=== PATIENT | female | born 1940 | race Caucasian/White ===

== ENCOUNTER → 2018-06-12 10:02 | Outpatient (CLI) | payer OTHER, SELFPAY ==
--- NOTE | 2018-06-12 10:20 | DI.REPORT_ITS ---
SYMPTOM/DIAGNOSIS: F/U RT PATELLA FX RIGHT KNEE: Two views. Comparison 06/04/18 There has been no change in alignment of the transverse fracture through the right patella. No new fractures or dislocations are seen. There is a persistent joint effusion present.
== END ==
PROVIDERS: PCP Family Medicine; Visit Provider Orthopaedic Surgery
DX: S82.034D Nondisplaced transverse fracture of right patella, subsequent encounter for closed fracture with routine healing (principal); W10.8XXD Fall (on) (from) other stairs and steps, subsequent encounter
CPT/HCPCS: 99213; 73560

== ENCOUNTER → 2018-06-19 10:20 | Outpatient (CLI) | payer OTHER, SELFPAY | PROVIDERS: PCP Family Medicine; Visit Provider Student in an Organized Health Care Education/Training Program | DX: R00.2 Palpitations (principal); I47.1 Supraventricular tachycardia | CPT/HCPCS: 0298T ==

== ENCOUNTER → 2018-06-25 12:59 | Outpatient (CLI) | payer OTHER, SELFPAY ==
--- NOTE | 2018-06-25 12:47 | DI.REPORT_ITS ---
SYMPTOMS/DIAGNOSIS: F/U RT PATELLA FRACTURE RIGHT KNEE: Comparison is made with 1Aug18. There has been no change in the alignment of the fracture extending transversely through the mid portion of the patella. Degenerative changes are again noted in the medial femoral tibial joint.
== END ==
PROVIDERS: PCP Family Medicine; Visit Provider Orthopaedic Surgery
DX: S82.034D Nondisplaced transverse fracture of right patella, subsequent encounter for closed fracture with routine healing (principal); W10.8XXD Fall (on) (from) other stairs and steps, subsequent encounter
CPT/HCPCS: 99213; 73560

== ENCOUNTER 2018-07-11 10:59 | Outpatient (CLI) | payer OTHER, SELFPAY ==
--- NOTE | 2018-07-11 11:16 | DI.REPORT_ITS ---
SYMPTOMS/DIAGNOSIS: F/U RT PATELLA FX RIGHT KNEE: When compared with previous images again noted is the nondisplaced fracture of the patella. There is some blurring of the fracture line and nothing to suggest that healing is not progressing satisfactorily at the present time.
== END 2018-07-11 11:00 ==
PROVIDERS: PCP Family Medicine; Visit Provider Orthopaedic Surgery
DX: S82.034D Nondisplaced transverse fracture of right patella, subsequent encounter for closed fracture with routine healing (principal); W10.8XXD Fall (on) (from) other stairs and steps, subsequent encounter
CPT/HCPCS: 99213; 73560

== ENCOUNTER 2018-08-02 00:58 | Outpatient (CLI) | payer OTHER, SELFPAY ==
[2018-08-02 14:35] LABS: TSH 2.24 uIU/mL (0.358-3.74)
== END 2018-08-02 01:18 ==
PROVIDERS: PCP Family Medicine; Visit Provider Family Medicine
DX: R79.89 Other specified abnormal findings of blood chemistry (principal)
CPT/HCPCS: 36415; 84443

== ENCOUNTER → 2018-08-13 10:32 | Outpatient (BNVA) | payer OTHER, SELFPAY | PROVIDERS: Visit Provider Orthopaedic Surgery | DX: S82.034D Nondisplaced transverse fracture of right patella, subsequent encounter for closed fracture with routine healing (principal); W10.8XXD Fall (on) (from) other stairs and steps, subsequent encounter | CPT/HCPCS: 99211; 99213 ==

== ENCOUNTER 2018-08-13 10:44 | Outpatient (CLI) | payer OTHER, SELFPAY ==
--- NOTE | 2018-08-13 11:11 | DI.RAD_ITS ---
SYMPTOMS/DIAGNOSIS: F/U RT PATELLA FRACTURE RIGHT KNEE: Two views were obtained and show previously described patellar fracture with no gross interval change in alignment in comparison with examination of 07/11.
== END 2018-08-13 11:04 ==
PROVIDERS: Visit Provider Orthopaedic Surgery
DX: S82.034D Nondisplaced transverse fracture of right patella, subsequent encounter for closed fracture with routine healing (principal)
CPT/HCPCS: 73560

== ENCOUNTER → 2018-08-21 09:25 | Outpatient (BNVA) | payer OTHER, SELFPAY | PROVIDERS: Visit Provider Internal Medicine Cardiovascular Disease | DX: I48.0 Paroxysmal atrial fibrillation (principal); R00.2 Palpitations; I49.1 Atrial premature depolarization; E05.90 Thyrotoxicosis, unspecified without thyrotoxic crisis or storm; E78.5 Hyperlipidemia, unspecified; I47.1 Supraventricular tachycardia | CPT/HCPCS: 99205; 99215 ==

== ENCOUNTER 2018-08-31 12:51 | Emergency (ER) | payer OTHER, SELFPAY ==
[2018-08-31 12:54] VITALS: BP 148/80; PULSE 58; RESP 16; TEMP 37.3; O2SAT 92
--- NOTE | 2018-08-31 13:01 | ED.GENADUL_ITS ---
Discharge Plan Disposition Patient Disposition: HOME Condition: Good Discharge Details Chief Complaint: EyeProblem Clinical Impression: Injury of conjunctiva and corneal abrasion of left eye w/o FB Primary Care Provider: Tatum Castano ED Provider: Pj Mckeon Home Meds and New Rx's Prescriptions: New erythromycin 5 mg/gram (0.5 %) ointment 1.25 cm OP TID 5 Days Qty: 1 RF: 0 Continue multivitamin 1 EACH tablet 1 ea PO DAILY RF: 0 [id number] [Cosamin ASU] 1 EACH capsule 1 ea PO DAILY RF: 0 cholecalciferol (vitamin D3) [Vitamin D3] 2,000 UNIT capsule 1,000 unit PO DAILY RF: 0 hydroxyzine HCl 10 MG tablet 10 mg PO DAILY Qty: 90 RF: 4 simvastatin [Zocor] 20 MG tablet 20 mg PO HS Qty: 90 RF: 4 carbidopa-levodopa 1 EACH tablet 1 ea PO DAILY Qty: 90 RF: 4 apixaban [Eliquis] 5 MG tablet 5 mg PO BID 30 Days Qty: 60 RF: 11 metoprolol tartrate 25 MG tablet 50 mg PO BID 30 Days Qty: 120 RF: 11 ranitidine HCl 300 mg tablet 300 mg PO DAILY Qty: 90 RF: 4 dextran 70-hypromellose [Tears Naturale II] 15 ML drops 2 drp OS DAILY RF: 0 Discharge Instructions Instructions: Corneal Abrasion (ED) Additional Instructions: if pain continues sunday follow up with your shipping and receiving specialist if you have deep eye pain or vision changes return to the emergency department Discharge Data Discharge Physician: Pj Mckeon Medical Decision Making Patient comes in with chief complaint of left eye pain. Was doing yard work and a stick scratched her left eye. Denies vision changes and on exam has corneal abrasion. No evidence of retained foreign body or globe rupture. Will d/c on abx ointment and have her f/u with her eye professional if she still has pain on Sunday Differential Diagnosis iritis, conjunctivitis, corneal abrasion HPI General Mode of arrival: ambulatory . Date/Time Provider Initiated Documentation: 08/31/18 12:57 . Limitations to Documentation: no limitations . Information obtained by: patient . History of Present Illness 78 year old F presents to the emergency department with the chief complaint of left eye pain, described as moderate, with intensity rated at 4. Quality is described as aching, and is localized to the eyes and left. Patient reports no radiation. Patient started experiencing this minute(s) (45) and it has been constant. No relieving factors improve symptom(s), No exacerbating factors reported . Patient notes no other symptoms.. Patient did receive the following treatments prior to arrival, none Related Data Home Medications Medication Instructions Recorded Confirmed multivitamin 1 ea PO DAILY 01/20/13 08/31/18 [id number] 1 ea PO DAILY tab-cap 01/09/14 08/31/18 [Cosamin ASU] cholecalciferol (vitamin D3) 1,000 unit PO DAILY 01/13/15 08/31/18 [Vitamin D3] hydroxyzine HCl 10 mg PO DAILY #90 tab 01/18/18 08/31/18 carbidopa-levodopa 1 ea PO DAILY #90 tab-cap 04/23/18 08/31/18 simvastatin [Zocor] 20 mg PO HS #90 tab-cap 04/23/18 08/31/18 dextran 70-hypromellose [Tears 2 drp OS DAILY 05/28/18 08/21/18 Naturale II] apixaban [Eliquis] 5 mg PO BID 30 Days #60 tab 06/14/18 08/31/18 metoprolol tartrate 50 mg PO BID 30 Days #120 tab 07/09/18 08/31/18 ranitidine 300 mg tablet 300 mg PO DAILY #90 tab 07/23/18 08/31/18 erythromycin 1.25 cm OP TID 5 Days #1 gm 08/31/18 Previous Rx's Medication Instructions Recorded hydroxyzine HCl 10 mg PO DAILY #90 tab 01/18/18 carbidopa-levodopa 1 ea PO DAILY #90 tab-cap 04/23/18 simvastatin [Zocor] 20 mg PO HS #90 tab-cap 04/23/18 apixaban [Eliquis] 5 mg PO BID 30 Days #60 tab 06/14/18 metoprolol tartrate 50 mg PO BID 30 Days #120 tab 07/09/18 ranitidine 300 mg tablet 300 mg PO DAILY #90 tab 07/23/18 erythromycin 1.25 cm OP TID 5 Days #1 gm 08/31/18 Allergies Allergy/AdvReac Type Severity Reaction Status Date / Time codeine AdvReac ITCHY NOSE Verified 08/31/18 12:59 General Stated Complaint: EyeProblem MARIA L: 4 Review of Systems Review of Systems All systems reviewed & are unremarkable except as noted in HPI and below Constitutional Denies chills, Denies fever(s) and Denies weakness Eyes Denies loss of vision ENT Denies change in voice Cardiovascular Denies chest pain and Denies dyspnea Respiratory Denies dyspnea Gastrointestinal Denies abdominal pain, Denies nausea and Denies vomiting Genitourinary Denies dysuria Integumentary/Breasts Denies rash Neurologic Denies loss of vision and Denies weakness Psychiatric Denies depression Endocrine Denies cold intolerance and Denies heat intolerance Allergic/Immunologic Denies urticaria PFSH Family History Mother Depression Father No problems noted. Sister RA (rheumatoid arthritis) Essential hypertension Brain aneurysm Hyperlipidemia Cerebrovascular accident Grandfather No problems noted. Grandfather No problems noted. Grandmother No problems noted. Grandmother No problems noted. Daughter No problems noted. Medical History Snoring (Chronic) Atrial tachycardia (Chronic) PAC (premature atrial contraction) (Chronic) Paroxysmal atrial fibrillation (Chronic) Hyperthyroidism (Resolved) Hyperlipidemia (Chronic) Hyperplastic colon polyp Osteoarthritis of left knee Restless legs syndrome (RLS) Social History Smoking/Tobacco Use Status: Never alcohol intake: current alcohol intake frequency: a few times a week Alcohol type: wine details: no alcohol at all in August 2018 Surgical History Appendectomy (~1956) Arthroplasty of knee (11/26/15) Cholecystectomy Colonoscopy - MAC (~02/2015) Meniscectomy (~2009) Exam Const General: no acute distress Orientation: alert [facility] Head: normal to inspection Ears: external ears normal General nose exam: external nose normal Mouth: moist mucous membranes Eyes Conjunctivae: other (right eye conjunctiva normal; left eye conjunctiva injected , no deep eye pain, no foreign body seen on eyelid eversion, [id number] corneal abrasion at 7 oclock, no evidence of globe rupture neg angelita test) Pupils: PERRL EOM: EOM intact bilaterally Neck Neck: normal visual inspection Resp Effort & Inspection: normal respiratory effort and able to speak in complete sentences Cardio Rate: regular rate Skin General skin exam: no rashes or lesions noted Neuro General: alert and oriented x3 Extrem General: normal to inspection Psych Mental Status: mental status grossly normal Course Vital Signs Temperature 37.3 C 08/31/18 12:54 Pulse 58 L 08/31/18 12:54 Respiratory Rate 16 08/31/18 12:54 Blood Pressure 148/80 H 08/31/18 12:54 Pulse Oximetry 92 L 08/31/18 12:54 Temperature 37.3 C 08/31/18 12:54 Temperature Source Skin 08/31/18 12:54 Pulse 58 L 08/31/18 12:54 Respiratory Rate 16 08/31/18 12:54 Respiratory Effort Non-Labored 08/31/18 12:57 Blood Pressure 148/80 H 08/31/18 12:54 Pulse Oximetry 92 L 08/31/18 12:54 Pain Level 2 08/31/18 12:54
== END 2018-08-31 13:34 | disposition home or self-care (01) ==
LOC: ER 13:41
PROVIDERS: Emergency Provider Emergency Medicine; PCP Family Medicine
DX: S05.02XA Injury of conjunctiva and corneal abrasion without foreign body, left eye, initial encounter (principal); W22.8XXA Striking against or struck by other objects, initial encounter; I10 Essential (primary) hypertension
CPT/HCPCS: 99283

== ENCOUNTER → 2018-12-20 09:20 | Outpatient (BNVA) | payer OTHER, SELFPAY | PROVIDERS: PCP Family Medicine; Visit Provider Internal Medicine Cardiovascular Disease | DX: I49.1 Atrial premature depolarization (principal); E05.90 Thyrotoxicosis, unspecified without thyrotoxic crisis or storm; E78.5 Hyperlipidemia, unspecified; I47.1 Supraventricular tachycardia; R00.2 Palpitations | CPT/HCPCS: 99214 ==

== ENCOUNTER 2019-01-24 10:30 | Emergency (ER) | payer OTHER, SELFPAY ==
[2019-01-24 10:39] VITALS: BP 136/66; PULSE 63; RESP 15; TEMP 36.6; O2SAT 97
--- NOTE | 2019-01-24 11:01 | W.ED.GENAD ---
Discharge Plan Disposition Patient Disposition: HOME Condition: Stable Discharge Details Chief Complaint: Sorethroat Clinical Impression: Acute pharyngitis Primary Care Provider: Tatum Castano ED Provider: Tal Lyons Home Meds and New Rx's Prescriptions: Continued ropinirole 0.5 mg tablet 1 mg PO QHS RF: 0 multivitamin 1 EACH tablet 1 ea PO DAILY RF: 0 Cosamin ASU 1 EACH capsule 1 ea PO DAILY RF: 0 cholecalciferol (vitamin D3) [Vitamin D3] 2,000 UNIT capsule 1,000 unit PO DAILY RF: 0 hydroxyzine HCl 10 MG tablet 10 mg PO DAILY Qty: 90 RF: 4 simvastatin [Zocor] 20 MG tablet 20 mg PO HS Qty: 90 RF: 4 Eliquis 5 MG tablet 5 mg PO BID 30 Days Qty: 60 RF: 11 metoprolol tartrate 25 MG tablet 50 mg PO BID 30 Days Qty: 120 RF: 11 ranitidine HCl 300 mg tablet 300 mg PO DAILY Qty: 90 RF: 4 Tears Naturale II 15 ML drops 2 drp OS DAILY RF: 0 Discharge Instructions Instructions: Pharyngitis (ED) Additional Instructions: You may continue to use your gargles and take appropriate [id number] sore throat lozenges. Please stay well-hydrated during illness and follow-up with your primary care provider as needed for reassessment. Feel free to return to the emergency department for any further concerns Referrals: Tatum Castano MD [Primary Care Provider] - (As needed for reassessment) Discharge Data Discharge Date/Time-TO BE ENTERED AT DEPARTURE: 01/24/19 11:47 Medical Decision Making Patient presenting to the emergency department for chief complaint of sore throat. Patient reports that this began approximately 1 week ago and has been persistent. Patient states that she has been doing salt water gargles but has not helped. She does state that she over the past 2 days has developed some nasal congestion but otherwise has had no fever chills, no difficulty swallowing or breathing, no cough, or other symptoms. Physical exam shows a extremely mild erythematous tonsils that have no hypertrophy, no exudates, uvula midline no other worrisome findings. Given center criteria patient is at very low risk for strep pharyngitis but patient is very concerned about having it so she was offered rapid strep testing which she stated that she would prefer this given duration of symptoms. Rapid strep testing was performed and negative. Patient was encouraged to continue [id number] symptomatic medication as appropriate and to follow-up with primary care provider for any reassessment as needed. Return precautions discussed. After discussion of diagnosis and plan of care patient has no further needs, questions, or concerns and states clear understanding to return to the emergency department for any worsening symptoms. HPI General Mode of arrival: ambulatory. Date/Time Provider Initiated Documentation: 01/24/19 10:33. Limitations to Documentation: no limitations. Information obtained by: patient and RN notes reviewed. History of Present Illness 78 year old F presents to the emergency department with the chief complaint of sore throat, described as mild, with intensity rated at 2. Quality is described as aching, and is localized to the mouth (sore throat). Patient started experiencing this week(s) (1) and it has been constant. No relieving factors improve symptom(s), No exacerbating factors reported . Patient did receive the following treatments prior to arrival, other (Salt water gargle) Related Data Home Medications Medication Instructions Recorded Confirmed multivitamin 1 ea PO DAILY 01/20/13 12/20/18 Cosamin ASU 1 ea PO DAILY tab-cap 01/09/14 12/20/18 cholecalciferol (vitamin D3) 1,000 unit PO DAILY 01/13/15 12/20/18 [Vitamin D3] hydroxyzine HCl 10 mg PO DAILY #90 tab 01/18/18 12/20/18 simvastatin [Zocor] 20 mg PO HS #90 tab-cap 04/23/18 12/20/18 Tears Naturale II 2 drp OS DAILY 05/28/18 12/20/18 Eliquis 5 mg PO BID 30 Days #60 tab 06/14/18 12/20/18 metoprolol tartrate 50 mg PO BID 30 Days #120 tab 07/09/18 12/20/18 ranitidine 300 mg tablet 300 mg PO DAILY #90 tab 07/23/18 12/20/18 ropinirole 0.5 mg tablet 1 mg PO QHS tab 12/20/18 12/20/18 Previous Rx's Medication Instructions Recorded hydroxyzine HCl 10 mg PO DAILY #90 tab 01/18/18 simvastatin [Zocor] 20 mg PO HS #90 tab-cap 04/23/18 Eliquis 5 mg PO BID 30 Days #60 tab 06/14/18 metoprolol tartrate 50 mg PO BID 30 Days #120 tab 07/09/18 ranitidine 300 mg tablet 300 mg PO DAILY #90 tab 07/23/18 Allergies Allergy/AdvReac Type Severity Reaction Status Date / Time codeine AdvReac ITCHY NOSE Verified 01/24/19 10:47 General Stated Complaint: Sorethroat MARIA L: 4 Review of Systems Constitutional Denies chills, Denies fever(s), Denies headache(s) and Denies malaise ENT Denies change in voice, Denies dysphagia, Denies otalgia, Denies headache(s), Reports hoarseness, Denies lip swelling, Denies mouth lesions, Reports nasal congestion, Reports odynophagia, Reports sore throat, Denies throat swelling and Denies tongue swelling Cardiovascular Denies chest pain Respiratory Denies chest congestion and Denies cough Gastrointestinal Denies dysphagia and Reports odynophagia Neurologic Denies headache(s) Allergic/Immunologic Denies lip swelling, Denies throat swelling and Denies tongue swelling [facility] Medical History Snoring (Chronic) Atrial tachycardia (Chronic) PAC (premature atrial contraction) (Chronic) Paroxysmal atrial fibrillation (Chronic) Hyperthyroidism (Resolved) Hyperlipidemia (Chronic) Hyperplastic colon polyp Osteoarthritis of left knee Restless legs syndrome (RLS) Surgical History Appendectomy (~1956) Arthroplasty of knee (11/26/15) Cholecystectomy Colonoscopy - MAC (~02/2015) Meniscectomy (~2009) Family History Mother Depression Father No problems noted. Sister RA (rheumatoid arthritis) Essential hypertension Brain aneurysm Hyperlipidemia Stroke Grandfather No problems noted. Grandfather No problems noted. Grandmother No problems noted. Grandmother No problems noted. Daughter No problems noted. Social History Smoking/Tobacco Use Status: Never Alcohol Intake: current Alcohol Intake frequency: a few times a week Alcohol type: wine Details: no alcohol at all in August 2018 Drug use: Never Substance use type: does not use Do you feel safe at home: Yes Do you feel safe in your relationship?: Yes Exam Const General: cooperative, healthy appearing, comfortable, no acute distress and not ill appearing Orientation: alert, awake and oriented x3 HENMT Head: normal to inspection and normocephalic Ears: hearing grossly normal bilaterally, external ears normal, TM's normal bilaterally and mastoids normal General nose exam: external nose normal and nares normal Face and sinus: normal facial exam Mouth: oral mucosae normal, lip normal, tongue normal, no audible dysphonia, no drooling and no trismus Throat: uvula midline, abnormal tonsil bilaterally erythema; no exudates and no hypertrophy and no peritonsillar masses Neck Neck: normal visual inspection, full ROM, no lymphadenopathy and no meningeal signs Resp Effort & Inspection: normal respiratory effort, able to speak in complete sentences and no stridor Auscultation: clear to auscultation bilaterally Cardio Rate: regular rate Rhythm: regular rhythm Heart Sounds: S1 normal and S2 normal Skin General skin exam: no rashes or lesions noted Course Vital Signs Temperature 36.6 C 01/24/19 10:39 Pulse 63 01/24/19 10:39 Respiratory Rate 15 01/24/19 10:39 Blood Pressure 136/66 01/24/19 10:39 Pulse Oximetry 97 01/24/19 10:39 Temperature 36.6 C 01/24/19 10:39 Temperature Source Temporal Artery Scan 01/24/19 10:39 Pulse 63 01/24/19 10:39 Respiratory Rate 15 01/24/19 10:39 Blood Pressure 136/66 01/24/19 10:39 Blood Pressure Position Sitting 01/24/19 10:39 Pulse Oximetry 97 01/24/19 10:39 Oxygen Delivery Method Room Air 01/24/19 10:39 Oxygen Flow Rate 0 01/24/19 10:39 Pain Level 2 01/24/19 10:39
--- NOTE | 2019-01-24 11:06 | ED.GENADUL_ITS ---
Discharge Plan Disposition Patient Disposition: HOME Condition: Stable Discharge Details Chief Complaint: Sorethroat Clinical Impression: Acute pharyngitis Primary Care Provider: Tatum Castano ED Provider: Tal Lyons Home Meds and New Rx's Prescriptions: Continued ropinirole 0.5 mg tablet 1 mg PO QHS RF: 0 multivitamin 1 EACH tablet 1 ea PO DAILY RF: 0 Cosamin ASU 1 EACH capsule 1 ea PO DAILY RF: 0 cholecalciferol (vitamin D3) [Vitamin D3] 2,000 UNIT capsule 1,000 unit PO DAILY RF: 0 hydroxyzine HCl 10 MG tablet 10 mg PO DAILY Qty: 90 RF: 4 simvastatin [Zocor] 20 MG tablet 20 mg PO HS Qty: 90 RF: 4 Eliquis 5 MG tablet 5 mg PO BID 30 Days Qty: 60 RF: 11 metoprolol tartrate 25 MG tablet 50 mg PO BID 30 Days Qty: 120 RF: 11 ranitidine HCl 300 mg tablet 300 mg PO DAILY Qty: 90 RF: 4 Tears Naturale II 15 ML drops 2 drp OS DAILY RF: 0 Discharge Instructions Instructions: Pharyngitis (ED) Additional Instructions: You may continue to use your gargles and take appropriate [id number] sore throat lozenges. Please stay well-hydrated during illness and follow-up with your primary care provider as needed for reassessment. Feel free to return to the emergency department for any further concerns Referrals: Tatum Castano MD [Primary Care Provider] - (As needed for reassessment) Discharge Data Discharge Date/Time-TO BE ENTERED AT DEPARTURE: 01/24/19 11:47 Medical Decision Making Patient presenting to the emergency department for chief complaint of sore throat. Patient reports that this began approximately 1 week ago and has been persistent. Patient states that she has been doing salt water gargles but has not helped. She does state that she over the past 2 days has developed some n marly congestion but otherwise has had no fever chills, no difficulty swallowing or breathing, no cough, or other symptoms. Physical exam shows a extremely mild erythematous tonsils that have no hypertrophy, no exudates, uvula midline no other worrisome findings. Given center criteria patient is at very low risk for strep pharyngitis but patient is very concerned about having it so she was offered rapid strep testing which she stated that she would prefer this given duration of symptoms. Rapid strep testing was performed and negative. Patient was encouraged to continue [id number] symptomatic medication as appropriate and to follow-up with primary care provider for any reassessment as needed. Return precautions discussed. After discussion of diagnosis and plan of care patient has no further needs, questions, or concerns and states clear understanding to return to the emergency department for any worsening symptoms. HPI General Mode of arrival: ambulatory . Date/Time Provider Initiated Documentation: 01/24/19 10:33 . Limitations to Documentation: no limitations . Information obtained by: patient and RN notes reviewed . History of Present Illness 78 year old F presents to the emergency department with the chief complaint of sore throat, described as mild, with intensity rated at 2. Quality is described as aching, and is localized to the mouth (sore throat). Patient started experiencing this week(s) (1) and it has been constant. No relieving factors improve symptom(s), No exacerbating factors reported . Patient did receive the following treatments prior to arrival, other (Salt water gargle) Related Data Home Medications Medication Instructions Recorded Confirmed multivitamin 1 ea PO DAILY 01/20/13 12/20/18 Cosamin ASU 1 ea PO DAILY tab-cap 01/09/14 12/20/18 cholecalciferol (vitamin D3) 1,000 unit PO DAILY 01/13/15 12/20/18 [Vitamin D3] hydroxyzine HCl 10 mg PO DAILY #90 tab 01/18/18 12/20/18 simvastatin [Zocor] 20 mg PO HS #90 tab-cap 04/23/18 12/20/18 Tears Naturale II 2 drp OS DAILY 05/28/18 12/20/18 Eliquis 5 mg PO BID 30 Days #60 tab 06/14/18 12/20/18 metoprolol tartrate 50 mg PO BID 30 Days #120 tab 07/09/18 12/20/18 ranitidine 300 mg tablet 300 mg PO DAILY #90 tab 07/23/18 12/20/18 ropinirole 0.5 mg tablet 1 mg PO QHS tab 12/20/18 12/20/18 Previous Rx's Medication Instructions Recorded hydroxyzine HCl 10 mg PO DAILY #90 tab 01/18/18 simvastatin [Zocor] 20 mg PO HS #90 tab-cap 04/23/18 Eliquis 5 mg PO BID 30 Days #60 tab 06/14/18 metoprolol tartrate 50 mg PO BID 30 Days #120 tab 07/09/18 ranitidine 300 mg tablet 300 mg PO DAILY #90 tab 07/23/18 Allergies Allergy/AdvReac Type Severity Reaction Status Date / Time codeine AdvReac ITCHY NOSE Verified 01/24/19 10:47 General Stated Complaint: Sorethroat MARIA L: 4 Review of Systems Constitutional Denies chills, Denies fever(s), Denies headache(s) and Denies malaise ENT Denies change in voice, Denies dysphagia, Denies otalgia, Denies headache(s), Reports hoarseness, Denies lip swelling, Denies mouth lesions, Reports nasal congestion, Reports odynophagia, Reports sore throat, Denies throat swelling and Denies tongue swelling Cardiovascular Denies chest pain Respiratory Denies chest congestion and Denies cough Gastrointestinal Denies dysphagia and Reports odynophagia Neurologic Denies headache(s) Allergic/Immunologic Denies lip swelling, Denies throat swelling and Denies tongue swelling [facility] Medical History Snoring (Chronic) Atrial tachycardia (Chronic) PAC (premature atrial contraction) (Chronic) Paroxysmal atrial fibrillation (Chronic) Hyperthyroidism (Resolved) Hyperlipidemia (Chronic) Hyperplastic colon polyp Osteoarthritis of left knee Restless legs syndrome (RLS) Surgical History Appendectomy (~1956) Arthroplasty of knee (11/26/15) Cholecystectomy Colonoscopy - MAC (~02/2015) Meniscectomy (~2009) Family History Mother Depression Father No problems noted. Sister RA (rheumatoid arthritis) Essential hypertension Brain aneurysm Hyperlipidemia Stroke Grandfather No problems noted. Grandfather No problems noted. Grandmother No problems noted. Grandmother No problems noted. Daughter No problems noted. Social History Smoking/Tobacco Use Status: Never Alcohol Intake: current Alcohol Intake frequency: a few times a week Alcohol type: wine Details: no alcohol at all in August 2018 Drug use: Never Substance use type: does not use Do you feel safe at home: Yes Do you feel safe in your relationship?: Yes Exam Const General: cooperative, healthy appearing, comfortable, no acute distress and not ill appearing Orientation: alert, awake and oriented x3 HENMT Head: normal to inspection and normocephalic Ears: hearing grossly normal bilaterally, external ears normal, TM's normal bilaterally and mastoids normal General nose exam: external nose normal and nares normal Face and sinus: normal facial exam Mouth: oral mucosae normal, lip normal, tongue normal, no audible dysphonia, no drooling and no trismus Throat: uvula midline, abnormal tonsil bilaterally erythema; no exudates and no hypertrophy and no peritonsillar masses Neck Neck: normal visual inspection, full ROM, no lymphadenopathy and no meningeal signs Resp Effort & Inspection: normal respiratory effort, able to speak in complete sentences and no stridor Auscultation: clear to auscultation bilaterally Cardio Rate: regular rate Rhythm: regular rhythm Heart Sounds: S1 normal and S2 normal Skin General skin exam: no rashes or lesions noted Course Vital Signs Temperature 36.6 C 01/24/19 10:39 Pulse 63 01/24/19 10:39 Respiratory Rate 15 01/24/19 10:39 Blood Pressure 136/66 01/24/19 10:39 Pulse Oximetry 97 01/24/19 10:39 Temperature 36.6 C 01/24/19 10:39 Temperature Source Temporal Artery Scan 01/24/19 10:39 Pulse 63 01/24/19 10:39 Respiratory Rate 15 01/24/19 10:39 Blood Pressure 136/66 01/24/19 10:39 Blood Pressure Position Sitting 01/24/19 10:39 Pulse Oximetry 97 01/24/19 10:39 Oxygen Delivery Method Room Air 01/24/19 10:39 Oxygen Flow Rate 0 01/24/19 10:39 Pain Level 2 01/24/19 10:39
== END 2019-01-24 11:47 | disposition home or self-care (01) ==
PROVIDERS: Emergency Provider Nurse Practitioner Family; PCP Family Medicine
DX: J02.9 Acute pharyngitis, unspecified (principal)
CPT/HCPCS: 87880; 99282; 87081

== ENCOUNTER 2019-02-26 22:22 | Emergency (ER) | payer OTHER, SELFPAY ==
[2019-02-26 22:25] VITALS: BP 173/77; PULSE 86; RESP 20; TEMP 36.2; O2SAT 98
[2019-02-26 22:39] VITALS: BP 154/76
--- NOTE | 2019-02-26 23:06 | W.ED.GENAD ---
Discharge Plan Disposition Patient Disposition: HOME Condition: Good Discharge Details Chief Complaint: GenMedical Clinical Impression: Blood pressure elevated without history of HTN Primary Care Provider: Tatum Castano ED Provider: Mario Negrete and New Rx's Prescriptions: Continued Shingrix (PF) 50 mcg/0.5 mL suspension for reconstitution 0.5 ml IM ONCE Qty: 1 RF: 1 hydroxyzine HCl 10 mg tablet 10 mg PO DAILY Qty: 90 RF: 4 ropinirole 0.5 mg tablet 0.5 - 1 mg PO QHS RF: 0 multivitamin 1 EACH tablet 1 ea PO DAILY RF: 0 Cosamin ASU 1 EACH capsule 1 ea PO DAILY RF: 0 cholecalciferol (vitamin D3) [Vitamin D3] 2,000 UNIT capsule 1,000 unit PO DAILY RF: 0 simvastatin [Zocor] 20 MG tablet 20 mg PO HS Qty: 90 RF: 4 Eliquis 5 MG tablet 5 mg PO BID 30 Days Qty: 60 RF: 11 metoprolol tartrate 25 MG tablet 50 mg PO BID 30 Days Qty: 120 RF: 11 ranitidine HCl 300 mg tablet 300 mg PO HS RF: 0 Discharge Instructions Additional Instructions: Continue medications as before. The new pill is metoprolol. Check blood pressure once or twice a day and keep a log. Follow-up with primary care next week to review. Return to ED for severe headache, neurologic change, chest pain, shortness of breath. Referrals: Tatum Castano MD [Primary Care Provider] - Discharge Data Discharge Date/Time-TO BE ENTERED AT DEPARTURE: 02/26/19 23:23 Medical Decision Making Patient blood pressure came down on its own. While it is higher than baseline, it is not something that I would treat. We did look at the pill imprint. It is metoprolol. She was relieved by this. No specific symptoms. No workup needed. We will have her check and document blood pressure the rest of the week and follow-up with primary care next week. Return to ED for severe headache, neurologic changes, chest pain, shortness of breath, markedly elevated/persistently elevated blood pressure. HPI General Mode of arrival: ambulatory. Date/Time Provider Initiated Documentation: 02/26/19 22:50. Limitations to Documentation: no limitations. Information obtained by: patient. HPI Narrative: Patient presents to ED with elevated blood pressure. Patient does not have history of high blood pressure. She does have history of atrial fibrillation. She recently had to change pharmacies. She picked up a new prescription of metoprolol. It is a different pill than the previous one. She has felt different since starting it. She feels a little anxious and short of breath at times. She admits that this can be a problem. Tonight after taking the new pill she felt a little worse. She took her blood pressure was quite high at home so she came in for evaluation. She denies headache. She denies neurologic changes. She denies any type of chest pain. She may be felt a little bit short of breath but reports that this can happen with anxiety. She is mostly concerned that the new pill is not metoprolol. Related Data Home Medications Medication Instructions Recorded Confirmed multivitamin 1 ea PO DAILY 01/20/13 02/26/19 Cosamin ASU 1 ea PO DAILY tab-cap 01/09/14 02/26/19 cholecalciferol (vitamin D3) 1,000 unit PO DAILY 01/13/15 02/26/19 [Vitamin D3] simvastatin [Zocor] 20 mg PO HS #90 tab-cap 04/23/18 02/26/19 Eliquis 5 mg PO BID 30 Days #60 tab 06/14/18 02/26/19 metoprolol tartrate 50 mg PO BID 30 Days #120 tab 07/09/18 02/26/19 hydroxyzine HCl 10 mg tablet 10 mg PO DAILY #90 tab 02/12/19 02/26/19 ropinirole 0.5 mg tablet 0.5 - 1 mg PO QHS tab 02/12/19 02/26/19 varicella-zoster glycoE [id number] 0.5 ml IM ONCE #1 each 02/12/19 02/12/19 adj(PF) 50 mcg/0.5 mL IM susp, kit ranitidine HCl 300 mg PO HS 02/26/19 02/26/19 Previous Rx's Medication Instructions Recorded simvastatin [Zocor] 20 mg PO HS #90 tab-cap 04/23/18 Eliquis 5 mg PO BID 30 Days #60 tab 06/14/18 metoprolol tartrate 50 mg PO BID 30 Days #120 tab 07/09/18 hydroxyzine HCl 10 mg tablet 10 mg PO DAILY #90 tab 02/12/19 varicella-zoster glycoE [id number] 0.5 ml IM ONCE #1 each 02/12/19 adj(PF) 50 mcg/0.5 mL IM susp, kit Allergies Allergy/AdvReac Type Severity Reaction Status Date / Time codeine AdvReac ITCHY NOSE Verified 02/26/19 22:32 General Stated Complaint: GenMedical MARIA L: 4 Review of Systems Review of Systems As documented in HPI otherwise negative as below. Const: no fever, chills, weakness Resp: slight SOB; no cough, pleuritic pain CV: no CP, diaphoresis, edema, syncope GI: no abdominal pain, nausea, vomiting, diarrhea Neuro: no headache, numbness, focal weakness, confusion PFSH Medical History Snoring (Chronic) Atrial tachycardia (Chronic) PAC (premature atrial contraction) (Chronic) Paroxysmal atrial fibrillation (Chronic) Hyperthyroidism (Resolved) Hyperlipidemia (Chronic) Hyperplastic colon polyp Osteoarthritis of left knee Restless legs syndrome (RLS) Surgical History Appendectomy (~1956) Arthroplasty of knee (11/26/15) Cholecystectomy Colonoscopy - MAC (~02/2015) Meniscectomy (~2009) Social History Smoking/Tobacco Use Status: Former Tobacco Use Quit Date: 11/12/83 Second Hand Exposure: Yes Alcohol Intake: former Details: no alcohol at all in August 2018 Drug use: Never Substance use type: does not use Caregiver/Support person: No Household members: spouse Communication Needs: None Pets and animals: Yes Pets and animals: cat(s) Sexually active: Yes Do you think of yourself as: straight/heterosexual What is your relationship status?: How often do you talk on the phone with friends or family?: three or more times per week How often do you get together with friends or relatives?: three or more times per week How often do you attend quaker or yazidism services?: 1-3 times per year Do you belong to any clubs or organized social groups?: yes Panel score (0-1 are the most socially isolated patients): 3 What type of physical activity do you participate in: independent ambulation Duration: decline to answer Frequency: decline to answer Theodora/Latter-Day: Muslim Special theodora needs: No Seatbelt use: always Helmet use: No Drive intox or ride w/intox route delivery service driver: No Do you feel safe at home: Yes Do you feel safe in your relationship?: Yes Exam Narrative Exam Narrative: Vitals: elevated BP otherwise normal. Const: WDWN elderly female in NAD. HEENT: NC/AT. Normal facial exam. Eyes: Normal conjunctiva and sclera. Neck: Supple. Trachea midline. Lungs: Normal respiratory effort. Lungs are clear. Cor: RRR without murmur/gallop. Good radial pulses. GI: Soft. NT/ND. No guarding or rebound. Neuro: A+O x 3. CN grossly in tact. Good strength and no focal deficit. Normal gait and speech. Ext: No C/C/E. No deformity or tenderness. Skin: Warm and dry without rash. Course Vital Signs Temperature 97.2 F L 02/26/19 22:25 Pulse 86 02/26/19 22:25 Respiratory Rate 20 02/26/19 22:25 Blood Pressure 173/77 H 02/26/19 22:25 Pulse Oximetry 98 02/26/19 22:25 Temperature 97.2 F L 02/26/19 22:25 Temperature Source Skin 02/26/19 22:25 Pulse 86 02/26/19 22:25 Respiratory Rate 20 02/26/19 22:25 Respiratory Effort Non-Labored 02/26/19 22:39 Respiratory Depth Normal 02/26/19 22:39 Respiratory Pattern Normal 02/26/19 22:39 Blood Pressure 154/76 H 02/26/19 22:39 Blood Pressure Position Sitting 02/26/19 22:25 Pulse Oximetry 98 02/26/19 22:25 Oxygen Delivery Method Room Air 02/26/19 22:25 Oxygen Flow Rate 0 02/26/19 22:25 Pain Level 0 02/26/19 22:25
== END 2019-02-26 23:23 | disposition home or self-care (01) ==
PROVIDERS: Emergency Provider Emergency Medicine; PCP Family Medicine
DX: R03.0 Elevated blood-pressure reading, without diagnosis of hypertension (principal)
CPT/HCPCS: 99282

== ENCOUNTER 2019-04-09 08:30 | Outpatient (CLI) | payer OTHER, SELFPAY ==
[2019-04-09 10:44] LABS: ALT 24 U/L (12-78); AST 19 U/L (15-37); Albumin 3.8 g/dL (3.4-5.0); Alkaline Phosphatase 77 U/L (46-116); Anion Gap 10.6 mmol/L (3-11); BUN 16 mg/dL (7-18); Bilirubin, Total 0.6 mg/dL (0.2-1.0); CO2 26.4 mmol/L (21.0-32.0); CREATININE 0.89 mg/dL (0.55-1.02); Calcium 8.8 mg/dL (8.5-10.1); Chloride 105 mmol/L (98-107); Cholesterol 169 mg/dL (50-200); Glucose 94 mg/dL (70-100); HDL Cholesterol 53 mg/dL (40-60); LDL CHOLESTEROL 101 mg/dL (<100); Potassium 4.5 mmol/L (3.5-5.1); Sodium 142 mmol/L (136-145); TSH 2.82 uIU/mL (0.358-3.74); Triglyceride 83 mg/dL (30-150)
--- NOTE | 2019-04-09 13:30 | DI.MAMMO_ITS ---
SYMPTOM/DIAGNOSIS: SCREENING, Z12.31 MAMMOGRAMS: Mammograms were interpreted according to the usual protocol including computer analysis with CAD system, tomosynthesis and C view imaging. The breasts are heterogeneously radiodense which lowers the sensitivity of the study. There is no dominant mass. There are no suspicious calcifications and there has been no significant interval change when compared with prior images. SUMMARY: No evidence of malignancy, category 1, yearly screening mammography is recommended. Breast density, Category C. SA ASSESSMENT OF FINDINGS: Negative. Category 1. Patient will receive a letter notifying them of these results. Bi-RADS category C. The breasts are heterogeneously dense, which may obscure small masses.
== END 2019-04-09 08:50 ==
PROVIDERS: PCP Family Medicine; Visit Provider Obstetrics & Gynecology Gynecology
DX: Z12.31 Encounter for screening mammogram for malignant neoplasm of breast (principal); E78.5 Hyperlipidemia, unspecified; E05.90 Thyrotoxicosis, unspecified without thyrotoxic crisis or storm
CPT/HCPCS: 36415; 77063; 77067; 80053; 80061; 83721; 84443

== ENCOUNTER → 2019-07-24 09:21 | Outpatient (BNVA) | payer OTHER, SELFPAY | PROVIDERS: PCP Family Medicine; Visit Provider Internal Medicine Cardiovascular Disease | DX: I48.0 Paroxysmal atrial fibrillation (principal); E78.5 Hyperlipidemia, unspecified; I49.1 Atrial premature depolarization; R06.83 Snoring; G47.33 Obstructive sleep apnea (adult) (pediatric); R53.83 Other fatigue | CPT/HCPCS: 99214 ==

== ENCOUNTER → 2020-07-06 09:33 | Outpatient (BNVA) | payer OTHER, SELFPAY | PROVIDERS: PCP Family Medicine; Referring Provider Family Medicine; Visit Provider Orthopaedic Surgery | DX: M65.331 Trigger finger, right middle finger (principal); M65.341 Trigger finger, right ring finger; M65.351 Trigger finger, right little finger | CPT/HCPCS: 99214 ==

== ENCOUNTER 2020-07-13 00:57 | Outpatient (CLI) | payer OTHER, SELFPAY | END 2020-07-13 01:17 | PROVIDERS: PCP Family Medicine; Visit Provider Obstetrics & Gynecology Gynecology | DX: R69 Illness, unspecified (principal) ==

== ENCOUNTER 2020-07-14 10:15 | Outpatient (REF) | payer OTHER, SELFPAY | END 2020-07-14 10:35 | LOC: LBN 10:15 | PROVIDERS: PCP Family Medicine; Visit Provider Family Medicine | DX: R30.0 Dysuria (principal) | CPT/HCPCS: 87086 ==

== ENCOUNTER 2020-07-16 04:24 | Outpatient (CLI) | payer OTHER, SELFPAY ==
--- NOTE | 2020-07-16 | DI.MAMMO_ITS ---
EXAM: MG MAMMO SCREENING CLINICAL HISTORY: SCREENING, Z12.39 TECHNIQUE: Bilateral full field digital CC and MLO mammographic images were obtained with 3D tomosyn thesis and utilizing computer aided detection (CAD). COMPARISON: Available for comparison. FINDINGS: Masses/Architectural Distortion: None seen. Microcalcifications: No suspicious pleomorphic-type are seen. Skin Thickening/Nipple Retraction: None. IMPRESSION: 1. No significant interval change with no specific features of malignancy noted. 2. Unless there is more urgent need, screening mammography is recommended, as per [employer] guidelines. BI-RADS Category 1 - Negative Breast Density - Category C - Heterogeneously dense The mammogram demonstrates the patient's breast tissue is dense. Dense breast tissue is very common a nd is not abnormal but dense breast tissue can make it harder to find cancer on a mammogram. Also, de nse breast tissue may increase their breast cancer risk. This information about the result of the [facility] mogram report was provided to the patient to raise their awareness. Use this report when you speak wi th the patient about their risks for breast cancer, which includes their family history. At that time , you may recommend for more screening tests (Ultrasound or MRI) as they might be useful based on the ir risk. A negative radiographic report should not delay biopsy if a dominant or clinically suspicious mass is present. Up to ten percent of cancers are not identified on mammography. A negative report may reinforce clinical impression. Adenosis and dense breasts may obscure an underlying neoplasm. False positive reports average 6 to 10%. Patient will receive a letter notifying them of these results.
== END 2020-07-16 04:44 ==
PROVIDERS: PCP Family Medicine; Visit Provider Obstetrics & Gynecology Gynecology
DX: Z12.31 Encounter for screening mammogram for malignant neoplasm of breast (principal); R92.2 Inconclusive mammogram
CPT/HCPCS: 77063; 77067

== ENCOUNTER 2020-08-02 01:08 | Outpatient (CLI) | payer OTHER, SELFPAY ==
--- NOTE | 2020-08-02 07:30 | DI.US_ITS ---
EXAM: US RENAL CLINICAL HISTORY: macro. hematuria/mild symptoms/neg.culture/Eliquis,r31.9. TECHNIQUE: Jimenez scale, color and spectral Doppler were used. COMPARISON: No exams were available for comparison FINDINGS: Renal size in cm: Right: 9.4. Left: 8.3. Echogenicity: Normal. Hydronephrosis: No. Cyst or mass: No. Nephrolithiasis: No. Other findings: None. Bladder:Normal. Ureteral jets: Right: Visualized and unremarkable. Left: Visualized and unremarkable. Prevoid vol:6.7 cc Postvoid vol:0 cc Renal color flow: Symmetric and within normal limits. IMPRESSION: Unremarkable examination. DATA REPOSITORY:
== END 2020-08-02 01:28 ==
PROVIDERS: PCP Family Medicine; Visit Provider Family Medicine
DX: R31.9 Hematuria, unspecified (principal)
CPT/HCPCS: 76770

== ENCOUNTER 2020-10-19 08:35 | Outpatient (CLI) | payer OTHER, SELFPAY ==
[2020-10-22 19:17] LABS: COVID-19 RT-PCR Result NEGATIVE (Negative)
== END 2020-10-19 08:55 ==
PROVIDERS: PCP Family Medicine; Visit Provider Family Medicine
DX: Z11.59 Encounter for screening for other viral diseases (principal)
CPT/HCPCS: U0003

== ENCOUNTER 2020-12-25 10:06 | Emergency (ER) | payer MEDICARE, SELFPAY ==
[2020-12-25 10:10] VITALS: BP 160/75; PULSE 79; RESP 18; TEMP 36.2; O2SAT 98
[2020-12-25 10:34] LABS: Blood Large (Negative); Glucose Negative (Negative); Ketones Negative (Negative); Leukocyte Esterase Trace (Negative); Nitrite Negative (Negative); Specific Gravity >= 1.030 (1.005-1.025); pH 5.5 (5-8)
--- OUTSIDE RECORDS SUMMARY | 2020-12-25 10:43 | XMS_ITS ---
:1940 Author Care Team Providers Name Role Phone BARON LINDSEY MD Primary Care Provider [phone] AARON GODINEZ MD Referring Provider [phone] Allergies Code Code System Name Reaction Severity Status Onset 2670 RxNorm Codeine ? ? Active ? Medications Name Status Start Date Stop Date ? ? carbidopa 10 mg-levodopa 100 mg tablet Active 9 Not available Take 1 tablet every day by oral route at bedtime. dextran 70-hypromellose Completed ? 12/02/19 19 2 drops daily Eliquis 5 mg tablet Active ? Not availabl e erythromycin 5 mg/gram (0.5 %) Active ? N ot available eye ointment [id number] Active ? N ot available 1 tab daily hydroxyzine HCl 10 mg tablet Active ? Not available metoprolol tartrate 25 mg Active ? Not av ailable tablet metoprolol tartrate 50 mg tablet Active ? Not available Take 1 tablet twice a day by oral route. multivitamin Active ? Not available 1 tab daily ranitidine 300 mg tablet Active ? Not linda ilable ropinirole 0.5 mg tablet Completed ? 019 Shingrix (PF) 50 mcg/0.5 mL Active ? Not available intramuscular suspension, kit simvastatin 20 mg tablet Active ? Not linda ilable tramadol 50 mg tablet Completed ? 02/25/2019 Vitamin D3 25 mcg (1,000 unit) capsule Active ? Not available Take 1 capsule every day by oral route. Problems Name Status Onset Date Source ? Hyperthyroidism Active ? ? Thyrotoxicosis Active ? ? Hyperlipidemia Active ? ? Paroxysmal Atrial Fibrillation Active ? ? Atrial Tachycardia Active ? ? Supraventricular Tachycardia Active ? ? Palpitations Active ? ? Procedures None recorded. Results Lab Results Date Name Specimen Result Interpretation Description Value Range Status Address ? 12/02/2018 Ferritin, S - [phone] [facility] [place] Serum or NG/mL NG/mL Hospital Lab Plasma (Internal) : [address] Past Encounters None recorded. Social History Tobacco Smoking Status Former Smoker Notes: 1 pack per week for 10 years, quit in 1984 Vaccine List None recorded. Plan of Care Reminders Provider Appointments None ? ? recorded. Lab None ? ? recorded. Referral None ? ? recorded. Procedures None ? ? recorded. Surgeries None ? ? recorded. Imaging None ? ? recorded. Vitals 02/25/2019 10:00AM Office 30 Height Weight BMI Blood Pressure 162.56 cm 70.31 kg 26.6 kg/m2 158/71 mm[Hg] 12/02/2018 11:15AM New Patient 47 Height Weight BMI Blood Pressure 162.56 cm 66.04 kg 25 kg/m2 124/73 mm[Hg]
[2020-12-25 10:46] LABS: Bilirubin Negative (Negative); Clarity Cloudy (Clear); Urobilinogen 0.2 EU/dL (Up TO 0.2)
[2020-12-25 10:50] LABS: C & S Indicated? Yes; RBC >50 HPF (0-2)
--- NOTE | 2020-12-25 11:00 | DI.CT_ITS ---
EXAM: CT RENAL COLIC WO CLINICAL HISTORY: hematuria. TECHNIQUE: Imaging Protocol: Axial computed tomography images with coronal and sagittal reformatted images were created and reviewed CONTRAST MATERIAL: Intravenous: none Oral: None COMPARISON: CT CHEST FOR PULMONARY EMBOLUS from 03/25/2018 FINDINGS: VISUALIZED LUNG BASES: No nodules nor pleural effusions evident. ABDOMEN: There is no ascites. LIVER: There are no obvious focal hepatic lesions evident of this noninfused study. GALLBLADDER/BILIARY: The gallbladder surgically absent. CBD diameter is consistent with the patient' s advanced age and post cholecystectomy status. PANCREAS: No evidence of pancreatic mass nor dilatation of the pancreatic duct. SPLEEN: Spleen is not enlarged. No obvious intrasplenic lesions. ADRENALS: There are no significant adrenal masses. KIDNEYS:Small hypodensity in the lateral cortex of the right kidney measuring approximately 7 x 8 mil limeters is noted, difficult to characterize accurately without IV contrast. May represent small cys t or other pathology. No other focal renal findings. No solid renal masses. No calculi nor hydronep hrosis. . ABDOMINAL AORTA: Abdominal aorta is not enlarged and there is no vtemhqdcjdjrhit-uucj-umhzqh adenopat hy. ABDOMINAL WALL/GI: No evidence of significant anterior abdominal wall hernia. No bowel obstruction. PELVIS: LYMPH NODES: There is no intrapelvic nor inguinal adenopathy. GI: No evidence of appendicitis.No evidence of sigmoid diverticulitis. URINARY BLADDER: There is uniform thickening of the urinary bladder wall. No obvious distinct mass n or radiopaque calculi therein. REPRODUCTIVE: Uterus size upper normal. No abnormal adnexal masses. OSSEOUS: No significant osseous lesions. IMPRESSION: 1. There are no renal calculi nor dilatation of the collecting systems on either side. 2. There is uniform thickening of the urinary bladder wall, possibly significant 3. The gallbladder surgically absent. No significant dilatation of the biliary tree. Small 8 millimeter hypodensity in the lateral cortex of the right kidney, difficult to evaluate witho ut IV contrast. Possibly small cyst versus other pathology. Recommend follow-up ultrasound. RADIATION DOSE DELIVERED: 808.33mGy.cm Total DLP DATA REPOSITORY: All CT scans at this facility are submitted to the National Radiology Data Registry (NRDR) Dose Index Registry (DIR) with the [employer] (A[employer]). RADIATION OPTIMIZATION: All CT scans at this facility use at least one of these dose optimization te chniques: automated exposure control; mA and/or kV adjustment per patient size (includes targeted exa ms where dose is matched to clinical indication); or iterative reconstruction.
--- NOTE | 2020-12-25 11:04 | ED.GENADUL_ITS ---
Discharge Plan Disposition Patient Disposition: HOME Condition: Stable Discharge Details Clinical Impression: Cystitis Primary Care Provider: Tatum Castano ED Provider: Carolyn Meléndez Home Meds and New Rx's Prescriptions: Continued Eliquis 5 mg tablet 5 mg PO BID 30 Days Qty: 180 RF: 4 multivitamin 1 EACH tablet 1 ea PO DAILY RF: 0 Cosamin ASU 1 EACH capsule 1 ea PO DAILY RF: 0 cholecalciferol (vitamin D3) [Vitamin D3] 2,000 UNIT capsule 1,000 unit PO DAILY RF: 0 famotidine 40 mg tablet 40 mg PO DAILY Qty: 90 RF: 1 hydroxyzine HCl 10 mg tablet 10 mg PO DAILY Qty: 90 RF: 4 simvastatin [Zocor] 20 mg tablet 20 mg PO HS Qty: 90 RF: 4 carbidopa-levodopa 10-100 mg tablet 1 tab PO QHS Qty: 90 RF: 3 bisoprolol fumarate 5 mg tablet 5 mg PO BID Qty: 180 RF: 3 Discharge Instructions Instructions: Interstitial Cystitis (ED) Additional Instructions: Please return to the emergency department with any new or worsening concerning symptoms specifically development of fever, decreased urinary output or development of kidney pain. Otherwise please make sure you follow-up with urologist whose contact information has been provided. Referrals: Victor M Alegria MD [ [facility] STAFF PHYSICIAN] - 1 week (Follow up for hematuria. Please call first thing on Sunday to arrange apt. time and date) Discharge Data Discharge Date/Time-TO BE ENTERED AT DEPARTURE: 12/25/20 12:58 Medical Decision Making <JUSTIN Elena - Last Filed: 12/25/20 16:35> Leeann is a 72-year-old female who presents with 2 days worth of dysuria which she describes as spasm-like discomfort at the urethra with urination. She was having some slight blood-tinged urine with wiping however today has had bright red blood with wiping. She is concerned because she is on Eliquis for A. fib. She has not had history of UTIs throughout her adult life and no history of pyelonephritis. Last July she had an episode which was slightly similar to this lasted 2 days and upon awakening she felt like she noticed something that could be related to a kidney stone. She had never had previous history of kidney stones and did not pursue further work-up for this if symptoms had completely resolved. Prior abdominal surgeries consistent with appendectomy. She still gets regular gynecologic exams once a year which have been normal. She has been without fevers or chills. No nausea or vomiting. Reports normal bowel. Has had increased urgency and frequency from urination from her baseline as well as hematuria. She denies abdominal pain or back pain. She otherwise feels well. She has been treating with water and cranberry juice. Differential diagnosis includes but not limited to UTI, cystitis, pyelonephritis, renal colic. Considered possibility that bleeding could be related to dysfunctional uterine bleeding, hemorrhoids. However physical exam is reassuring for these. CT returns showing signs of cystitis but no signs of pyelonephritis or nephr olithiasis. This is reviewed with the patient. Given improvement with antibiotics previously we will initiate such today. She will be started on Keflex. CBC with mild leukocytosis of 12 with mild neutrophil elevation. BMP with mildly elevated glucose and appropriate kidney function. Urinalysis does show greater than 50 RBCs, trace leukocytes but no white blood cells under microscopy no bacteria. I have discussed with her these results and that if she develops worsening concerning symptoms, fever, worsening pain, decreased urinary output or inability to urinate she will return here. Otherwise she will follow up with urologist Dr. Alegria and understands she needs to call first thing on Sunday morning to schedule follow-up appointment time and date. All of the patient's questions were answered and she felt comfortable with the care plan discussed. <Mk Giordano MD - Last Filed: 01/09/21 14:22> Patient seen, examined, and discussed with JUSTIN Meléndez. I agree with treatment plan as discussed/documented. A medical screening exam was performed. CT to assess for acute surgical pathology. Consider infectious etiology. Plan to cover with antibiotic. Plan for outpatient follow-up with urology. HPI <JUSTIN Elena - Last Filed: 12/25/20 16:35> Leeann is a 80-year-old female who presents with slight discomfort with urination which she describes as spasm-like pain at the urethra and bright red blood with wiping. Reports she is on Eliquis for A. fib. Denies history of UTI, kidney stone or pyelonephritis. General Date/Time Provider Initiated Documentation: 12/25/20 10:21 . Related Data Home Medications Medication Instructions Recorded Confirmed multivitamin 1 ea PO DAILY 01/20/13 01/06/21 Cosamin ASU 1 ea PO DAILY tab-cap 01/09/14 01/06/21 cholecalciferol (vitamin D3) 1,000 unit PO DAILY 01/13/15 01/06/21 [Vitamin D3] famotidine 40 mg tablet 40 mg PO DAILY #90 tab 02/03/20 01/06/21 hydroxyzine HCl 10 mg tablet 10 mg PO DAILY #90 tab 03/17/20 01/06/21 simvastatin 20 mg tablet 20 mg PO HS #90 tab-cap 06/16/20 01/06/21 carbidopa 10 mg-levodopa 100 mg 1 tab PO QHS #90 tab 07/04/20 01/06/21 tablet apixaban 5 mg tablet 5 mg PO BID 30 Days #180 tab 07/14/20 01/06/21 bisoprolol fumarate 5 mg tablet 5 mg PO BID #180 tab 07/27/20 01/06/21 Previous Rx's Medication Instructions Recorded famotidine 40 mg tablet 40 mg PO DAILY #90 tab 02/03/20 hydroxyzine HCl 10 mg tablet 10 mg PO DAILY #90 tab 03/17/20 simvastatin 20 mg tablet 20 mg PO HS #90 tab-cap 06/16/20 carbidopa 10 mg-levodopa 100 mg 1 tab PO QHS #90 tab 07/04/20 tablet apixaban 5 mg tablet 5 mg PO BID 30 Days #180 tab 07/14/20 bisoprolol fumarate 5 mg tablet 5 mg PO BID #180 tab 07/27/20 Allergies Allergy/AdvReac Type Severity Reaction Status Date / Time codeine AdvReac ITCHY NOSE Verified 01/06/21 13:53 General Stated Complaint: [employer] HELPER MARIA L: 3 <Mk Giordano MD - Last Filed: 01/09/21 14:22> Leeann is a 80-year-old female who presents with slight discomfort with urination which she describes as spasm-like pain at the urethra and bright red blood with wiping. Reports she is on Eliquis for A. fib. Denies history of UTI, kidney stone or pyelonephritis. Review of Systems <JUSTIN Elena - Last Filed: 12/25/20 16:35> All systems reviewed & are unremarkable except as noted in HPI and below PFSH <JUSTIN Elena - Last Filed: 12/25/20 16:35> Medical History Atrial tachycardia Gross hematuria Hyperlipidemia Takes Zocor. Hyperplastic colon polyp most recent colonoscopy: Nl. 10yr f/u. Hyperthyroidism Left shoulder tendonitis Obstructive sleep apnea syndrome in adult Osteoarthritis of left knee PAC (premature atrial contraction) Paroxysmal atrial fibrillation Dx 2018. On chronic anticoagulation POLST (Physician Orders for Life-Sustaining Treatment) Restless legs syndrome (RLS) Snoring Surgical History (Updated 01/06/21 @ 13:51 by Tho Mendoza) Appendectomy (~1956) Arthroplasty of knee (11/26/15) LEFT KNEE/ Cholecystectomy Colonoscopy - MAC (~02/2015) 2018. No polyos Meniscectomy (~2009) Family History Mother , SUICIDE at age 47. Depression Father , AGE 34 No problems noted. Sister , AGE 72 RA (rheumatoid arthritis) Brain aneurysm Hyperlipidemia Stroke Hypertension Daughter No problems noted. Social History Smoking/Tobacco Use Status: Former Tobacco Use Quit Date: 11/12/83 Second Hand Exposure: Yes Smoking risk assessment performed?: Yes Alcohol Intake: former Details: no alcohol at all in August 2018 Drug use: Never Substance use type: does not use Caregiver/Support person: No Household members: spouse and other Details: -[facility] Housing: house Number of Children: 1 Communication Needs: None current occupation: Retired. Volunteers at [employer] Pets and animals: Yes Pets and animals: cat(s) Sexually active: Yes Do you think of yourself as: straight/heterosexual Current gender identity: female What is your relationship status?: How often do you talk on the phone with friends or family?: three or more times per week How often do you get together with friends or relatives?: three or more times per week How often do you attend quaker or sabianism services?: 1-3 times per year Do you belong to any clubs or organized social groups?: yes Panel score (0-1 are the most socially isolated patients): 3 What type of physical activity do you participate in: independent ambulation Duration: decline to answer Frequency: decline to answer Theodora/Baptist: Zoroastrianism Special theodora needs: No Seatbelt use: always Helmet use: No Drive intox or ride w/intox production truck driver: No Do you feel safe at home: Yes Do you feel safe in your relationship?: Yes Exam <JUSTIN Elena - Last Filed: 12/25/20 16:35> Narrative Exam Narrative: CONSTITUTIONAL: Afebrile, well-appearing elderly female, lying in stretcher, in no acute distress. SKIN: [place], warm and moist. No diaphoresis, pallor, cyanosis, icterus or edema. No lesions, hives, petechiae or ecchymoses. EYES: Pupils equal and round. EOMI voluntarily. Conjunctivae clear w/o erythema or injection. Sclera white. HENT: Head normocephalic, atraumatic. NECK: Trachea midline. Neck supple with full range of motion. No nuchal rigidity. RESPIRATORY: CTAB. No wheezes, rhonchi or rales. Breathing non-labored. CARDIOVASCULAR: RRR without murmur, rubs or gallops. S1/ S2 present. GI: BSP. Abdomen soft, nondistended, non-tender. No palpable masses or HSM. No rebound, guarding or rigidity. : No CVA tenderness bilaterally. Pelvic exam is unremarkable. External genitalia without erythema or inflammation. Internal mucosa appears normal cervical os is closed and there is no signs of active bleeding or abnormal discharge. No discomfort to bilateral adnexa. No signs of external hemorrhoids. MUSCULOSKELETAL: Extremities appear atraumatic with no obvious deformities, cyanosis, clubbing, or edema and with FROM. NEURO: Cranial nerves II-XII grossly intact. No significant motor or sensory deficits appreciated in the upper or lower extremities. No obvious ataxia PSYCH: Appropriate mood and affect. Course <JUSTIN Elena - Last Filed: 12/25/20 16:35> Vital Signs Vital signs: Vital Signs Temperature 97.2 F L 12/25/20 10:10 Pulse 79 12/25/20 10:10 Respiratory Rate 18 12/25/20 10:10 Blood Pressure 160/75 H 12/25/20 10:10 Pulse Oximetry 98 12/25/20 10:10 Temperature 97.2 F L 12/25/20 10:10 Temperature Source Temporal Artery Scan 12/25/20 10:10 Pulse 79 12/25/20 10:10 Respiratory Rate 18 12/25/20 10:10 Respiratory Effort Non-Labored 12/25/20 10:17 Blood Pressure 160/75 H 12/25/20 10:10 Blood Pressure Position Sitting 12/25/20 10:10 Pulse Oximetry 98 12/25/20 10:10 Oxygen Delivery Method Room Air 12/25/20 10:10 Oxygen Flow Rate 0 12/25/20 10:10 Pain Level 2 12/25/20 10:10 Lab/Test Results Lab/Test Results: 12/25/20 10:28 Urine - Reflex from Ua Urine Culture - Pending Laboratory Tests Range/Units 12/25/20 10:28 Urine Color (Yellow) Brown Urine Clarity (Clear) Cloudy Urine pH (5-8) 5.5 Ur Specific Cosmos (1.005-1.025) >= 1.030 H Urine Protein (Negative) mg/dL >=300 H Urine Ketones (Negative) mg/dL Negative Urine Blood (Negative) Large H Urine Nitrite (Negative) Negative Urine Bilirubin (Negative) Negative Urine Urobilinogen (Up TO 0.2) EU/dL 0.2 Ur Leukocyte Esterase (Negative) Trace H Urine RBC (0-2) HPF >50 H Urine WBC Not Applicable Ur Epithelial Cells Not Applicable Urine Crystals Not Applicable Urine Bacteria Not Applicable Urine Mucus Not Applicable Ur Culture Indicated? Yes Urine Glucose (Negative) mg/dL Negative
[2020-12-25 11:28] LABS: Abs Immature Grans 0.03 10^3/uL (0.0-0.06); Absolute Monocyte Count 0.67 10^3/uL (0.1-0.8); Basophils % 0.2; Eosinophils % 0.7; HGB 13.8 g/dL (11.2-15.7); Immature Grans % 0.2; Lymphocytes % 10.8; MCH 30.8 pg (27.0-33.0); MCHC 32.9 % (32.0-36.0); MCV 93.8 fL (80-95); MPV 9.6 fL (8.0-11.0); Monocytes % 5.6; Neutrophils % 82.5; Nucleated RBC 0 %; Platelet Count 231 10^3/uL (130-400); RBC 4.48 10^6/uL (3.93-5.22); RDW 11.6 % (11.7-14.6); RDW-SD 39.8 fL; WBC 12.01 10^3/uL (4.4-10.8)
[2020-12-25 11:30] LABS: Absolute Basophil Count 0.02 10^3/uL (0.0-0.2); Absolute Eosinophil Count 0.08 10^3/uL (0.0-0.7); Absolute Neutrophil Count 9.91 10^3/uL (1.2-6.7)
[2020-12-25 11:37] LABS: Anion Gap 7.8 mmol/L (3-11); BUN 9 mg/dL (7-18); CO2 28.2 mmol/L (21.0-32.0); Calcium 9.5 mg/dL (8.5-10.1); Chloride 105 mmol/L (98-107); Estimated GFR 53.62 (mL/min/1.73m2); Glucose 110 mg/dL (74-106); Sodium 141 mmol/L (136-145)
--- NOTE | 2020-12-25 12:27 | DI.VRAD_ITS ---
PROCEDURE INFORMATION: Exam: CT Abdomen And Pelvis Without Contrast Exam date and time: 12/25/2020 11:04 AM Age: 80 years old Clinical indication: Other: Hematuria TECHNIQUE: Imaging protocol: Computed tomography of the abdomen and pelvis without contrast. COMPARISON: SD US RENAL 08/02/2020 10:41 AM FINDINGS: Liver: Normal. No mass. Gallbladder and bile ducts: Prior cholecystectomy. Pancreas: Normal. No ductal dilation. Spleen: Normal. No splenomegaly. Adrenal glands: Normal. No mass. Kidneys and ureters: No nephrolithiasis bilaterally. No hydronephrosis. Stomach and bowel: Unremarkable. No obstruction. No mucosal thickening. Appendix: No evidence of appendicitis. Intraperitoneal space: Unremarkable. No free air. No significant fluid collection. Vasculature: Unremarkable. No abdominal aortic aneurysm. Lymph nodes: Unremarkable. No enlarged lymph nodes. Urinary bladder: No urinary bladder calculi. Urinary bladder wall appears mildly and diffusely thickened. Reproductive: Uterus is midline. No adnexal mass. Bones/joints: Advanced disc degeneration at L2-L3 and L5-S1. Soft tissues: Unremarkable. IMPRESSION: 1. No nephrolithiasis bilaterally. 2. No urinary bladder calculi. Mild diffuse thickening of the urinary bladder wall. Dictated and Authenticated by: Cleve Murray MD. Ordering:TORI Leon MD
--- NOTE | 2020-12-25 14:38 | NUR.NOTE ---
REFERRAL FAXED TO UROLOGY DR THAKKAR FOR HEMATURIA.Nursing Note:
== END 2020-12-25 12:58 | disposition home or self-care (01) ==
PROVIDERS: Emergency Provider Physician Assistant Medical; PCP Family Medicine
DX: N30.10 Interstitial cystitis (chronic) without hematuria (principal); B96.89 Other specified bacterial agents as the cause of diseases classified elsewhere
CPT/HCPCS: 80048; 99283; 74176; 81003; 81015; 85025; 87086; 99282

== ENCOUNTER → 2020-12-29 14:07 | Outpatient (BNVA) | payer MEDICARE, SELFPAY | PROVIDERS: PCP Family Medicine; Referring Provider Family Medicine; Visit Provider Nurse Practitioner Gerontology | DX: R31.0 Gross hematuria (principal) | CPT/HCPCS: 99215 ==

== ENCOUNTER 2021-01-10 07:48 | Day surgery (SDC) | payer MEDICARE, SELFPAY ==
[2021-01-10 08:03] VITALS: BP 128/71; PULSE 61; RESP 16; TEMP 36.7; O2SAT 95
--- NOTE | 2021-01-10 08:09 | HPE_ITS ---
Date of service: 01/10/21 Time of Service: 08:10 Assessment and Plan Assessment and plan (1) Gross hematuria: Status: Acute Assessment and plan: For cystoscopy with bilateral retrograde pyelogram to complete her hematuria workup. We will be prepared to do a TURBT or ureteroscopy should any pathology be identified. History of Present Illness History of Present Illness Chief Complaint: Gross hematuria Narrative: This is a 80-year-old woman who has a history of intermittent gross hematuria. She has been evaluated with urine cultures which have shown no bacterial infection. She had a noncontrast CT scan which did not show any sign of renal or ureteral stones. She presents for cystoscopy with bilateral retrograde pyelograms to complete her hematuria work-up. She has no flank pain. She does have some urethral discomfort and blood when she wipes after she voids. She is anticoagulated for atrial fibrillation. She is not a smoker. Review of Systems Narrative: No fevers or chills Wears glasses. No dysphasia Hx hypothyroidism. No diabetes No shortness of breath, cough or hemoptysis Atrial fibrillation. No chest pain No nausea, vomiting, hepatitis, ulcers, jaundice, diarrhea or constipation No seizures, strokes or peripheral neuropathy No anemia. Bleeds/bruises easily No gout PFSH Medical History Atrial tachycardia Gross hematuria Hyperlipidemia Takes Zocor. Hyperplastic colon polyp most recent colonoscopy: Nl. 10yr f/u. Hyperthyroidism Left shoulder tendonitis Obstructive sleep apnea syndrome in adult Osteoarthritis of left knee PAC (premature atrial contraction) Paroxysmal atrial fibrillation Dx 2018. On chronic anticoagulation POLST (Physician Orders for Life-Sustaining Treatment) Restless legs syndrome (RLS) Snoring Surgical History (Updated 01/10/21 @ 08:00 by Ale Jurado) Appendectomy (~1956) Arthroplasty of knee (11/26/15) LEFT KNEE/ 01/10/21: Pt denies this. -BR Cholecystectomy Colonoscopy - MAC (~02/2015) 2018. No polyos Meniscectomy (~2009) Pt unsure if just on right knee, or right and left knee. -BR Family History Mother , SUICIDE at age 47. Depression Father , AGE 34 No problems noted. Sister , AGE 72 RA (rheumatoid arthritis) Brain aneurysm Hyperlipidemia Stroke Hypertension Daughter No problems noted. Social History Smoking/Tobacco Use Status: Former Tobacco Use Quit Date: 11/12/83 Second Hand Exposure: Yes Smoking risk assessment performed?: Yes Alcohol Intake: former Details: no alcohol at all in August 2018 Drug use: Never Substance use type: does not use Caregiver/Support person: No Household members: spouse and other Details: -[place] Housing: house Number of Children: 1 Communication Needs: None current occupation: Retired. Volunteers at [employer] H Pets and animals: Yes Pets and animals: cat(s) Sexually active: Yes Do you think of yourself as: straight/heterosexual Current gender identity: female What is your relationship status?: How often do you talk on the phone with friends or family?: three or more times per week How often do you get together with friends or relatives?: three or more times per week How often do you attend scientologist or religion services?: 1-3 times per year Do you belong to any clubs or organized social groups?: yes Panel score (0-1 are the most socially isolated patients): 3 What type of physical activity do you participate in: independent ambulation Duration: decline to answer Frequency: decline to answer Theodora/Yazidi: Sikh Special theodora needs: No Seatbelt use: always Helmet use: No Drive intox or ride w/intox tour driver: No Do you feel safe at home: Yes Do you feel safe in your relationship?: Yes Meds Home Medications and Allergies Allergies Allergy/AdvReac Type Severity Reaction Status Date / Time codeine AdvReac ITCHY NOSE Verified 01/10/21 07:58 Home Medications Medication Instructions Recorded Confirmed Type multivitamin 1 ea PO DAILY 01/20/13 01/10/21 History Cosamin ASU 1 ea PO DAILY tab-cap 01/09/14 01/10/21 History cholecalciferol (vitamin D3) 1,000 unit PO DAILY 01/13/15 01/10/21 History [Vitamin D3] famotidine 40 mg tablet 40 mg PO DAILY #90 tab 02/03/20 01/10/21 Rx hydroxyzine HCl 10 mg tablet 10 mg PO DAILY #90 tab 03/17/20 01/10/21 Rx simvastatin 20 mg tablet 20 mg PO HS #90 tab-cap 06/16/20 01/10/21 Rx carbidopa 10 mg-levodopa 100 mg 1 tab PO QHS #90 tab 07/04/20 01/10/21 Rx tablet apixaban 5 mg tablet 5 mg PO BID 30 Days #180 tab 07/14/20 01/10/21 Rx bisoprolol fumarate 5 mg tablet 5 mg PO BID #180 tab 07/27/20 01/10/21 Rx Exam Const General: cooperative Neck Neck: supple Resp Effort & Inspection: normal respiratory effort Auscultation: clear to auscultation bilaterally Cardio Rate: regular rate Rhythm: regular rhythm Neuro General: patient alert and patient awake COVID-19 Screening Have you, or household traveled for leisure in last 14 days?: No Had IN PERSON contact w/suspected or confirmed C-19 person: No
[2021-01-10] MEDS: Lactated Ringers 1,000 ML 80 ML IV (08:25)
[2021-01-10] MEDS: ceFAZolin 1 GM/50 ML BAG IVPB (08:53)
[2021-01-10] MEDS: Lidocaine 2% Jelly 6 ML SYR (09:04)
[2021-01-10] MEDS: Omnipaque 300 MG/ML 50 ML BTL (09:06)
--- NOTE | 2021-01-10 09:15 | W.PM.DSUDISC ---
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 Attending Provider: Victor M Alegria Primary Care Provider: Tatum Castano Home Meds and New Rx's Prescriptions: No Action Eliquis 5 mg tablet 5 mg PO BID 30 Days Qty: 180 RF: 4 multivitamin 1 EACH tablet 1 ea PO DAILY RF: 0 Cosamin ASU 1 EACH capsule 1 ea PO DAILY RF: 0 cholecalciferol (vitamin D3) [Vitamin D3] 2,000 UNIT capsule 1,000 unit PO DAILY RF: 0 famotidine 40 mg tablet 40 mg PO DAILY Qty: 90 RF: 1 hydroxyzine HCl 10 mg tablet 10 mg PO DAILY Qty: 90 RF: 4 simvastatin [Zocor] 20 mg tablet 20 mg PO HS Qty: 90 RF: 4 carbidopa-levodopa 10-100 mg tablet 1 tab PO QHS Qty: 90 RF: 3 bisoprolol fumarate 5 mg tablet 5 mg PO BID Qty: 180 RF: 3 Discharge Instructions Additional Instructions: followup 2 to 4 weeks Activity:: Activity as Tolerated Shower/Bathe:: 24 hours Diet:: As Tolerated Discharge Orders Discharge Orders: Discharge Order (Routine); Ordered 01/10/21 Ordered By: Victor M Alegria DS: Diagnosis Discharge Diagnosis (1) Gross hematuria: Status: Acute
--- NOTE | 2021-01-10 09:17 | DI.RAD_ITS ---
EXAM: XR RETROGRADE IN OR CLINICAL HISTORY: Gross hematuria TECHNIQUE: 2D and realtime digital imaging was performed. CONTRAST MATERIAL: Refer to procedure report. COMPARISON: No exams were available for comparison FINDINGS: Fluoroscopy was provided for Dr. Alegria during the performance of a retrograde evaluation of the rolan l collecting system. Please refer to the procedure report for complete details. Fluoro time: 21 seconds IMPRESSION: RADIATION DOSE DELIVERED:
--- NOTE | 2021-01-10 09:18 | ROE_ITS ---
Date of service: 01/10/21 Time of Service: 09:18 Operative Note Operative Note DATE OF PROCEDURE: 01/10/21 PRE-OP DIAGNOSIS: Gross hematuria POST-OP DIAGNOSIS: same Urethral caruncle PROCEDURE: cystoscopy with bilateral retrograde pyelogram SURGEON: Victor M Alegria ANESTHESIA TYPE: General:No Airway Refer to Anesthesia Record ESTIMATED BLOOD LOSS: 10 PATHOLOGY: none sent COMPLICATIONS: None Patient was transported to: same day Patient's condition: stable Implants: none Indications: This is a 80-year-old woman who is chronically anticoagulated for atrial fibrillation. She has had multiple occurrences of gross hematuria. She will occasionally have some lower urinary tract discomfort with a hematuria. At other times, she has no additional symptoms. She has been evaluated with a noncontrast CT scan. She presents for cystoscopy with retrograde pyelograms to complete her hematuria work-up. Findings: Urethral caruncle Procedure Description: The patient was brought to the operating room on 01/10/2021. She was given preoperative antibiotics. After successful induction of general anesthesia without intubation, she was placed in the dorsal lithotomy position. Her genitalia was prepped and draped. 2% Xylocaine jelly was instilled into the urethra to act as a local anesthetic. A pelvic exam revealed a dark flesh colored smooth mass on the under side of the urethral meatus. 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 A 22 Romanian rigid cystoscope was then passed through the urethra into the bladder. The bladder was inspected with the 30 degree lens. Both ureteral orifice ease appeared normal in position and location. No blood was seen coming from either side. Each orifice was cannulated with a 6 Romanian access catheter. Retrograde films were obtained by injecting Omnipaque through the access catheter under fluoroscopic guidance. Both ureters and collecting systems appeared normal with no filling defects. Both sides drained promptly on a 5-minute drainage film. The remainder the bladder was then inspected using both a 30 and a 70 degree lens. There were no papillary or nodular lesions. No stones were seen. Based on today's examination, the most likely source of her blood is from the urethral carbuncle. We will treat her with localized hormone replacement therapy and follow-up with her in a few weeks.
--- NOTE | 2021-01-10 09:50 | W.PM.DSUDISC ---
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 Attending Provider: Victor M Alegria Primary Care Provider: Tatum Castano Home Meds and New Rx's Prescriptions: New estradiol [Estrace] 0.01 % (0.1 mg/gram) cream 2 g vaginal .twice weekly Qty: 42.5 RF: 1 No Action Eliquis 5 mg tablet 5 mg PO BID 30 Days Qty: 180 RF: 4 multivitamin 1 EACH tablet 1 ea PO DAILY RF: 0 Cosamin ASU 1 EACH capsule 1 ea PO DAILY RF: 0 cholecalciferol (vitamin D3) [Vitamin D3] 2,000 UNIT capsule 1,000 unit PO DAILY RF: 0 famotidine 40 mg tablet 40 mg PO DAILY Qty: 90 RF: 1 hydroxyzine HCl 10 mg tablet 10 mg PO DAILY Qty: 90 RF: 4 simvastatin [Zocor] 20 mg tablet 20 mg PO HS Qty: 90 RF: 4 carbidopa-levodopa 10-100 mg tablet 1 tab PO QHS Qty: 90 RF: 3 bisoprolol fumarate 5 mg tablet 5 mg PO BID Qty: 180 RF: 3 Discharge Instructions Additional Instructions: apply fingertip of Estrace cream vaginally twice weekly OK to restart Eliquis followup 2 to 4 weeks Activity:: Activity as Tolerated Shower/Bathe:: 24 hours Diet:: As Tolerated Discharge Orders Discharge Orders: Discharge Order (Routine); Ordered 01/10/21 Ordered By: Victor M Alegria DS: Diagnosis Discharge Diagnosis (1) Gross hematuria: Status: Acute
[2021-01-10 10:22] VITALS: BP 128/61; PULSE 56; RESP 16; TEMP 36.1; O2SAT 97
[2021-01-10] MEDS: Phenazopyridine 200 MG TAB PO (10:28)
== END 2021-01-10 11:00 | disposition home or self-care (01) ==
PROVIDERS: PCP Family Medicine; Visit Provider Urology
PROC: (CPT 52005; principal; 2021-01-10 08:30)
DX: R31.0 Gross hematuria (principal); N36.2 Urethral caruncle; E78.5 Hyperlipidemia, unspecified; I48.0 Paroxysmal atrial fibrillation; G47.33 Obstructive sleep apnea (adult) (pediatric)
CPT/HCPCS: 52005; NC; 74420; J0131; J0690; J1100; J1885; J2001; J2405; Q9967

== ENCOUNTER → 2021-01-25 15:38 | Outpatient (BNVA) | payer MEDICARE, SELFPAY | PROVIDERS: PCP Family Medicine; Referring Provider Family Medicine; Visit Provider Urology | DX: R31.0 Gross hematuria (principal); N36.2 Urethral caruncle; Z79.899 Other long term (current) drug therapy | CPT/HCPCS: 99213 ==

== ENCOUNTER → 2021-07-26 08:30 | Outpatient (BNVA) | payer MEDICARE, SELFPAY | PROVIDERS: PCP Family Medicine; Referring Provider Family Medicine; Visit Provider Urology | DX: N36.2 Urethral caruncle (principal) | CPT/HCPCS: 99213 ==

== ENCOUNTER 2021-08-12 02:30 | Outpatient (CLI) | payer MEDICARE, SELFPAY ==
--- NOTE | 2021-08-12 14:30 | DI.MAMMO_ITS ---
Exam(s) MAMMO SCREENING EXAM: MAMMO SCREENING CLINICAL HISTORY: screening TECHNIQUE: Bilateral full field digital CC and MLO mammographic images were obtained with 3D tomosyn thesis and utilizing computer aided detection (CAD). COMPARISON: Available for comparison. FINDINGS: Masses/Architectural Distortion: None seen. Microcalcifications: No suspicious pleomorphic-type are seen. Skin Thickening/Nipple Retraction: None. IMPRESSION: 1. No significant interval change with no specific features of malignancy noted. 2. Unless there is more urgent need, screening mammography is recommended, as per [employer] guidelines. BI-RADS Category 1 - Negative Breast Density - Category C - Heterogeneously dense Breast density category C or D implies that the patient has dense breast tissue. Dense breast tissue is very common and is not abnormal but dense breast tissue can make it harder to find cancer on a ma mmogram. Also, dense breast tissue may increase their breast cancer risk. This information about the result of the mammogram report was provided to the patient to raise their awareness. Use this report when you speak with the patient about their risks for breast cancer, which includes their family hist ory. At that time, you may recommend for more screening tests (Ultrasound or MRI) as they might be us eful based on their risk. A negative radiographic report should not delay biopsy if a dominant or clinically suspicious mass is present. Up to ten percent of cancers are not identified on mammography. A negative report may reinforce clinical impression. Adenosis and dense breasts may obscure an underlying neoplasm. False positive reports average 6 to 10%. Patient will receive a letter notifying them of these results.
== END 2021-08-12 02:50 ==
PROVIDERS: PCP Family Medicine; Visit Provider Obstetrics & Gynecology Gynecology
DX: Z12.31 Encounter for screening mammogram for malignant neoplasm of breast (principal)
CPT/HCPCS: 77063; 77067

== ENCOUNTER 2022-03-14 11:55 | Outpatient (CLI) | payer MEDICARE, SELFPAY ==
--- NOTE | 2022-03-14 10:30 | DI.RAD_ITS ---
Exam(s) XR SHOULDER LT COMPLETE 2+V EXAM: XR SHOULDER LT COMPLETE 2+V CLINICAL HISTORY: LEFT SHOULDER PAIN. TECHNIQUE: 2D digital imaging was performed. COMPARISON: CR XR SHOULDER RT COMPLETE 2+V from 03/14/2022 FINDINGS: Two views No evidence of fracture or dislocation. There is no glenohumeral joint space narrowing but there are degenerative subarticular cysts in inferior articular surface of the osseous glenoid and humeral hea d, without osteophytes at these levels. Nevertheless, represents some degenerative change. There is also small degenerative subarticular cysts in the greater tuberosity. The subacromial space is not diminished. There are mild-moderate degenerative changes in the ipsilateral acromioclavicular joint. No lytic osseous lesions. IMPRESSION: DATA REPOSITORY: RADIATION DOSE DELIVERED:
--- NOTE | 2022-03-14 10:30 | DI.RAD_ITS ---
Exam(s) XR SHOULDER RT COMPLETE 2+V EXAM: XR SHOULDER RT COMPLETE 2+V CLINICAL HISTORY: RIGHT SHOULDER PAIN. TECHNIQUE: 2D digital imaging was performed. COMPARISON: CT CHEST FOR PULMONARY EMBOLUS from 03/25/2018 CR XRAY SHOULDER LEFT MIN 2 VIEW from 05/23/2018 FINDINGS: Two views No evidence of fracture. There is moderate inferior subluxation of the humeral head in the osseous g lenoid. No joint space narrowing. No calcification in the subacromial space (which is not diminishe d). Mild degenerative changes in the AC joint There is a sclerotic intramedullary bone lesion in the surgical neck region of the humerus. 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 This is most probably a benign lesion and was brittany dent on a CT chest study performed March 2018. IMPRESSION: DATA REPOSITORY: RADIATION DOSE DELIVERED:
== END 2022-03-14 11:56 | disposition home or self-care (01) ==
LOC: DIORS 11:56
PROVIDERS: PCP Family Medicine; Referring Provider Family Medicine; Visit Provider Student in an Organized Health Care Education/Training Program
DX: M89.8X1 Other specified disorders of bone, shoulder; M19.012 Primary osteoarthritis, left shoulder; M65.351 Trigger finger, right little finger; M65.321 Trigger finger, right index finger; M25.511 Pain in right shoulder; M25.512 Pain in left shoulder
CPT/HCPCS: 99204; 99215; 73030

== ENCOUNTER 2022-03-15 01:33 | Outpatient (CLI) | payer MEDICARE, SELFPAY ==
--- OUTSIDE RECORDS SUMMARY | 2022-03-15 01:34 | XMS_ITS ---
:1940 Author Care Team Providers Name Role Phone BARON LINDSEY MD Primary Care Provider [phone] AARON GODINEZ MD Referring Provider [phone] Allergies Code Code System Name Reaction Severity [...] Active ? N ot available eye ointment [id number] Active ? N ot available 1 tab [...] ? 12/02/2018 Ferritin, S - Ferr [phone] Final [facility] Country Serum or NG/mL NG/mL Hospital [...]
[2022-03-15 09:32] LABS: Hemoglobin A1C 6.1 % (<5.7)
[2022-03-15 10:25] LABS: ALT 23 U/L (14-59); Anion Gap 5.1 mmol/L (3-11); BUN 12 mg/dL (7-18); CO2 30.9 mmol/L (21.0-32.0); Calcium 8.8 mg/dL (8.5-10.1); Chloride 105 mmol/L (98-107); Estimated GFR 53.48 (mL/min/1.73m2); Glucose 93 mg/dL (74-106); Potassium 4.4 mmol/L (3.5-5.1); Sodium 141 mmol/L (136-145); TSH (W/Ref FT4) 3.46 uIU/mL (0.36-3.74)
[2022-03-15 17:51] LABS: Lab Add On Test DONE
[2022-03-15 18:36] LABS: Calculated LDL 92 mg/dL (<100); Cholesterol 158 mg/dL (<200); HDL Cholesterol 49 mg/dL (40-60); Triglyceride 87 mg/dL (<150)
== END 2022-03-15 01:34 | disposition home or self-care (01) ==
LOC: LBO 01:33
PROVIDERS: PCP Family Medicine; Visit Provider Family Medicine
DX: E05.90 Thyrotoxicosis, unspecified without thyrotoxic crisis or storm (principal); E78.5 Hyperlipidemia, unspecified; I48.0 Paroxysmal atrial fibrillation; R73.9 Hyperglycemia, unspecified
CPT/HCPCS: 36415; 80048; 80061; 83036; 84443; 84460

== ENCOUNTER → 2022-06-07 11:13 | Outpatient (CLI) | payer MEDICARE, SELFPAY ==
--- NOTE | 2022-06-07 10:00 | DI.RAD_ITS ---
Exam(s) XR SACROILIAC JOINTS EXAM: XR SACROILIAC JOINTS CLINICAL HISTORY: low back pain-M54.50. TECHNIQUE: 2D digital imaging was performed. Four images were obtained. COMPARISON: No exams were available for comparison FINDINGS: Bones: No fracture is present. No bony destructive lesion is seen. Alignment is satisfactory. There are mild degenerative changes seen in the hips bilaterally. Moderate degenerative changes are seen i n the lumbar spine. SI Joint:No fusion, erosions or sclerosis is seen. Soft Tissue: Normal. IMPRESSION: 1. Normal radiographs of the SI Joints. 2. Degenerative changes seen in the lower lumbar spine and hips bilaterally. DATA REPOSITORY: RADIATION DOSE DELIVERED:
--- NOTE | 2022-06-07 10:00 | DI.RAD_ITS ---
Exam(s) XR LUMBAR SPINE COMPLETE EXAM: XR LUMBAR SPINE COMPLETE CLINICAL HISTORY: low back pain, Dorsalgia--M54.9. TECHNIQUE: 2D digital imaging was performed of the lumbar spine. Five images were obtained. AP, la teral, right oblique, left oblique and L5-S1 spot views were obtained. COMPARISON: No exams were available for comparison FINDINGS: BONES: No fracture or destructive lesion. Hypertrophic changes are seen at the endplates particularly at the L2-L3 level. Degenerative changes of the L5-S1 facets are noted. DISKS: There is disc space narrowing at L2-L3. There are vacuum discs at L2-L3 and L5-S1. ALIGNMENT: There is a mild right convex curvature. Mild retrolisthesis of L2 on L3 is noted. No spo ndylolysis. SOFT TISSUE: Surgical clips are seen in the right upper quadrant of the abdomen. IMPRESSION: Moderate degenerative changes are seen in the lumbar spine. DATA REPOSITORY: RADIATION DOSE DELIVERED:
== END ==
PROVIDERS: PCP Family Medicine; Visit Provider Family Medicine
DX: M47.817 Spondylosis without myelopathy or radiculopathy, lumbosacral region (principal); M16.0 Bilateral primary osteoarthritis of hip
CPT/HCPCS: 72110; 72202

== ENCOUNTER 2022-06-08 10:56 | Outpatient (CLI) | payer MEDICARE, SELFPAY ==
[2022-06-08 12:01] LABS: Source Nasal/Nares
[2022-06-08 18:29] LABS: COVID-19 PCR Negative (Negative)
== END 2022-06-08 10:57 | disposition home or self-care (01) ==
LOC: LBO 10:56
PROVIDERS: PCP Family Medicine; Referring Provider Family Medicine; Visit Provider Student in an Organized Health Care Education/Training Program
DX: Z20.822 Contact with and (suspected) exposure to COVID-19 (principal); Z01.818 Encounter for other preprocedural examination
CPT/HCPCS: 87635

== ENCOUNTER 2022-06-09 08:44 | Day surgery (SDC) | payer MEDICARE, SELFPAY ==
[2022-06-09 09:11] VITALS: BP 135/77; PULSE 63; RESP 18; TEMP 36.3; O2SAT 96
--- NOTE | 2022-06-09 09:38 | W.ANESPRE ---
General Info Date of Service Date Performed: 06/09/22 Height: 5 ft 5 in Weight: 67.3 kg Body Mass Index (BMI): 24.7 Surgical Procedure: Operation Date: 06/09/22 09:40 Proposed Procedure Side Surgeon p Hand Trigger Releases:long,small,and possibly index fingers Right Fili Mcgee MD Actual Procedure Side Surgeon p Hand Trigger Releases:long,small,and possibly index fingers Right Fili Mcgee MD Pre-Op Diagnosis Post-Op Diagnosis Trigger finer long, small and index right hand Trigger finer long, small and index right hand Meds Allergies and Home Medications Allergies Allergy/AdvReac Type Severity Reaction Status Date / Time codeine AdvReac ITCHY NOSE Verified 06/09/22 08:55 Home Medication Medication Instructions Recorded multivitamin 1 ea PO DAILY 01/20/13 glucosamine 375 mg-chondroitin sul 1 ea PO DAILY 01/09/14 A 200 mg-herb no.182 100 mg capsule (Cosamin ASU) cholecalciferol (vitamin D3) 50 1,000 unit PO DAILY 01/13/15 mcg (2,000 unit) capsule (Vitamin D3) bisoprolol fumarate 5 mg tablet 5 mg PO BID #180 tabs 07/19/21 vitamin B complex (B 1 tab PO DAILY 07/26/21 Complex-Vitamin B12 tablet) apixaban 5 mg tablet (Eliquis) 5 mg PO BID 30 days #180 tabs 08/03/21 simvastatin 20 mg tablet (Zocor) 20 mg PO HS #90 tab-caps 09/05/21 hydroxyzine HCl 10 mg tablet 10 mg PO DAILY #90 tabs 12/19/21 turmeric 400 mg capsule 400 mg PO DAILY 03/14/22 methocarbamol 500 mg tablet 500 mg PO Q8H PRN muscle spasm #30 03/29/22 tabs carbidopa 10 mg-levodopa 100 mg 1 tab PO QHS #90 tabs 06/03/22 tablet tramadol 50 mg tablet 50 mg PO Q8H PRN severe pain #9 06/09/22 tabs Current Visit Medications: Current Medications Generic Name Dose Route Start Last Admin Trade Name Freq PRN Reason Stop Dose Admin Ringer's Solution 1,000 mls @ 100 mls/hr 06/09/22 06:00 IV 07/08/22 23:59 INFUSION BRISSA Cefazolin Sodium/Dextrose 2 gm in 50 mls @ 100 mls/hr 06/09/22 06:00 Ancef Duplex IVPB 07/08/22 23:59 PREOP BRISSA IV Miscellaneous Supplies 1 each 06/09/22 06:00 Iv Access IV 07/08/22 23:59 DIRECTED BRISSA Naproxen 250 mg 06/09/22 07:13 Naproxen 500 Mg Tab PO BID PRN PRN Sodium Chloride 0 ml 06/09/22 06:00 Normal Saline Flush 10 Ml Syr IV 07/08/22 23:59 PRN PRN Sodium Chloride 0 ml 06/09/22 06:00 Normal Saline 10 Ml Vial IJ 07/08/22 23:59 DIRECTED PRN Sterile Water 0 ml 06/09/22 06:00 Water,Injection,Sterile 10 Ml Vial IJ 07/08/22 23:59 DIRECTED PRN Tramadol HCl 50 mg 06/09/22 07:13 Tramadol 50 Mg Tab PO Q6H PRN PRN PFSH Active Problems Active Problems: Problem Status Onset Code Colon polyps K63.5 Hyperlipidemia 07/28/13 E78.5 Osteoarthritis of knee M17.10 Restless legs G25.81 Sinus tachycardia 04/01/18 R00.0 Paroxysmal atrial fibrillation I48.0 Raynauds phenomenon I73.00 Obstructive sleep apnea syndrome in adult G47.33 Hyperthyroidism 09/04/11 E05.90 Herpes simplex B00.9 Allergic rhinitis J30.9 POLST (Physician Orders for Life-Sustaining Treatment) Z78.9 Recurrent low back pain M54.5 Chronic urticaria L50.8 Hyperlipidemia E78.5 Low back pain M54.50 Trigger finger, right index finger M65.321 Trigger finger, right middle finger M65.331 Trigger finger, right little finger M65.351 Medical History Medical History Conductive hearing loss Impacted cerumen of both ears Surgical History Surgical History (Updated 06/09/22 @ 09:06 by Katarzyna Boyd RN) History of surgery on wrist Hx of appendectomy Hx of cholecystectomy Hx of colonoscopy Hx of knee surgery Pt denies this. She states she broke her patella, no surgery, just had to be in a knee imobilizer.HE Tobacco Smoking/Tobacco Use Status: Former Tobacco Use Passive smoking exposure: Yes Second hand exposure: Yes Alcohol Alcohol Intake: former Substance Use Substance use: Never Substance use type: does not use Vital Signs and Lab Results Vital Signs Most Recent Vital Signs in EMR: Most Recent Vital Signs Temp Pulse Resp BP Pulse Ox 36.3 C L 63 18 135/77 96 06/09/22 09:11 06/09/22 09:11 06/09/22 09:11 06/09/22 09:11 06/09/22 09:11 Lab Results Blood Type / Crossmatch: No Data to Display Complete Blood Count: No Data to Display Complete Metabolic Panel: No Data to Display Liver Function Panel: No Data to Display Coagulation Panel: No Data to Display Cardiac Panel: No Data to Display Arterial Blood Gas: No Data to Display Venous Blood Gas: No Data to Display Pancreas Panel: No Data to Display Thyroid Panel: No Data to Display Infectious Disease: Coronavirus (COVID-19)(PCR) Negative (Negative) 06/08/22 11:46 Coronavirus 2019 Source Nasal/Nares 06/08/22 11:46 Blood Cultures: No Data to Display Toxicology Panel: No Data to Display Anesthesia Assessment and Plan Anesthesia History Personal History: PONV Family History: No Family History of Anesthesia Complications Exercise Tolerance Exercise Tolerance: Metabolic Equivalents>4 Pertinent Negatives Pertinent Negatives: No History of CVA/TIA Cardiac & Pulmonary Exam Cardiac Exam: Normal S1/S2 Heart Sounds Pulmonary Exam: Clear Bilateral Breath Sounds Implantable Cardiac Device Does patient have a Pacemaker or an ICD?: No Airway Exam Known Difficult Airway: No Mallampati Class: 1 Mouth Opening: Normal (> 3cm) Thyromental Distance: Greater than 3 cm Neck Range of Motion: Full ROM Neck Circumference: Normal Teeth Condition: Normal Dentition and Removable Dentures/Plates Upper ASA Classification ASA Score: ASA 2 Emergency Case?: No NPO Status NPO Status: NPO Clears >2 hours, Solids >8 hours Anesthesia Plan Resuscitation Status: Full Code Anesthesia Technique: General Anesthesia Airway Planned: Natural Airway Monitors Used: Standard Monitors
[2022-06-09 09:42] VITALS: BMI 24.7
[2022-06-09] MEDS: Lactated Ringers 1,000 ML 100 ML IV ×2 (09:43→09:55)
[2022-06-09] MEDS: ceFAZolin 2 GM/50 ML BAG IVPB (09:57)
[2022-06-09] MEDS: Lidocaine 1% Multi-Dose W/EPI 1/100,000 50 ML VIAL (10:02)
[2022-06-09 10:36] VITALS: BP 103/71; PULSE 67; RESP 14; TEMP 36; O2SAT 94
--- NOTE | 2022-06-09 10:36 | W.PM.DSUDISC ---
Discharge Plan Disposition Patient Disposition: HOME Condition: Stable Discharge Details Reason For Visit: Right hand surgery Attending Provider: Fili Mcgee Primary Care Provider: Cabrera Arvizu Home Meds and New Rx's Prescriptions: New tramadol 50 mg tablet 50 mg PO Q8H PRN (Reason: severe pain) Qty: 9 0RF Continued methocarbamol 500 mg tablet 500 mg PO Q8H PRN (Reason: muscle spasm) Qty: 30 0RF vitamin B complex [B Complex-Vitamin B12] Tablet 1 tab PO DAILY turmeric 400 mg capsule 400 mg PO DAILY multivitamin 1 EACH tablet 1 ea PO DAILY Cosamin ASU 1 EACH capsule 1 ea PO DAILY cholecalciferol (vitamin D3) [Vitamin D3] 2,000 UNIT capsule 1,000 unit PO DAILY bisoprolol fumarate 5 mg tablet 5 mg PO BID Qty: 180 3RF Eliquis 5 mg tablet 5 mg PO BID 30 Days Qty: 180 4RF simvastatin [Zocor] 20 mg tablet 20 mg PO HS Qty: 90 3RF hydroxyzine HCl 10 mg tablet 10 mg PO DAILY Qty: 90 3RF carbidopa-levodopa 10-100 mg tablet 1 tab PO QHS Qty: 90 3RF Discharge Instructions Additional Instructions: Surgery: Right long finger trigger release Activity: Gentle use of right hand for about 1-2 weeks.? Encourage full range of motion of all fingers to prevent stiffness. Prescriptions: Tramadol 50 mg take 1 every 8 hours as needed for severe pain You may use [id number] Tylenol/acetaminophen as needed for mild to moderate pain; you can also use naproxen/Aleve until resuming Eliquis tomorrow Dressings: Leave dressing in place for 2-3 days.? May then remove and cover incision with Band-Aid.? May get wet after 3 days.? Do not soak underwater until after stitches are removed. Follow-up: 10-[address] Mcgee Let us know right away if you develop any redness, drainage, fevers, chest pain, or trouble breathing.? Do not drink alcohol or drive for at least 24 hours after anesthesia. Please call the office during business hours with any questions or concerns. DS: Diagnosis Discharge Diagnosis (1) Trigger finger, right index finger: Status: Acute (2) Trigger finger, right middle finger: Status: Acute (3) Trigger finger, right little finger: Status: Acute
--- NOTE | 2022-06-09 10:38 | W.ANESPOSTOP ---
Postoperative Evaluation Date, Time and Location Date Performed: 06/09/22 Time Performed: 10:38 Patient Location: Day Surgery Unit Vital Signs Most Recent Imported Vital Signs: Most Recent Vital Signs Temp Pulse Resp BP Pulse Ox 36.3 C L 63 18 135/77 96 06/09/22 09:11 06/09/22 09:11 06/09/22 09:11 06/09/22 09:11 06/09/22 09:11 Most Recent Manually Entered Vital Signs: Adult Blood Pressure: 103/71 Heart Rate: 67 Respirations: 10 Oxygen Saturation (%): 96 Temperature (C): 36.3 C Pain Score (0-10 Scale): 0 Pain Score Most Recent Pain Score: Most Recent Pain Score Pain Level 0 06/09/22 09:11 Assessment Mental Status: Awake (Alert & Oriented to Patient Baseline) Airway and Respiratory Function: Patent airway with normal (patient baseline) respiratory exam Cardiovascular Function: Hemodynamically Stable Hydration Status: Adequately Hydrated Nausea & Vomiting: No Nausea or Vomiting Pain: Pt. Denies Any Pain Peripheral Nerve Block: Patient did not receive a nerve block
[2022-06-09 10:39] VITALS: BP 103/71; PULSE 67; RESP 10; TEMPC 36.3; O2SAT 96
--- NOTE | 2022-06-09 10:39 | ROE_ITS ---
Operative Note Operative Note DATE OF PROCEDURE: 06/09/22 PRE-OP DIAGNOSIS: Right hand long finger trigger finger POST-OP DIAGNOSIS: same PROCEDURE: Right hand long finger trigger release, CPT# 75170 SURGEON: Fili Mcgee ANESTHESIA TYPE: Local By Surgeon and MAC Refer to Anesthesia Record ESTIMATED BLOOD LOSS: 2 TOURNIQUET TIME: 0 COMPLICATIONS: None Patient was transported to: PACU Patient's condition: stable Indications: Please see complete medical record for details. Procedure Description: In the operating room, MAC + local anesthesia were induced. The patient was positioned supine on the operating room table. All bony prominences were well- padded. Preoperative antibiotics were administered. The right hand was prepped and draped in the usual sterile fashion. The correct patient, procedures, and side of the procedures were all verified prior to incision. A small volar longitudinal incision was made centered over long finger the MCP J. Small scissors and snaps were used to spread tissue and identify the A1 octavio. Scalpel was used to perform release and snaps spreading proximally distally used to free all remaining adhesions. The digit had full extension and flexion without any mechanical symptoms. The flexor tendons were readily delivered up through the wound confirming full release. Some fraying tenosynovitis was debrided from the flexor tendons. Hemostasis was appropriate. Skin was closed using horizontal mattress with 4-0 nylon. Xeroform, gauze, and Jose bandage were applied over the incision and wrapped around the hand and wrist. The patient tolerated anesthesia and procedure without complication and was transferred to the recovery room in a stable condition.
[2022-06-09 11:11] VITALS: BP 125/62; PULSE 53; RESP 16; TEMP 36.4; O2SAT 99
== END 2022-06-09 12:10 | disposition home or self-care (01) ==
PROVIDERS: PCP Family Medicine; Visit Provider Student in an Organized Health Care Education/Training Program
PROC: (CPT 26055; principal; 2022-06-09 09:30)
DX: M65.331 Trigger finger, right middle finger; M65.351 Trigger finger, right little finger; M65.321 Trigger finger, right index finger; I48.0 Paroxysmal atrial fibrillation
CPT/HCPCS: 26055; 99213; J0690; J1100; J1885; J2405

== ENCOUNTER → 2022-06-21 11:00 | Outpatient (BNVA) | payer MEDICARE, SELFPAY | PROVIDERS: PCP Family Medicine; Referring Provider Family Medicine; Visit Provider Student in an Organized Health Care Education/Training Program | DX: M65.331 Trigger finger, right middle finger (principal) ==

== ENCOUNTER → 2022-09-01 00:43 | Outpatient (CLI) | payer MEDICARE, SELFPAY ==
--- OUTSIDE RECORDS SUMMARY | 2022-09-01 00:45 | XMS_ITS | Clinical Summary ---
:1940 Author Organization [facility] [place] [address] Care Team Providers Name Role Phone Gamaliel THAKUR MD, Carlos A Gibson Primary Care Provider [phone] Allergies No known active allergies Medications Medication Sig Dispensed Refills Start Date End Date Status atorvastatin (LIPITOR) 10 10mg, PO, QPM 0 10/12/2006 Active mg tablet hydrOXYzine (ATARAX) 10 10mg, PO, QD 0 10/12/2006 Active mg tablet carbidopa-levodopa 1/2-1 TAB QHS 0 10/12/2006 Active (SINEMET) 10-100 mg per Tablet(s), PO, tablet QHS Immunizations Name Administration Dates Next Due Td, adult 04/15/2004 Social History Tobacco Use Types Packs/Day Years Used Date Never Assessed Sex Assigned at Date Recorded Not on file Plan of Treatment Health Maintenance Due Date Last Done Comments Covid-19 Vaccine (#1) 1940 Hepatitis C Screening 1960 Tdap adult 1961 Zoster vaccine (1 of 2) 1992 Advance Directive 1997 Bone Density Scan 2007 Pneumoccocal Vaccine: 65+ (1 - PCV) 2007 Tetanus vaccine 04/15/2014 04/15/2004 Influenza (Flu) vaccine (1 of 1 - Influenza standard 07/13/2022 series) Insurance Payer Benefit Plan / Subscriber ID Effective Dates Phone Addre ss Type Group [employer] [place] [id number] 2020-Presen [phone] [place] [employer] t [id number] [place] [address] Care Teams Dye Stand Loader Relationship Specialty Start Date End Date Carlos A Alston III, MD PCP - General 10/04/[address] [place] [address]
--- OUTSIDE RECORDS SUMMARY | 2022-09-01 00:45 | XMS_ITS | Encounter Summary ---
:1940 Author Organization [facility] [place] [address] Care Team Providers Name Role Phone Gamaliel THAKUR MD, Carlos A Gibson Primary Care Provider [phone] Encounter Details Date Type Department Care Team Description 10/03/2021 Hospital [place] [address] Social History Tobacco Use Types Packs/Day Years Used Date Never Assessed Sex Assigned at Date Recorded Not on file documented as of this encounter Medications at Time of Discharge Medication Sig Dispensed Refills Start Date End Date atorvastatin (LIPITOR) 10 mg 10mg, PO, QPM 0 11/2005 tablet hydrOXYzine (ATARAX) 10 mg 10mg, PO, QD 0 006 tablet carbidopa-levodopa (SINEMET) 11/13-1 TAB QHS 0 11/2005 10-100 mg per tablet Tablet(s), PO, QHS documented as of this encounter Plan of Treatment Not on filedocumented as of this encounter Procedures Procedure Name Priority Date/Time Associated Diagnosis Comme [facility] SURGICAL PATHOLOGY Routine 10/03/2021 10:22 AM Obdulia aldana for this REPORT EST procedure are i n the results section. documented in this encounter Results Surgical Pathology Report (10/03/2021 10:22 AM EST) Component Value Ref Test Analysis Performed At [facility] Method Time Signature Surgical [id number] ? Location: [facility] Report The signing pathologist has (i) examined the relevant preparation(s) for the [facility] specimen(s) and (ii) rendered or confirmed the diagnosis(es) . HOSPITAL LABORATORY . ?Surgic al Pathology DIAGNOSIS Right zygoma, skin shave: - Foreign body giant cells, associated hair shafts, and scant mixed inflammation ?(see discussion) Electronically signed by: ?Walt Jang MD Verified: ??10/12/2021 14:51 ??Dermatopathologist Performed at: ??[place] [place], [place], [place] DISCUSSION The findings are not entirel y specific but can be seen in a previously ruptured cyst or follicle. SPECIMEN(S) SUBMITTED A - R zygoma, shave Referring Identifier: ?(not provided) CLINICAL INFORMATION 2 mm pink nodule, BCC ? SPECIMEN PROCESSING A - Labeled/Fixative: Right zygoma, formalin. Quantity/Size: ??Two, 0.3 x 0.2 x 0.1 cm and 0.2 x 0.1 x 0.1 cm from. Tissue Description: Mulligan skin shave and an irregular piece of soft tissue. Sections/Processing: Submitted en toto ??in 2 cassettes as follows: ?A1: ??Mulligan skin shave ?A2: ??Irregular piece of soft tissue ??MAURY Specimen (Source) Anatomical Collection Method Collection Time Re ceived Time Location / / Volume Laterality 10/03/2021 10:22 AM EST Mei Chua MD PATHOLOGY/CYTOLOGY ORDERABLE S Performing Organization Address City/State/[place] [address] [facility] [address] documented in this encounter Visit Diagnoses Not on filedocumented in this encounter Care Teams Lithographer Apprentice Relationship Specialty Start Date End Date Carlos A Alston III, MD PCP - General 10/04/[address] [place] [address] documented as of this encounter
--- OUTSIDE RECORDS SUMMARY | 2022-09-01 00:46 | XMS_ITS | Encounter Summary ---
:1940 Author Organization [facility] Address [address] [place] [address] Care Team Providers Name Role Phone Unknown, Provider Primary Care Provider Reason for Visit Reason Onset Date Comments Medication Adherence 08/05/2020 Encounter Details Date Type Department Care Team Description 08/05/2020 Telephone [facility] [place] Janes Mcguire reinspector Adherence [facility] [address] [place] [address] Social History Tobacco Use Types Packs/Day Years Used Date Never Assessed Sex Assigned at Date Recorded Not on file documented as of this encounter Miscellaneous Notes Telephone Encounter - Janes Mcguire RN - 08/05/[address] Boyle's thoughts on steroid use with anticoagulation. Patient verbalized understanding. elephone Encounter - Ernie Boyle MD - 08/05/2020 1620 EDT I don't see a problem with that. JM elephone Encounter - Janes Mcguire RN - 08/05/2020 1203 EDT Patient contacted the clinic after being prescribed 20 day course of prednisone. [facility] Orthopaedic Surgeon, Dr. Skelton was hoping this treatment would reduce inflammation and thereby allow her to have trigger finger surgery after treatment. Dr. Boyle, Do you say any issue with prednisone and Eliquis comitantly? documented in this encounter Plan of Treatment Upcoming Encounters Date Type Specialty Care Team Description 03/13/2023 Office Visit Cardiology Ernie Boyle MD [address] [place] [address] [address] [place] [address] (Wo rk) documented as of this encounter Visit Diagnoses Not on filedocumented in this encounter Care Teams Clinic Scheduler Relationship Specialty Start Date End Date Unknown, Provider, PCP - General 03/02/15 01/24/21 documented as of this encounter
--- OUTSIDE RECORDS SUMMARY | 2022-09-01 00:46 | XMS_ITS | Encounter Summary ---
:1940 Author Organization [facility] Address [address] [place] [address] Care Team Providers Name Role Phone Unavailable Primary Care Provider Unavailable Encounter Details Date Type Department Care Team Description 01/22/2002 Results Only [facility] - Anayeli Martinez NP conversion [address] [place] [address] Social History Tobacco Use Types Packs/Day Years Used Date Never Assessed Sex Assigned at Date Recorded Not on file documented as of this encounter Plan of Treatment Upcoming Encounters Date Type Specialty Care Team Description 03/13/2023 Office Visit Cardiology Ernie Boyle MD [address] [place] [address] [address] [place], [place] [phone] (Wo rk) documented as of this encounter Procedures Procedure Name Priority Date/Time Associated Diagnosis Comme [facility] CYTOPATHOLOGY Routine 01/22/2002 0:00 EST Results for this procedure are i n the results section . documented in this encounter Results CYTOPATHOLOGY (01/22/2002 0:00 EST) Pathology Report: CYTOPATHOLOGY REPORT [facility] Reports generated via electronic interface contain johnny ginal data; however they are lacking the format of the original re port. Caution should be taken when reading/interpreting unfo rmatted reports. Name: ? LEEANN PETTIT ? Accession #: ? [id number] : ? 1940 (Age: 61) ??F ?Collect Date: ? 01/10 Location: ? [facility] ? Receive Date : ? 01/24/2002 Provider: ?ANAYELI THOMAS CRYPTOLOGIC TECHNICIAN Copy to: ? Specimen/Source: ?ThinPrep Pap Test, Cervix/ Endocervix Last Menstrual Period: ? 1994 Hormonal/Contraceptive Status: ? Hormone Replacement Therapy Previous Gynecologic Pathology: ? Yes: Benign Ployp Treatment History: ? Hysterectomy: ??and D + C ? SPECIMEN ADEQUACY ? Satisfactory for Evaluation - transformation zone component present GENERAL CATEGORIZATION ? Negative for Intraepithelial Lesion or Malignan cy ? Document reviewed and electronically signed by: ? Laila Garcia, SCT(ASCP) ? Report Date: ??01/29/2002 10:48 End of Report Specimen Performing Organization Address City/State/ZIP Code Phon e Number [facility] [address] [place] [address] SERVICES [facility] [address] [place] [address] documented in this encounter Visit Diagnoses Not on filedocumented in this encounter
--- OUTSIDE RECORDS SUMMARY | 2022-09-01 00:46 | XMS_ITS | Encounter Summary ---
:1940 Author Organization [facility] Address [address] [place] [address] Care Team Providers Name Role Phone Tatum Castano MD Primary Care Provider Reason for Visit Reason Comments Atrial Fibrillation Encounter Details Date Type Department Care Team Description 03/13/2022 Office Visit [facility] - BoyleLaluis manuel Pickard oxysmal atrial fibrillation (HCC-CMS) (HCC) (Primary Dx); [facility] Fabio Mixed hyperlipidemia; Clinic [address] [facility] PAC (premature atrial contraction) [address] [facility] [address] [place] [address] [place] [phone] Social History Tobacco Use Types Packs/Day Years Used Date Former Smoker Smokeless Tobacco: Never Used Sex Assigned at Date Recorded Not on file documented as of this encounter Last Filed Vital Signs Vital Sign Reading Time Taken Comments Blood Pressure 126/68 03/13/2022 1112 EDT Pulse 59 03/13/2022 1112 EDT Temperature - - Respiratory Rate - - Oxygen Saturation - - Inhaled Oxygen Concentration - - Weight 69.4 kg (153 lb) 03/13/2022 1112 EDT Height 162.6 cm (5' 4) 03/13/2022 1112 EDT Body Mass Index 26.26 03/13/2022 1112 EDT documented in this encounter Functional Status Functional Status Response Date of Assessment Because of a physical, mental, or emotional condition, No 01/25/2021 does this person have difficulty doing errands alone such as visiting a doctor's office or shopping? Cognitive Status Response Date of Assessment Because of a physical, mental, or emotional condition, No 01/25/2021 does this person have serious difficulty concentrating, remembering, or making decisions? documented as of this encounter Progress Notes Ernie Boyle MD - 03/13/2022 1115 EDT [facility] [place] Visit Subjective: Chief Complaint(s): Atrial Fibrillation HPI: 81-year-old woman with history of palpitations, diagnosed with paroxysmal atrial fibrillation 2018, recurrent ectopic atrial tachycardia, hyperlipidemia and history of hyperthyroidism. Anticoagulated with Eliquis and rate controlled with metoprolol. Returns to the office for follow-up, continues doing very well. No recent AF episodes. Her heart feels quiet, apart from occasional very brief little flutters. Continues to avoid AF triggers, stays well hydrated, avoids alcohol, reduced caffeine intake. Occasional B arm weakness, lasts 1-2 min only, re miniscent of her chemical stress test. She denies chest pain, shortness of breath, syncope, orthopnea, PND, edema, fevers, chills, digestive troubles. She has restless leg syndromes that is treated with carbidopa/levodopa. No issues with nose bleeding since a cauterization treatment. She uses MiraLAX for occasional constipation. Had hematuria, no malignancy seen on cystoscopy, now under hormone Rx. Her lipids are checked by her PCP. Had a sleep study, diagnosed with mild sleep apnea only. Had both Covid vaccinations and booster. Past medical history: Atrial tachycardia Hyperlipidemia Paroxysmal atrial fibrillation History of hypothyroidism Osteoarthritis left knee PAC Restless leg syndrome Snoring Past surgical history Appendectomy Left knee arthroplasty Cholecystectomy Colonoscopy 2018, no polyps. Meniscectomy Current Outpatient Medications on File Prior to Visit Medication Sig Dispense Refill ??? apixaban (ELIQUIS) 5 mg tablet Take by mouth 2 times daily. ??? bisoprolol (ZEBETA) 5 mg tablet Take 5 mg by mouth 2 times daily. ??? carbidopa-levodopa (SINEMET) 10-100 mg per tablet Take 1 Tab by mouth daily. ??? cholecalciferol, Vitamin D3, 1,000 unit tablet Take 1,000 Units by mouth daily. ??? cyanocobalamin (VITAMIN B-12) 500 mcg tablet Take 500 mcg by mouth daily. ??? dextran 70-hypromellose (TEARS RENEWED) ophthalmic solution Place 2 Drops into both eyes 3 timesdaily as needed. (Patient not taking: Reported on 03/13/2022) ??? estradioL (ESTRACE) 0.01 % (0.1 mg/gram) vaginal cream APPLY 2 GRAMS VAGINALLY TWICE WEEKLY (Patient not taking: Reported on 03/13/2022) ??? famotidine (PEPCID) 20 mg tablet Take 2 Tabs by mouth daily as needed. ??? glucosam/chond-msm1/C/jose/bor ([id number] COMPLEX ORAL) Take by mouth. ??? hydrOXYzine (ATARAX) 10 mg tablet Take 10 mg by mouth daily. ??? multivitamin (THERAGRAN) per tablet Take 1 Tab by mouth daily. ??? simvastatin (ZOCOR) 20 mg tablet Take 20 mg by mouth at bedtime. ??? tiZANidine (ZANAFLEX) 2 mg capsule TAKE ONE CAPSULE BY MOUTH EVERY 8 HOURS NEEDED FOR MUSCLE SPASTICITY (Patient not taking: Reported on 03/13/2022) ??? TURMERIC ORAL Take 400 mg by mouth daily. No current facility-administered medications on file prior to visit. Social History: , lives with spouse, retired, volunteers at [employer], former smoker, quit ,no alcohol. Family history: Father at age 34, mother with depression, at age 47, suicide, sister at age 72, with rheumatoid arthritis, brain aneurysm, hyperlipidemia, stroke and hypertension. I have reviewed current problem list and current medications. ROS: A 10-system ROS was performed, pertinent items as mentioned in HPI, otherwise negative. ROS Objective: Examination: Vitals: BP 126/68 (BP Cuff Location: Right arm, BP Patient Position: Sitting, BP Cuff Sizes: Adult, regular) Pulse 59 Ht 162.6 cm (64) Wt 69.4 kg (153 lb) BMI 26.26 kg/m?? Body mass index is 26.26 kg/m??. Physical Exam GENERAL APPEARANCE: no acute distress, pleasant, cooperative. HEENT EYES: conjunctiva clear, sclerae anicteric. NECK: supple, no JVD, no carotid bruit. CHEST: normal shape and expansion. HEART: regular rate and rhythm, normal S1S2, no murmurs, rub or gallop. LUNGS: clear to auscultation & percussion, good air entry bilaterally. ABDOMEN: soft, NT/ND, BS present. EXTREMITIES: no clubbing, no cyanosis, no edema. PERIPHERAL PULSES: carotid, radial, PT: 2+ bilaterally. SKIN: warm & dry. NEUROLOGIC EXAM: alert & oriented x3, nonfocal, normal speech, gait normal. Assessment & Plan: 1. Paroxysmal atrial fibrillation (HCC-CMS) (HCC) 2. Mixed hyperlipidemia 3. PAC (premature atrial contraction) 81-year-old woman with history of palpitations, diagnosed with paroxysmal atrial fibrillation 2018, recurrent ectopic atrial tachycardia, hyperlipidemia and history of hyperthyroidism. Anticoagulated with Eliquis and rate controlled with metoprolol. Continues doing very well, no significant recurrenceof atrial fibrillation. Blood pressure and heart rate are in the right range. Lipids are followed byher PCP. She adheres to heart healthy diet and works on regular exercise. Continue current medications, follow-up in 1 year. She will send us recent labs from [facility]. I spent a total of 30 minutes on the date of this encounter meeting with the patient and reviewing documentation/coordinating care as described in the above note. This was separate from any procedures performed at the time of the visit. Ernie Boyle MD Addendum (03/19/2022): BMP, ALT & TSH normal, HgbA1C 6.1, indicating prediabetes (see scans). JM documented in this encounter Plan of Treatment Upcoming Encounters Date Type Specialty Care Team Description 03/13/2023 Office Visit Cardiology Ernie Boyle MD [address] [place] [address] [address] [place] [address] (Wo rk) documented as of this encounter Visit Diagnoses Diagnosis Paroxysmal atrial fibrillation (HCC-CMS) (HCC) - Primary Atrial fibrillation Mixed hyperlipidemia PAC (premature atrial contraction) Supraventricular premature beats documented in this encounter Historical Medications This list may reflect changes made after this encounter. Medication Sig Dispensed Refills Start Date End Date TURMERIC ORAL Take 400 mg by 0 mouth daily. cyanocobalamin (VITAMIN Take 500 mcg by 0 B-12) 500 mcg tablet mouth daily. added in this encounter Care Teams Sales Operations Consultant Relationship Specialty Start Date End Date Tatum Castano MD PCP - General 01/25/[address] [place] [address] [address] [place] [phone] documented as of this encounter
--- OUTSIDE RECORDS SUMMARY | 2022-09-01 00:46 | XMS_ITS | Encounter Summary ---
:1940 Author Organization [facility] Address [address] [place] [address] Care Team Providers Name Role Phone Tatum Castano MD Primary Care Provider Reason for Visit Reason Comments Follow-up Yearly Atrial Fibrillation PAF Encounter Details Date Type Department Care Team Description 01/25/[address] [facility] - Ernie Boyle oxysmal atrial fibrillation (HCC-CMS) (Primary Dx); [facility] [place] Fabio Mixed hyperlipidemia; Clinic [address] [facility] PAC (premature atrial contraction) [address] [facility] [address] [place] [address] [place], [place] [phone] Social History Tobacco Use Types Packs/Day Years Used Date Former Smoker Smokeless Tobacco: Never Used Sex Assigned at Date Recorded Not on file documented as of this encounter Last Filed Vital Signs Vital Sign Reading Time Taken Comments Blood Pressure 130/54 01/25/2021 1015 EDT Pulse 68 01/25/2021 1015 EDT Temperature - - Respiratory Rate - - Oxygen Saturation 97% 01/25/2021 1015 EDT Inhaled Oxygen Concentration - - Weight 71.2 kg (157 lb) 01/25/2021 1015 EDT Height 162.6 cm (5' 4) 01/25/2021 1015 EDT Body Mass Index 26.95 01/25/2021 1015 EDT documented in this encounter Functional Status [...] documented as of this encounter Progress Notes Enrie Boyle MD - 01/25/2021 1000 EDT [facility] [place] Visit Subjective: Chief Complaint(s): Follow-up (Yearly ) and Atrial Fibrillation (PAF) HPI: 80-year-old woman with history of palpitations, diagnosed with paroxysmal atrial fibrillation 2018, recurrent ectopic atrial tachycardia, hyperlipidemia and history of hyperthyroidism. Anticoagulated with Eliquis and rate controlled with metoprolol. Returns to the office for follow-up, doing very well. Had one 20min-episode of AF one year ago, nothing significant since then, Her heart feels quiet, apart from occasional brief little flutters. Triesto avoid AF triggers, stays well hydrated, She denies chest pain, shortness of breath, syncope, orthopnea, PND, edema, fevers, chills, digestive troubles. She has restless leg syndromes that is treatedwith carbidopa/levodopa. No issues with nose bleeding since a cauterization treatment. She uses MiraLAX for occasional constipation. Had hematuria, no malignancy seen on cystoscopy, now under hormone Rx. Her lipids are checked by her PCP. Had a sleep study, diagnosed with mild sleep apnea only. Had both Covid vaccinations. Past medical history: Atrial tachycardia Hyperlipidemia Paroxysmal [...] Take 1,000 Units by mouth daily. ??? dextran 70-hypromellose (TEARS RENEWED) ophthalmic solution Place 2 Drops into both eyes 3 timesdaily as needed. ??? estradioL (ESTRACE) 0.01 % (0.1 mg/gram) vaginal cream APPLY 2 GRAMS VAGINALLY TWICE WEEKLY ??? famotidine (PEPCID) 20 mg tablet Take 2 Tabs by mouth daily as needed. ??? glucosam/chond-msm1/C/jose/bor ([id number] COMPLEX ORAL) Take by mouth. ??? hydrOXYzine (ATARAX) 10 mg tablet Take 10 mg by mouth 3 times daily as needed. ??? multivitamin (THERAGRAN) per tablet Take 1 Tab by mouth daily. ??? simvastatin (ZOCOR) 20 mg tablet Take 20 mg by mouth at bedtime. ??? tiZANidine (ZANAFLEX) 2 mg capsule TAKE ONE CAPSULE BY MOUTH EVERY 8 HOURS NEEDED FOR MUSCLE SPASTICITY No current facility-administered medications on file prior to visit. Social History: , lives with spouse, retired, volunteers at [employer], former smoker, quit ,no alcohol. Family history: Father at age 34, mother with depression, at age 47, suicide, sister at age 72, with rheumatoid arthritis, brain aneurysm, hyperlipidemia, stroke and hypertension. I have reviewed current problem list and current medications. ROS: A 10-system ROS was performed, pertinent items as mentioned in HPI, otherwise negative. ROS Objective: Examination: Vitals: BP 130/54 Pulse 68 Ht 162.6 cm (64) Wt 71.2 kg (157 lb) SpO2 97% BMI 26.95 kg/m?? Body mass index is 26.95 kg/m??. Physical Exam GENERAL APPEARANCE: no acute [...] & Plan: 1. Paroxysmal atrial fibrillation (HCC-CMS) 2. Mixed hyperlipidemia 3. PAC (premature atrial contraction) 80-year-old woman with history of palpitations, diagnosed with paroxysmal atrial fibrillation 2018, recurrent ectopic atrial tachycardia, hyperlipidemia and history of hyperthyroidism. Anticoagulated with Eliquis and rate controlled with metoprolol. Continues doing very well today, no significant recurrence of atrial fibrillation. Blood pressure and heart rate are in the right range. Lipids are followed by her PCP. She adheres to heart healthy diet and works on regular exercise. Continue current medications, follow-up in 1 year. I spent a total of 30 minutes on the date of this encounter meeting with the patient and reviewing documentation/coordinating care as described in the above note. This was separate from any procedures performed at the time of the visit. Ernie Boyle MD documented in this encounter Plan of Treatment Upcoming Encounters Date Type Specialty Care Team Description 03/13/2023 Office Visit Cardiology Ernie Boyle MD [address] [place] [address] [phone] (Wo rk) documented as of this encounter Visit Diagnoses Diagnosis Paroxysmal atrial fibrillation (HCC-CMS) (HCC) - Primary Atrial fibrillation Mixed hyperlipidemia PAC (premature atrial contraction) Supraventricular premature beats documented in this encounter Discontinued Medications Medication Sig Discontinue Reason Start Date End Date Ranitidine HCl 300 mg Take by mouth. Alternate therapy 01/25/2021 capsule METOPROLOL TARTRATE ORAL Take 50 mg by mouth Alternate therapy 01/25/2021 2 times daily. famotidine (PEPCID) 20 mg Take 40 mg by mouth Order modification 01/25/2021 tablet daily. documented as of this encounter Historical Medications This list may reflect changes made after this encounter. Medication Sig Dispensed Refills Start Date End Date famotidine (PEPCID) 20 Take 2 Tabs by mouth 0 mg tablet daily as needed. tiZANidine (ZANAFLEX) 2 TAKE ONE CAPSULE BY 0 08/2020 mg capsule MOUTH EVERY 8 HOURS NEEDED FOR MUSCLE SPASTICITY estradioL (ESTRACE) APPLY 2 GRAMS 0 01/10/2021 0.01 % (0.1 mg/gram) VAGINALLY TWICE WEEKLY vaginal cream bisoprolol (ZEBETA) 5 Take 5 mg by mouth 2 0 /07/2021 mg tablet times daily. famotidine (PEPCID) 20 Take 40 mg by mouth 0 01/25/2021 mg tablet daily. added in this encounter Care Teams Boiling House Hand Relationship Specialty Start Date End Date Tatum Castano MD PCP - General 01/25/[address] [place] [address] [address] [place] [phone] documented as of this encounter
--- OUTSIDE RECORDS SUMMARY | 2022-09-01 00:46 | XMS_ITS | Encounter Summary ---
:1940 Author Organization [facility] Address [address] [place] [address] Care Team Providers Name Role Phone Unavailable Primary Care Provider Unavailable Encounter Details Date Type Department Care Team Description 03/22/2005 Results Only [facility] - Aylin Mcallister od, RESEARCH RN SPEC [address] [place] [phone] (Wo rk) Social History Tobacco Use Types Packs/Day Years Used Date Never Assessed Sex Assigned at Date Recorded Not on file documented as of this encounter Plan of Treatment Upcoming Encounters Date Type Specialty Care Team Description 03/13/2023 Office Visit Cardiology Ernie Boyle MD [address] [place] [address] [address] [place] [address] (Wo rk) documented as of this encounter Procedures Procedure Name Priority Date/Time Associated Diagnosis Comme nts CYTOPATHOLOGY Routine 03/22/2005 0:00 EDT Results for this procedure are i n the results section . documented in this encounter Results CYTOPATHOLOGY (03/22/2005 0:00 EDT) Pathology Report: CYTOPATHOLOGY REPORT [facility] Reports generated via electronic interface contain johnny ginal data; however they are lacking the format of the original re port. Caution should be taken when reading/interpreting unfo rmatted reports. Name: ? LEEANN PETTIT ? Accession #: ? [id number] : ? 1940 (Age: 64) ??F ?Collect Date: ? 03/12 Location: ? [facility] ? Receive Date : ? 03/23/2005 Provider: ?AYLIN SAGASTUME RESEARCH RN SPEC Copy to: ? Specimen/Source: ?ThinPrep Pap Test, Cervix/ Endocervix Last Menstrual Period: ? 1994 Other: ? HPVA - HPV testing requested if ASC-US on the current ThinPrep Pap test. ? SPECIMEN ADEQUACY ? Unsatisfactory for Evaluation - obscuring lubricant contamination, which precl udes interpretation of 75% or more of the epithelial cells Unsatisfactory for Evaluation, - insufficient numbers of squamous epith elial cells (less than 10% of expected cellularity) GENERAL CATEGORIZATION ? Specimen processed and examined, but unsatisfac tory for evaluation of epithelial abnormality. Recommend repeat Pap test or further follow up, as cli nically indicated. ? Document reviewed and electronically signed by: ? LEÓN Kate(ASCP) ? Report Date: ??03/29/2005 13:45 End of Report Specimen Performing Organization Address City/State/ZIP Code Phon e Number [facility] [address] [place] [address] SERVICES [facility] [address] [place] [address] documented in this encounter Visit Diagnoses Not on filedocumented in this encounter
--- OUTSIDE RECORDS SUMMARY | 2022-09-01 00:46 | XMS_ITS | Clinical Summary ---
:1940 Author Organization [facility] Address [address] [place] [address] Care Team Providers Name Role Phone Tatum Castano MD Primary Care Provider Allergies Active Allergy Reactions Severity Noted Date Comments Codeine Itching Medium 01/31/2020 Medications Medication Sig Dispensed Refills Start Date End Date Status multivitamin Take 1 Tab by 0 Act ashlie (THERAGRAN) per tablet mouth daily. glucosam/chond-msm1/C/ Take by mouth. 0 Active jose/bor ([id number] COMPLEX ORAL) cholecalciferol, Take 1,000 Units 0 Active Vitamin D3, 1,000 unit by mouth daily. tablet hydrOXYzine (ATARAX) Take 10 mg by 0 Active 10 mg tablet mouth daily. carbidopa-levodopa Take 1 Tab by 0 Active (SINEMET) 10-100 mg mouth daily. per tablet simvastatin (ZOCOR) 20 Take 20 mg by 0 Active mg tablet mouth at bedtime. dextran Place 2 Drops into 0 A ctive 70-hypromellose (TEARS both eyes 3 times RENEWED) ophthalmic daily as needed. solution apixaban (ELIQUIS) 5 Take by mouth 2 0 Active mg tablet times daily. bisoprolol (ZEBETA) 5 Take 5 mg by mouth 0 1 Active mg tablet 2 times daily. estradioL (ESTRACE) APPLY 2 GRAMS 0 01/10/2021 Active 0.01 % (0.1 mg/gram) VAGINALLY TWICE vaginal cream WEEKLY tiZANidine (ZANAFLEX) TAKE ONE CAPSULE 0 10/21/2020 Active 2 mg capsule BY MOUTH EVERY 8 HOURS NEEDED FOR MUSCLE SPASTICITY famotidine (PEPCID) 20 Take 2 Tabs by 0 01/25/2021 Active mg tablet mouth daily as needed. cyanocobalamin Take 500 mcg by 0 Active (VITAMIN B-12) 500 mcg mouth daily. tablet TURMERIC ORAL Take 400 mg by 0 A ctive mouth daily. Active Problems Problem Noted Date Paroxysmal atrial fibrillation (HCC-CMS) 01/31/2020 Mixed hyperlipidemia 01/31/2020 PAC (premature atrial contraction) 01/31/2020 Snoring 01/31/2020 Social History Tobacco Use Types Packs/Day Years Used Date Former Smoker Smokeless Tobacco: Never Used Sex Assigned at Date Recorded Not on file Last Filed Vital Signs Vital Sign Reading Time Taken Comments Blood Pressure 126/68 03/13/2022 1112 EDT Pulse 59 03/13/2022 1112 EDT Temperature - - Respiratory Rate - - Oxygen Saturation 97% 01/25/2021 1015 EDT Inhaled Oxygen Concentration - - Weight 69.4 kg (153 lb) 03/13/2022 1112 EDT Height 162.6 cm (5' 4) 03/13/2022 1112 EDT Body Mass Index 26.26 03/13/2022 1112 EDT Plan of Treatment Upcoming Encounters Date Type Specialty Care Team Description 03/13/2023 Office Visit Cardiology Ernie Boyle MD [address] [place] [address] [address] [place], [place] [phone] (Wo rk) Health Maintenance Due Date Last Done Comments COVID-19 Vaccine (#1) 1940 Fall Risk Screening 03/13/2023 03/13/2022, 01/25/2021 Insurance Payer Benefit Plan Subscriber ID Effective Phone Address Typ e / Group Dates BCBS BCBS [place] BLUE [id number] 2020-Pres [phone] [address] Medicare MEDICARE ADVANTAGE ent [id number] [place] [address] IndiosallyLeeann Personal/Famil Self 1940 [address]) [place] [address] IndiosallyLeeann Personal/Famil Self 1940 [address] [place] [address] IndiosallyLeeann Personal/Famil Self 1940 [address] [place] [address] Care Teams Siebel Consultant Relationship Specialty Start Date End Date Tatum Castano MD PCP - General 01/25/[address] [place] [address] [address] [place] [phone]
--- OUTSIDE RECORDS SUMMARY | 2022-09-01 00:46 | XMS_ITS | Encounter Summary ---
:1940 Author Organization [facility] Address [address] [place] [address] Care Team Providers Name Role Phone Unavailable Primary Care Provider Unavailable Encounter Details Date Type Department Care Team Description 06/15/2008 Before PRISM Converted [facility] - Vikki Szymanski, Visit (Maple) Maple conversion SOFTWARE PROJECT ENGINEER [address], [place] [id number] Social History Tobacco Use Types Packs/Day Years Used Date Never Assessed Sex Assigned at Date Recorded Not on file documented as of this encounter Plan of Treatment Upcoming Encounters Date Type Specialty Care Team Description 03/13/2023 Office Visit Cardiology Ernie Boyle MD [address] [place] [address] [phone] (Wo rk) documented as of this encounter Procedures Procedure Name Priority Date/Time Associated Comments Diagnosis HPV DETECTION, HIGH Routine 06/15/2008 10:17 Resu lts for this RISK TYPES EDT procedure are i n the results section. CYTOPATHOLOGY Routine 06/15/2008 0:00 Results for this EDT procedure are i n the results section. documented in this encounter Results HUMAN PAPILLOMA VIRUS DNA TEST (06/15/2008 10:17 EDT) Specimen Description Cervix, ThinPrep [facility] vial Result Negative for HPV [facility] types 16, 18, 31, 33, 35, 39, 45, 51, 52, 56, 58, 59, and 68. Report Status Final [facility] [id number] Specimen Performing Organization Address City/State/ZIP Code Phon e Number [facility] [address] [place] [address] SERVICES [facility] [address] [place] [address] CYTOPATHOLOGY (06/15/2008 0:00 EDT) Pathology Report: CYTOPATHOLOGY REPORT ? [facility] ? LAB Reports generated via [employer] interface contain original data; ? however they are lacking the format of the original report. ? Caution should be taken when reading/interpreting unformatted reports. ? Name: ? LUKAS PETTIT ? Accession #: ? [id number] ? : ? 1940 (Age: 68) ??F ?Collect Date: ? 06/15/2008 ? Location: ? [facility] ? Receive Date: ? 06/16/2008 ? Provider: ?CIPRIANO M RO WLETT SOFTWARE PROJECT ENGINEER ? Copy to: ? Specimen/Source: ? ThinPrep Pap Test, Cervix/Endocervix, processed on Cytyc ThinPrep Imaging System, wit h manual evaluation ? Last Menstrual Period: ? 1993 ? Other: ? HPVDX - HPV testing requeste d regardless of diagnosis on current ThinPrep Pap ?? test. ? SPECIMEN ADEQUACY ? Satisfactory for Eval uation ? - assessment of transformati on zone component not applicable ( e.g. atrophy, ? vaginal sample, hysterectomy ) ? GENERAL CATEGORIZATION ? Negative for Intraepi thelial Lesion or Malignancy ? Document reviewed and electr onically signed by: ? Laila B. Jose, SCT( ASCP) ? Report Date: ??08/06/ 2008 15:03 ? End of Report ? Specimen Performing Organization Address City/State/ZIP Code Phon e Number [facility] [address] [place] [address] SERVICES [facility] [address] [place] [address] documented in this encounter Visit Diagnoses Not on filedocumented in this encounter
--- OUTSIDE RECORDS SUMMARY | 2022-09-01 00:46 | XMS_ITS | Encounter Summary ---
:1940 Author Organization [facility] Address [address] [place] [address] Care Team Providers Name Role Phone Unknown, Provider Primary Care Provider Reason for Visit Reason Comments Atrial Fibrillation Encounter Details Date Type Department Care Team Description 01/30/2020 Telemedicine [facility] - Ernie Boyle oxysmal atrial fibrillation ([facility]) (Primary Dx); [facility] Cardiology MD Fabio Mixed hyperlipidemia; Clinic [address] [facility] PAC (premature atrial contraction); [address] [place] [address] [address] [place] [address] [place], [place] [phone] Social History Tobacco Use Types Packs/Day Years Used Date Never Assessed Sex Assigned at Date Recorded Not on file documented as of this encounter Last Filed Vital Signs Vital Sign Reading Time Taken Comments Blood Pressure 120/76 01/31/2020 2238 EDT Pulse 60 01/31/2020 2238 EDT Temperature - - Respiratory Rate - - Oxygen Saturation - - Inhaled Oxygen Concentration - - Weight 70.5 kg (155 lb 8 oz) 01/31/2020 2238 EDT Height - - Body Mass Index - - documented in this encounter Progress Notes Tho Dolan - 01/30/2020 0945 EDT Pt sched for 01/25/21; 10:00 am. Pt aware Ernie Lopez MD - 01/30/2020 0945 EDT [facility] Cardiology Telephone Visit Verbal consent: The concept of ???Telemedicine?? has been described to the patient.? Patient has been informed of the anticipated benefits and possible risks.? Patient understands the information provided regarding telemedicine, has had the opportunity to ask questions about this information, and all questions have been answered to patient???s satisfaction. Patient consents for the use of telemedicine in his/her medical care and authorizes the transmission of any relevant medical information to providers and theirstaff involved in patient???s medical or mental health care. This visit was conducted via telephone. Subjective: Chief Complaint(s): Atrial Fibrillation HPI: 79-year-old woman with history of palpitations, diagnosed with paroxysmal atrial fibrillation 2018, recurrent ectopic atrial tachycardia, hyperlipidemia and history of hyperthyroidism. Anticoagulated with Eliquis and rate controlled with metoprolol. She is calling in today for a telephone visit for a 6-month follow-up. She reports doing very well. Her heart feels quiet, apart from occasional brief little flutters. She reports a single recent episode that lasted up to 20 minutes. She denies chest pain, shortness of breath, syncope, orthopnea, PND, edema, fevers, chills, digestive troubles. She has restless leg syndromes that is treated with carbidopa/levodopa. No issues with nose bleeding since a cauterization treatment. She uses MiraLAX for occasional constipation. 1 recent UTI treated with antibiotics successfully. Her lipids are checked by her PCP. Past medical history: Atrial tachycardia Hyperlipidemia Paroxysmal atrial fibrillation History of hypothyroidism Osteoarthritis left knee PAC Restless leg syndrome Snoring Past surgical history Appendectomy Left knee arthroplasty Cholecystectomy Colonoscopy 2018, no polyps. Meniscectomy Current Outpatient Medications on File Prior to Visit Medication Sig Dispense Refill ??? apixaban (ELIQUIS) 5 mg tablet Take by mouth 2 times daily. ??? carbidopa-levodopa (SINEMET) 10-100 mg per tablet Take 1 Tab by mouth 3 times daily. ??? cholecalciferol, Vitamin D3, 1,000 unit tablet Take 1,000 Units by mouth daily. ??? dextran 70-hypromellose (TEARS RENEWED) ophthalmic solution Place 2 Drops into both eyes 3 timesdaily as needed. ??? glucosam/chond-msm1/C/jose/bor (NELAXOKJYRJ-ZPDKD-ERA COMPLEX ORAL) Take by mouth. ??? hydrOXYzine (ATARAX) 10 mg tablet Take 10 mg by mouth 3 times daily as needed. ??? METOPROLOL TARTRATE ORAL Take 50 mg by mouth 2 times daily. ??? multivitamin (THERAGRAN) per tablet Take 1 Tab by mouth daily. ??? Ranitidine HCl 300 mg capsule Take by mouth. ??? simvastatin (ZOCOR) 20 mg tablet Take 20 mg by mouth at bedtime. No current facility-administered medications on file prior to visit. Social History: , lives with spouse, retired, volunteers at [employer], former smoker, quit ,no alcohol. Family history: Father at age 34, mother with depression, at age 47, suicide, sister at age 72, with rheumatoid arthritis, brain aneurysm, hyperlipidemia, stroke and hypertension. I have reviewed current problem list and current medications. ROS: A 10-system ROS was performed, pertinent items as mentioned in HPI, otherwise negative. ROS Objective: Examination: Vitals: (patient-provided) BP 120/76 Pulse 60 Wt 70.5 kg (155 lb 8 oz) There is no height or weight on file to calculate BMI. Physical Exam No patient-provided observations. Assessment & Plan: 1. Paroxysmal atrial fibrillation (HCC-CMS) 2. Mixed hyperlipidemia 3. PAC (premature atrial contraction) 4. Snoring 79-year-old woman with history of palpitations, diagnosed with paroxysmal atrial fibrillation 2018, recurrent ectopic atrial tachycardia, hyperlipidemia and history of hyperthyroidism. Anticoagulated with Eliquis and rate controlled with metoprolol. She reports doing very well today, without significant recurrence of atrial fibrillation. Blood pressure and heart rate appear to be in the right range. Her lipids are followed by her PCP. She adheres to heart healthy diet and tries to get enough exercise. Continue current medications, follow-up in 1 year. Patient initiated phone contact with the office Yes, Is an established patient (parent, guardian) Yes, E/M provided within previous 7 days for same Assessment No, Anticipate E/M service within 24hrs ornext available urgent appointment No, Time spent in medical discussion 11-20. Please include V3 modifier for Medicaid patients. Ernie Boyle MD documented in this encounter Plan of Treatment Upcoming Encounters Date Type Specialty Care Team Description 03/13/2023 Office Visit Cardiology Ernie Boyle MD [address] [facility] [address] [place], [place] [phone] (Wo rk) documented as of this encounter Visit Diagnoses Diagnosis Paroxysmal atrial fibrillation (HCC-CMS) (HCC) - Primary Atrial fibrillation Mixed hyperlipidemia PAC (premature atrial contraction) Supraventricular premature beats Snoring Other dyspnea and respiratory abnormalit y documented in this encounter Historical Medications This list may reflect changes made after this encounter. Medication Sig Dispensed Refills Start Date End Date apixaban (ELIQUIS) 5 mg Take by mouth 2 0 tablet times daily. dextran 70-hypromellose Place 2 Drops into 0 (TEARS RENEWED) ophthalmic both eyes 3 times solution daily as needed. simvastatin (ZOCOR) 20 mg Take 20 mg by mouth 0 tablet at bedtime. carbidopa-levodopa Take 1 Tab by mouth 0 (SINEMET) 10-100 mg per daily. tablet hydrOXYzine (ATARAX) 10 mg Take 10 mg by mouth 0 tablet daily. cholecalciferol, Vitamin Take 1,000 Units by 0 D3, 1,000 unit tablet mouth daily. glucosam/chond-msm1/C/jose Take by mouth. 0 /bor (DTWUVYPDQJY-EHXPU-UGB COMPLEX ORAL) multivitamin (THERAGRAN) Take 1 Tab by mouth 0 per tablet daily. Ranitidine HCl 300 mg Take by mouth. 0 01/25/2021 capsule METOPROLOL TARTRATE ORAL Take 50 mg by mouth 0 01/25/2021 2 times daily. added in this encounter Care Teams Document Specialist Relationship Specialty Start Date End Date Unknown, Provider, PCP - General 03/02/15 01/24/21 documented as of this encounter
--- OUTSIDE RECORDS SUMMARY | 2022-09-01 00:46 | XMS_ITS | Encounter Summary ---
:1940 Author Organization [facility] Address [address] [place] [address] Care Team Providers Name Role Phone Unavailable Primary Care Provider Unavailable Encounter Details Date Type Department Care Team Description 02/09/2003 Results Only [facility] - Anayeli Martinez NP conversion [address] [place] [address] Social History Tobacco Use Types Packs/Day Years Used Date Never Assessed Sex Assigned at Date Recorded Not on file documented as of this encounter Plan of Treatment Upcoming Encounters Date Type Specialty Care Team Description 03/13/2023 Office Visit Cardiology Ernie Boyle MD [address] [place] [address] [address] [place], [place] [phone] (Wo rk) documented as of this encounter Procedures Procedure Name Priority Date/Time Associated Diagnosis Comme [facility] CYTOPATHOLOGY Routine 02/09/2003 0:00 EST Results for this procedure are i n the results section . documented in this encounter Results CYTOPATHOLOGY (02/09/2003 0:00 EST) Pathology Report: CYTOPATHOLOGY REPORT [facility] Reports generated via electronic interface contain johnny ginal data; however they are lacking the format of the original re port. Caution should be taken when reading/interpreting unfo rmatted reports. Name: ? LEEANN PETTIT ? Accession #: ? [id number] : ? 1940 (Age: 62) ??F ?Collect Date: ? 01/12 Location: ? [facility] ? Receive Date : ? 02/11/2003 Provider: ?ANAYELI THOMAS COMMUNICATIONS MANAGER Copy to: ? Specimen/Source: ?ThinPrep Pap Test, Cervix/ Endocervix Last Menstrual Period: ? 1994 ? SPECIMEN ADEQUACY ? Satisfactory for Evaluation - assessment of transformation zone component not appl icable ( e.g. atrophy, vaginal sample, hysterectomy) GENERAL CATEGORIZATION ? Negative for Intraepithelial Lesion or Malignan cy ? Document reviewed and electronically signed by: ? LEÓN De Guzman(ASCP) ? Report Date: ??02/16/2003 09:32 End of Report Specimen Performing Organization Address City/State/ZIP Code Phon e Number [facility] [address] [place] [phone] SERVICES [facility] [address] [place] [address] documented in this encounter Visit Diagnoses Not on filedocumented in this encounter
--- OUTSIDE RECORDS SUMMARY | 2022-09-01 00:46 | XMS_ITS | Encounter Summary ---
:1940 Author Organization [facility] Address [address] [place] [address] Care Team Providers Name Role Phone Unknown, Provider Primary Care Provider Encounter Details Date Type Department Care Team Description 10/20/2015 Results Only [facility]- Nguyễn Mendoza MD [phone] [place] [address] [address] [place] [address] (Wo rk) Social History Tobacco Use Types Packs/Day Years Used Date Never Assessed Sex Assigned at Date Recorded Not on file documented as of this encounter Plan of Treatment Upcoming Encounters Date Type Specialty Care Team Description 03/13/2023 Office Visit Cardiology Ernie Boyle MD [address] [place] [address] [address] [place] [phone] (Wo rk) documented as of this encounter Procedures Procedure Name Priority Date/Time Associated Diagnosis Comme nts PAP TEST- RESULT Routine 10/20/2015 0:00 EST Resu lts for this ONLY procedure are i n the results section. documented in this encounter Results PAP TEST- RESULT ONLY (10/20/2015 0:00 EST) Pathology Report: CYTOPATHOLOGY REPORT [facility] Reports generated via electronic interface contain johnny ginal data; SERVICES however they are lacking the format of the original re port. Caution should be taken when reading/interpreting unfo rmatted reports. Name: ? LUKAS PETTIT ? Accession #: ? [id number] ? : ? 1940 (Age: [age]) ??F ?Collect Date: ? 10/20/2015 ? Location: ? [facility] ? Receive Date: ? 015 ? Provider: NGUYỄN CARTER MD Copy to: DEVIN RENTERIA MD ? Final Report SPECIMEN ADEQUACY ? Satisfactory for Evaluation - assessment of transformation zone component not appl icable ( e.g. atrophy, vaginal sample, hysterectomy) GENERAL CATEGORIZATION ? Negative for Intraepithelial Lesion or Malignan cy ?? Hormonal/Contraceptive status: None Other: Additional clinical information: CATALOGUE ILLUSTRATOR Clin ical/Treatment History - none Specimen/Source: ??Pap Test, Cervix/Endocervix, ThinPr ep Imaging System with manual evaluation Document reviewed and electronically signed by: ? Loni Watts, [facility](ASCP) ? Report ??Date: 10/25/2015 09:19 HPV with Pap Test ? Date Ordered: ? 10/25/2015 ? Status: ?? Signed Out ?Date Complete: ? 10/28/2015 ? By: ??S [employer]stem Interface ? Date Reported: ? 10/28/2015 ? Interpretation RESULT: Negative for HPV. No E6 or E7 mRNA is detected from HPV types 16,18,31,3 3,35, 39,45,51,52,56,58,59,66, and 68 by manager clinical applications media jakob amplification. Comments Document reviewed and electronically signed by: ? System Interface ? Report date: 10/28/2015 By the signature above, the attending physician certif ies that he/she has personally conducted a gross and/or microscopic examin ation of the described specimens and rendered or confirmed the above diagnosi s. End of Report Specimen Performing Organization Address City/State/ZIP Code Phon e Number [facility] [address] [place] [address] SERVICES documented in this encounter Visit Diagnoses Not on filedocumented in this encounter Care Teams Sales Operations Coordinator Relationship Specialty Start Date End Date Unknown, Provider, PCP - General 03/02/15 01/24/21 documented as of this encounter
--- OUTSIDE RECORDS SUMMARY | 2022-09-01 00:46 | XMS_ITS | Encounter Summary ---
:1940 Author Organization [facility] Address [address] [place] [address] Care Team Providers Name Role Phone Unknown, Provider Primary Care Provider Tatum Castano MD Primary Care Provider Encounter Details Date Type Department Care Team Description 10/19/2020 Lab Requisition [facility] Outr Resulting Lab, Pathology & Laboratory Provider [facility] [address] [place], [place] [address] Social History Tobacco Use Types Packs/Day Years Used Date Never Assessed Sex Assigned at Date Recorded Not on file documented as of this encounter Plan of Treatment Upcoming Encounters Date Type Specialty Care Team Description 03/13/2023 Office Visit Cardiology Ernie Boyle MD [address] [place] [phone] (Wo rk) documented as of this encounter Procedures Procedure Name Priority Date/Time Associated Comments Diagnosis DO NOT ORDER Today 10/19/2020 10:34 Results for this STANDALONE - [facility] EST procedure are in COVID TEST the results section. COVID-19 TESTING Routine 10/19/2020 10:34 Results for this EST procedure are i n the results section. documented in this encounter Results DO NOT ORDER STANDALONE - BROAD COVID TEST (10/19/2020 10:34 EST) COVID-19 rt-PCR NEGATIVE Negative [facility] Result Comment: LABORATORY 2019-novel Coronavirus (2019 -nCoV) not detected by the qRT-PCR assay. Consider testing for other respiratory viruses or re-collecting for 2019-nCoV testing. Note: Optimum timing for peak viral levels du ring infections caused by 20 19-nCoV have not been determined. Collection of multiple specimens from the same patient may be necessary to detect the virus. Limitations Positive results are indicat ashlie of active infection with SARS-CoV-2 but do not rule out bacterial infection or co-infection with other viruses. The agent detected may not be the definite cause of diseas e. In addition, detection of viral RNA may not indicate the presence of infectious virus or that SARS-CoV-2 is the causative agent for clinical symptoms. Negative results do not prec lude SARS-CoV-2 infection and should not be used as the sole basis for patient management decisions. Negative results must be combined with clinical observations, patient his tory, and epidemiological in formation. False negative results may also occur if amplification inhibitors are present in the specimen or if inadequate numbers of organisms are present in the specimen. Op timum specimen types and marcela ing for peak viral levels during infections caused by SARS-CoV-2 have not been fully determined. Collection of multiple specimens (types and time points) from the same patient may be necessary to detect the virus. The test was validated for u se with upper respiratory specimens obtained via nasopharyngeal or oropharyngeal swabs in VTM, UTM, M4, M5, M6, saline, and MTM media. The performance of this test has not be en established for other spe cimens. Specimens collected using other FDA recommended Specimen Collection Materials listed in the FDA COVID-19 [employer] communication (February 05, 2020) are pr ocessed with the caveat that they were not all validated for use with this test and the result must be interpreted in this context. Furthermore, a false negative results may occur if a specimen is improperly collected, transported or handled. If the virus mutates in the RT-PCR target region, SARS-CoV-2 may not be detected or may be detected less predictably. Inhibitors or other types of interference may produce a false negative result. An interference study evaluating the effect of common cold medications was not performed. This test is not FDA-cleared but its performance characteristics were established by our CLIA-certified, CAP-accredited, high complexity laboratory in accordance with CLIA regulations, [employer] (CAP) guidel isabel (Jan 29, 2020), and FDA guidance (Jan 10, 2020). This test is only for use un naeem the Food and Drug Administration's Emergency Use Authorization. Specimen Swab - Entire nasopharynx (body structur e) Performing Organization Address City/State/ZIP Code Phon e Number [facility] [place], [place] COVID-19 TESTING (10/19/2020 10:34 EST) COVID-19 rt-PCR NEGATIVE Negative [facility] Result Comment: LABORATORY 2019-novel Coronavirus (2019 -nCoV) not detected by the qRT-PCR assay. Consider testing for other respiratory viruses or re-collecting for 2019-nCoV testing. Note: Optimum timing for peak viral levels du ring infections caused by 20 -nCoV have not been determined. Collection of multiple specimens from the same patient may be necessary to detect the virus. Limitations Positive results are indicat ashlie of active infection with SARS-CoV-2 but do not rule out bacterial infection or co-infection with other viruses. The agent detected may not be the definite cause of diseas e. In addition, detection of viral RNA may not indicate the presence of infectious virus or that SARS-CoV-2 is the causative agent for clinical symptoms. Negative results do not prec lude SARS-CoV-2 infection and should not be used as the sole basis for patient management decisions. Negative results must be combined with clinical observations, patient his tory, and epidemiological in formation. False negative results may also occur if amplification inhibitors are present in the specimen or if inadequate numbers of organisms are present in the specimen. Op timum specimen types and marcela ing for peak viral levels during infections caused by SARS-CoV-2 have not been fully determined. Collection of multiple specimens (types and time points) from the same patient may be necessary to detect the virus. The test was validated for u se with upper respiratory specimens obtained via nasopharyngeal or oropharyngeal swabs in VTM, UTM, M4, M5, M6, saline, and MTM media. The performance of this test has not be en established for other spe cimens. Specimens collected using other FDA recommended Specimen Collection Materials listed in the FDA COVID-19 [employer] communication (February 05, 2020) are pr ocessed with the caveat that they were not all validated for use with this test and the result must be interpreted in this context. Furthermore, a false negative results may occur if a specimen is improperly collected, transported or handled. If the virus mutates in the RT-PCR target region, SARS-CoV-2 may not be detected or may be detected less predictably. Inhibitors or other types of interference may produce a false negative result. An interference study evaluating the effect of common cold medications was not performed. This test is not FDA-cleared but its performance characteristics were established by our CLIA-certified, CAP-accredited, high complexity laboratory in accordance with CLIA regulations, [employer] Pathologists (CAP) guidel isabel (Jan 29, 2020), and FDA guidance (Jan 10, 2020). This test is only for use un naeem the Food and Drug Administration's Emergency Use Authorization. Performing Lab [facility]AT[facility] SERVICES Specimen Swab Performing Organization Address City/State/ZIP Code Phon e Number [facility] [address] [place] [address] SERVICES [facility] [place], [place] documented in this encounter Visit Diagnoses Not on filedocumented in this encounter Care Teams Assistant Plant Control Operator Relationship Specialty Start Date End Date Unknown, Provider, PCP - General 03/02/15 01/24/21 Tatum Castano MD PCP - General 01/25/[address] [place] [address] [address] [place] [id number] documented as of this encounter
--- OUTSIDE RECORDS SUMMARY | 2022-09-01 00:46 | XMS_ITS | Encounter Summary ---
:1940 Author Organization [facility] Address [address] [place] [address] Care Team Providers Name Role Phone Tatum Castano MD Primary Care Provider Reason for Visit Reason Onset Date Comments Medication Questions 01/25/2021 Encounter Details Date Type Department Care Team Description 01/25/2021 Telephone [facility] - Ernie Boyle ication Questions [facility] MD Fabio [address] [place] [address] [address] [place] [phone] (Wo rk) Social History Tobacco Use Types Packs/Day Years Used Date Former Smoker Smokeless Tobacco: Never Used Sex Assigned at Date Recorded Not on file documented as of this encounter Functional Status Functional Status Response [...] making decisions? documented as of this encounter Miscellaneous Notes Telephone Encounter - Janes Kenney RN - 01/25/2021 9886 EDT Changed Carbidopa-levadopa to once daily. Hydroxyzine is prescribed as up to 3 x per day PRN, even though pt may be only taking it once daily, she can take it up to 3 x daily. I did not change the Hydroxyzine listing. elephone Encounter - Raymon Pearson - 01/25/2021 1443 EDT PT had appointment with Dr. Boyle earlier today and she was just looking at her medication list and two have incorrect dosage. Carbidopa-levodopa she only takes 1x daily Hydroxyzine is also 1x daily. She would like that fixed with correct dosage. documented in this encounter Plan of Treatment Upcoming Encounters Date Type Specialty Care Team Description 03/13/2023 Office Visit Cardiology Ernie Boyle MD [address] [place] [address] [address] [place] [address] (Wo rk) documented as of this encounter Visit Diagnoses Not on filedocumented in this encounter Care Teams Acid Correction Hand Relationship Specialty Start Date End Date Tatum Castano MD PCP - General 01/25/[address] [place] [phone] documented as of this encounter
--- OUTSIDE RECORDS SUMMARY | 2022-09-01 00:46 | XMS_ITS | Encounter Summary ---
:1940 Author Organization [facility] Address [address] [place] [address] Care Team Providers Name Role Phone Unavailable Primary Care Provider Unavailable Encounter Details Date Type Department Care Team Description 06/12/2007 Results Only [facility] - Anayeli Martinez NP conversion [address] [place] [address] Social History Tobacco Use Types Packs/Day Years Used Date Never Assessed Sex Assigned at Date Recorded Not on file documented as of this encounter Plan of Treatment Upcoming Encounters Date Type Specialty Care Team Description 03/13/2023 Office Visit Cardiology Ernie Boyle MD [address] [place] [address] [address] [place] [address] (Wo rk) documented as of this encounter Procedures Procedure Name Priority Date/Time Associated Diagnosis Comme [facility] CYTOPATHOLOGY Routine 06/12/2007 0:00 EDT Results for this procedure are i n the results section . documented in this encounter Results CYTOPATHOLOGY (06/12/2007 0:00 EDT) Pathology Report: CYTOPATHOLOGY REPORT [facility] Reports generated via electronic interface contain johnny ginal data; however they are lacking the format of the original re port. Caution should be taken when reading/interpreting unfo rmatted reports. Name: ? LEEANN PETTIT ? Accession #: ? [id number] : ? 1940 (Age: 67) ??F ?Collect Date: ? 11/2006 Location: ? [facility] ? Receive Date : ? 06/13/2007 Provider: ?ANAYELI THOMAS DIRECTOR OF CARDIOPULMONARY SERVICES Copy to: ? Specimen/Source: ? ThinPrep Pap Test, Cervix/Endocervix, processed on [employer] ThinPrep Imaging System, with manual evaluation Last Menstrual Period: ? 1994 Other: ? HPVA - HPV testing requested if ASC-US on the current ThinPrep Pap test. ? SPECIMEN ADEQUACY ? Satisfactory for Evaluation - assessment of transformation zone component not appl icable ( e.g. atrophy, vaginal sample, hysterectomy) GENERAL CATEGORIZATION ? Negative for Intraepithelial Lesion or Malignan cy ? Document reviewed and electronically signed by: ? LEÓN Saeed(ASCP) ? Report Date: ??06/18/2007 10:02 End of Report Specimen Performing Organization Address City/State/ZIP Code Phon e Number [facility] [address] [place] [address] SERVICES [facility] [address] [place] [address] documented in this encounter Visit Diagnoses Not on filedocumented in this encounter
--- OUTSIDE RECORDS SUMMARY | 2022-09-01 00:46 | XMS_ITS | Encounter Summary ---
:1940 Author Organization [facility] Address [address] [place] [address] Care Team Providers Name Role Phone Unavailable Primary Care Provider Unavailable Encounter Details Date Type Department Care Team Description 02/22/2004 Results Only [facility] - Anayeli Martinez NP conversion [address] [place], [place] [id number] Social History Tobacco Use Types Packs/Day Years Used Date Never Assessed Sex Assigned at Date Recorded Not on file documented as of this encounter Plan of Treatment Upcoming Encounters Date Type Specialty Care Team Description 03/13/2023 Office Visit Cardiology Ernie Boyle MD [address] [place] [address] [address] [place] [address] (Wo rk) documented as of this encounter Procedures Procedure Name Priority Date/Time Associated Diagnosis Comme [facility] CYTOPATHOLOGY Routine 02/22/2004 0:00 EDT Results for this procedure are i n the results section . documented in this encounter Results CYTOPATHOLOGY (02/22/2004 0:00 EDT) Pathology Report: CYTOPATHOLOGY REPORT [facility] Reports generated via electronic interface contain johnny ginal data; however they are lacking the format of the original re port. Caution should be taken when reading/interpreting unfo rmatted reports. Name: ? LEEANN PETTIT ? Accession #: ? [id number] : ? 1940 (Age: 63) ??F ?Collect Date: ? 02/10 Location: ? [facility] ? Receive Date : ? 02/23/2004 Provider: ?ANAYELI THOMAS MUFFLER MECHANIC Copy to: ? Specimen/Source: ?ThinPrep Pap Test, Cervix/ Endocervix Last Menstrual Period: ? 1994 ? SPECIMEN ADEQUACY ? Satisfactory for Evaluation - transformation zone component present GENERAL CATEGORIZATION ? Negative for Intraepithelial Lesion or Malignan cy ? Document reviewed and electronically signed by: ? LEÓN Rivera(ASCP) ? Report Date: ??02/25/2004 11:44 End of Report Specimen Performing Organization Address City/State/ZIP Code Phon e Number [facility] [address] [place] [address] SERVICES [facility] [address] [place] [address] documented in this encounter Visit Diagnoses Not on filedocumented in this encounter
--- OUTSIDE RECORDS SUMMARY | 2022-09-01 00:46 | XMS_ITS | Encounter Summary ---
:1940 Author Organization [facility] Address [address] [place] [address] Care Team Providers Name Role Phone Unavailable Primary Care Provider Unavailable Encounter Details Date Type Department Care Team Description 02/26/2015 Hospital Encounter [facility] - S Unknown, Pro Mary bond MD 1 [facility] [phone] [place] [address] (Work) [phone] Social History Tobacco Use Types Packs/Day Years Used Date Never Assessed Sex Assigned at Date Recorded Not on file documented as of this encounter Discharge Disposition Disposition Code Departure Means Destination Home or Self [facility] documented in this encounter Plan of Treatment Upcoming Encounters Date Type Specialty Care Team Description 03/13/2023 Office Visit Cardiology Ernie Boyle MD [address] [place] [address] [address] [place] [address] (Wo rk) documented as of this encounter Visit Diagnoses Not on filedocumented in this encounter
--- OUTSIDE RECORDS SUMMARY | 2022-09-01 00:46 | XMS_ITS | Encounter Summary ---
:1940 Author Organization [facility] Address [address] [place] [address] Care Team Providers Name Role Phone Unavailable Primary Care Provider Unavailable Encounter Details Date Type Department Care Team Description 08/14/2011 Results Only [facility] Prabhakar Fair, [facility] Laboratory Services - [address] Mell Fonseca [place], [place] [address] [facility] [address] [place] [address] [phone] Social History Tobacco Use Types Packs/Day Years Used Date Never Assessed Sex Assigned at Date Recorded Not on file documented as of this encounter Plan of Treatment Upcoming Encounters Date Type Specialty Care Team Description 03/13/2023 Office Visit Cardiology Ernie Boyle MD [address] [place] [address] [address] (Wo rk) documented as of this encounter Procedures Procedure Name Priority Date/Time Associated Diagnosis Comme nts PAP TEST- RESULT Routine 08/14/2011 0:00 EDT Resu lts for this ONLY procedure are i n the results section. documented in this encounter Results PAP TEST- RESULT ONLY (08/14/2011 0:00 EDT) Pathology Report: CYTOPATHOLOGY REPORT [facility] Reports generated via electronic interface contain johnny ginal data; however they are lacking the format of the original re port. Caution should be taken when reading/interpreting unfo rmatted reports. Name: ? LUKAS PETTIT ? Accession #: ? [id number] ? : ? 1940 (Age: 71) ??F ?Collect Da te: ? 08/14/2011 ? Location: ? [facility] ? Receive Date: ? 011 ? Provider: CIPRIANO THOMAS BODY WIRER Copy to: ? Final Report SPECIMEN ADEQUACY ? Satisfactory for Evaluation - assessment of transformation zone component not appl icable ( e.g. atrophy, vaginal sample, hysterectomy) - scant squamous epithelial component GENERAL CATEGORIZATION ? Negative for Intraepithelial Lesion or Malignan cy ?? Last Menstural Period: 1992 Specimen/Source: ??Pap Test, Cervix/Endocervix, ThinPr ep Imaging System with manual evaluation Document reviewed and electronically signed by: ? Henri Almonte, LEÓN(ASCP) ? Report ??Date: 08/18/2011 16:33 HPV with Pap Test ? Date Ordered: ? 08/18/2011 ? Status: ?? Signed Out ?Date Complete: ? 08/23/2011 ? By: ??S ystem Interface ? Date Reported: ? 08/23/2011 ? Interpretation RESULT: Negative for HPV types 16, 18, 31, 33, 35, 39, 45, 51, 52, 56, 58, 59, and 68. Comments Document reviewed and electronically signed by: ? System Interface ? Report date: 08/23/2011 By the signature above, the attending physician certif ies that he/she has personally conducted a gross and/or microscopic examin ation of the described specimens and rendered or confirmed the above diagnosi s. End of Report Specimen Performing Organization Address City/State/ZIP Code Phon e Number [facility] [address] [place] [address] SERVICES [facility] [address] [place] [address] documented in this encounter Visit Diagnoses Not on filedocumented in this encounter
--- OUTSIDE RECORDS SUMMARY | 2022-09-01 00:46 | XMS_ITS | Encounter Summary ---
:1940 Author Organization [facility] Address [address] [place] [address] Care Team Providers Name Role Phone Unavailable Primary Care Provider Unavailable Encounter Details Date Type Department Care Team Description 02/02/2000 Results Only [facility] - Anayeli Martinez NP conversion [address] [place] [address] Social History Tobacco Use Types Packs/Day Years Used Date Never Assessed Sex Assigned at Date Recorded Not on file documented as of this encounter Plan of Treatment Upcoming Encounters Date Type Specialty Care Team Description 03/13/2023 Office Visit Cardiology Ernie Boyle MD [address] [place] [address] [address] [place], [place] [phone] (Wo rk) documented as of this encounter Procedures Procedure Name Priority Date/Time Associated Diagnosis Comme [facility] CYTOPATHOLOGY Routine 02/02/2000 12:45 EST Result s for this procedure are i n the results section . documented in this encounter Results CYTOPATHOLOGY (02/02/2000 12:45 EST) Pathology Report: CYTOPATHOLOGY REPORT [facility] Reports generated via electronic interface contain johnny ginal data; however they are lacking the format of the original re port. Caution should be taken when reading/interpreting unfo rmatted reports. Name: ? LEEANN PETTIT ? Accession #: ? [id number] : ? 1940 (Age: 59) ??F ?Collect Date: ? 01/11 Location: ?Receive Date: ? 02/02/2000 Provider: ?ANAYELI THOMAS INSURANCE SALES REPRESENTATIVE Copy to: ?ANAYELI THOMAS INSURANCE SALES REPRESENTATIVE ? Specimen/Source: ?Pastry Wrapper ThinPrep Last Menstrual Period: ? GYNECOLOGIC ??CYTOPATHOLOG Y ??REPORT Name: LEEANN LOPES ? [facility] : 1940 ?? 59Y F ?Client ID: [id number] SS#: [id number] ? Ac cession #: [id number] Clinician: JULIA THOMAS NP ?? Location: [facility] ??Copy to: ?? Specimen: ?Pastry Wrapper ThinPrep ? Source: Cervix/Endocervix ?Collected: 02/01/00 ? Received: 02/02/2000 ?LMP: 1994 ? Hormone Therapy: Yes ? : No ? Radiation Therapy: No ?? Post : No ?Chemotherapy: No ?IUD: No ? Prev Abnormal Pap: No ?? Clinical Hx: HRT ?(Blank christopher indicate information not provided on requisition) SPECIMEN ADEQUACY: ? Satisfactory For Evaluation ?? GENERAL CATEGORIZATION: ? WITHIN NORMAL LIMITS ? Reviewed And Electronically Signed By: ? Julia Brunson, CT(ASCP) ? Report Date : ?? 02/09/2000 [employer] Archived Tests - Final Diagnosis Text Field: Clinical History : ;HRT ? Document reviewed and electronically signed by: ? Conversion ? Report Date: ??02/09/2000 00:00 End of Report Specimen Performing Organization Address City/State/ZIP Code Phon e Number [facility] [address] [place] [address] SERVICES [facility] [address] [place] [address] documented in this encounter Visit Diagnoses Not on filedocumented in this encounter
--- OUTSIDE RECORDS SUMMARY | 2022-09-01 00:46 | XMS_ITS | Encounter Summary ---
:[address] [facility] Address [address] [place] [address] Care Team Providers Name Role Phone Unavailable Primary Care Provider Unavailable Encounter Details Date Type Department Care Team Description 03/14/[address] Results [address] [facility] - Kait Green, Chr istopher, conversion DO [address] [place], [place] [phone] [place] [address] (Wo rk) Social History Tobacco Use Types Packs/Day Years Used Date Never Assessed Sex Assigned at Date Recorded Not on file documented as of this encounter Plan of Treatment Upcoming Encounters Date Type Specialty Care Team Description 03/13/2023 Office Visit Cardiology Ernie Boyle MD [address] [place] [address] [address] [place] [address] (Wo rk) documented as of this encounter Procedures Procedure Name Priority Date/Time Associated Diagnosis Comme [facility] SURGICAL PATHOLOGY Routine 03/14/2001 0:00 EDT Re sults for this procedure are i n the results section. documented in this encounter Results SURGICAL PATHOLOGY (03/14/2001 0:00 EDT) Pathology Report: SURGICAL PATHOLOGY REPORT [facility] Reports generated via electronic interface contain johnny ginal data; LAB however they are lacking the format of the original re port. Caution should be taken when reading/interpreting unfo rmatted reports. Name: ? LUKAS PETTIT ? Accession #: ? [id number] ? : ? 1940 (Age: 60) ??F ? Collect Date: ? 03/14/2001 ? Location: ? [facility] ? Receive Date: ? 001 ? Provider: NATHEN GREEN DO Copy to: KEILY BRO MD ? Final Pathologic Diagnosis: ? Gallbladder, cholecystectomy: 1. ?Chronic cholecystitis. 2. ?Cholelithiasis. 3. ?One lymph node with reactive changes. Document reviewed and electronically signed by: Mann Patel [facility] Report ??Date: 03/18/2001 17:56 By the signature above, the attending physician certif ies that he/she has personally conducted a gross and/or microscopic examin ation of the described specimens and rendered or confirmed the above diagnosi s. Specimen(s) Received: ? Gallbladder Clinical History: ? Biliary colic Gross Description: ? Received in formalin labelled Heidmann and gallbladder is a gallbladder with multiple, small, round, friable, green-yellow gallstones. ??The gallbladder measures 6.8 x 2.4 x 0.8 cm. ??The serosal surface is generally smooth and focally incised to reveal lumen surface that is granul ar with diffuse yellow flecks. ??The cystic duct is not present , but what appears to be a lymph node, grossly, is present at the o pening of the cystic duct. ??A utility sales representative section of the gallbladder along with the cystic duct ly mph node are submitted in one cassette. ??(Dr. Lauren)/arh [facility] End of Report Specimen Performing Organization Address City/State/ZIP Code Phon e Number [facility] [address] [place] [address] SERVICES [facility] [address] [place] [address] documented in this encounter Visit Diagnoses Not on filedocumented in this encounter
--- OUTSIDE RECORDS SUMMARY | 2022-09-01 00:46 | XMS_ITS | Encounter Summary ---
:1940 Author Organization [facility] Address [address] [place] [address] Care Team Providers Name Role Phone Unavailable Primary Care Provider Unavailable Encounter Details Date Type Department Care Team Description 02/26/2015 Results Only [facility] Evelio Green, DO [facility] [place] [address] (Wo rk) Social History Tobacco Use Types Packs/Day Years Used Date Never Assessed Sex Assigned at Date Recorded Not on file documented as of this encounter Plan of Treatment Upcoming Encounters Date Type Specialty Care Team Description 03/13/2023 Office Visit Cardiology Ernie Boyle MD [address] [place] [address] [address] [place] [address] (Wo rk) documented as of this encounter Procedures Procedure Name Priority Date/Time Associated Diagnosis Comme [facility] SURGICAL PATHOLOGY Routine 02/26/2015 18:03 Resul ts for this EDT procedure are i n the results section. documented in this encounter Results SURGICAL PATHOLOGY (02/26/2015 18:03 EDT) Pathology SURGICAL PATHOLOGY REPORT [facility] Report: Reports generated via electronic interface conta in original data; [facility] however they are lacking the format of the original re port. SERVICES Caution should be taken when reading/interpreting unfo rmatted reports. Name: ? LUKAS PETTIT ? Accession #: ? [id number] ? : ? 1940 (Age: 74) ??F ? Collect Date: ? 02/26/2015 ? Location: ? [facility] ? Receive Date: ? 015 ? Provider: EVELIO GREEN DO Copy to: DEVIN RENTERIA MD ? Final Pathologic Diagnosis: A. 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 ??See comment. B. 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 ??See comment. - ??Hyperplastic polyp. Comment: A single biopsy fragment is received in the specimen container labeled sigmoid polyps. 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 ??These findings can be associated with certain mutations incl uding BRAF mutations (generally seen with sessile serrated adenoma). ??Give n these findings close clinical follow-up is recommended. ??Rep resentative sections of this case were reviewed at the [facility]epartmental consultation [facility]. Dr. Ritter 03/01/2015 6:19 PM Document reviewed and electronically signed by: IRINEO RITTER MD Report ??Date: 03/01/2015 18:20 By the signature above, the attending physician certif ies that he/she has personally conducted a gross and/or microscopic examin ation of the described specimens and rendered or confirmed the above diagnosi s. Specimen(s) Received: A. ??Sigmoid polyps x2 (#1) B. ??Rectal polyps x2 (#2) Clinical History: Not listed Gross Description: A. ?Received in formalin labelled with proper p atient identification (initials H, S) and 1. sigm oid polyp x2 is a single neri-white tissue fragment (0.5 x 0.4 x 0.1 cm). Submitted intact in A1. ?? B. ?Received in formalin labelled with proper p atient identification (initials H, S) and 2. rectal polyps x2 is a t an focally brown firm sessile polyp (0.5 x 0.4 x 0.3 cm) and a separat e light neri sessile polyp (0.4 x 0.2 x 0.2 cm). ??The margins of ea ch polyp are inked. ??The larger polyp is bisected and submitted entirely in B1 and the smaller polyp is subm itted intact in B2. Dustin Salas 03/01/2015 8:32 AM End of Report Specimen Performing Organization Address City/State/ZIP Code Phon e Number [facility] [address] [place] [id number] SERVICES documented in this encounter Visit Diagnoses Not on filedocumented in this encounter
--- OUTSIDE RECORDS SUMMARY | 2022-09-01 00:46 | XMS_ITS | Encounter Summary ---
:1940 Author Organization [facility] Address [address] [place] [address] Care Team Providers Name Role Phone Unavailable Primary Care Provider Unavailable Encounter Details Date Type Department Care Team Description 03/28/2006 Results Only [facility] - Anayeli Martinez NP conversion [address] [place], [place] [id number] Social History Tobacco Use Types Packs/Day Years Used Date Never Assessed Sex Assigned at Date Recorded Not on file documented as of this encounter Plan of Treatment Upcoming Encounters Date Type Specialty Care Team Description 03/13/2023 Office Visit Cardiology Ernie Boyle MD [address] [place] [address] [address] [place] [address] (Wo rk) documented as of this encounter Procedures Procedure Name Priority Date/Time Associated Diagnosis Comme [facility] CYTOPATHOLOGY Routine 03/28/2006 0:00 EDT Results for this procedure are i n the results section . documented in this encounter Results CYTOPATHOLOGY (03/28/2006 0:00 EDT) Pathology Report: CYTOPATHOLOGY REPORT [facility] Reports generated via electronic interface contain johnny ginal data; however they are lacking the format of the original re port. Caution should be taken when reading/interpreting unfo rmatted reports. Name: ? LEEANN PETTIT ? Accession #: ? [id number] : ? 1940 (Age: 65) ??F ?Collect Date: ? 03/12 Location: ? [facility] ? Receive Date : ? 03/28/2006 Provider: ?ANAYELI THOMAS POWER LINE INSTALLER Copy to: ? Specimen/Source: ? ThinPrep Pap Test, Cervix/Endocervix, processed on [employer] ThinPrep Imaging System, with manual evaluation Last [...] Document reviewed and electronically signed by: ? BABITA Multani(ASCP) ? Report Date: ??03/30/2006 12:48 End of Report Specimen Performing Organization Address City/State/ZIP Code Phon e Number [facility] [address] [place] [address] SERVICES [facility] [address] [place] [address] documented in this encounter Visit Diagnoses Not on filedocumented in this encounter
--- NOTE | 2022-09-01 12:15 | DI.MAMMO_ITS ---
Exam(s) MAMMO SCREENING EXAM: MAMMO SCREENING CLINICAL HISTORY: screening. TECHNIQUE: Bilateral full field digital CC and MLO mammographic images were obtained with 3D tomosyn thesis and utilizing computer aided detection (CAD). COMPARISON: Prior mammograms were reviewed, the most recent being August 2021. FINDINGS: There has been no significant change in the appearance and distribution of the fibroglandular tissue. Small benign-appearing nodules in both breasts are unchanged and most probably represent benign intra mammary lymph nodes. There are no new spiculated masses nor malignant appearing microcalcification groups. There is no significant architectural distortion nor skin thickening-retraction. IMPRESSION: No radiographic evidence of malignancy. Stable benign-appearing findings. BI-RADS Category 2 - Benign Findings Breast Density - Category C - Heterogeneously dense Breast density Category C or D implies that the patient has dense breast tissue. Dense breast tissue can make it harder to find cancer on a mammogram. Dense breast tissue is also associated with an incr eased risk of breast cancer. This information about the result of the mammogram report was provided to the patient to raise their awareness. Use this report when you speak with the patient about their risks for breast cancer, which includes their family history. At that time, you may recommend additional screening tests (Ultrasoun d or MRI) as these tests may add significant information. A negative radiographic report should not delay biopsy if a dominant or clinically suspicious mass is present. Up to ten percent of cancers are not identified on mammography. A negative report may reinforce clinical impression. Adenosis and dense breasts may obscure an underlying neoplasm. False positive reports average 6 to 10%. Patient will receive a letter notifying them of these results.
== END ==
PROVIDERS: PCP Family Medicine; Visit Provider Obstetrics & Gynecology Gynecology
DX: Z12.31 Encounter for screening mammogram for malignant neoplasm of breast (principal); R92.8 Other abnormal and inconclusive findings on diagnostic imaging of breast
CPT/HCPCS: 77063; 77067

== ENCOUNTER 2022-11-28 02:10 | Outpatient (CLI) | payer MEDICARE, SELFPAY ==
--- NOTE | 2022-11-28 07:45 | DI.MRI_ITS ---
Exam(s) MR BRAIN WO EXAM: MR BRAIN WO CLINICAL HISTORY: persistent vertigo,,H81.4 TECHNIQUE: Multiplanar multisequence MRI of the brain was performed. Additional dedicated sub millimeters slice sequence through the internal auditory canals was performe d, given the history here. COMPARISON: No exams were available for comparison FINDINGS: CEREBRAL PARENCHYMA: There is no evidence of intracranial hemorrhage, mass effect, or shift of midline structures. There are no extra-axial fluid collections. Ventricles are not enlarged or shifted. There is no significant focal signal abnormality in the cerebellar hemispheres nor within the julius, m idbrain, and thalami. No evidence of cerebellar tonsillar ectopia. There is no abnormal signal abnormality in the periventricular white matter. There is no significant focal signal abnormality evident on diffusion imaging to suggest acute ischem ic event. IAC'S: No evidence of mass in the cerebellopontine angles and no evidence of intra canalicular acoust ic neuroma-schwannoma. The 7th and 8th cranial nerves appear unremarkable within the internal audito ry canals bilaterally. PITUITARY GLAND: No mass nor parasellar abnormality. No obvious abnormality in the cavernous sinuses. FLOW VOIDS: The expected flow void are noted. No evidence of obvious aneurysm nor obvious vascular ma lformation. PARANASAL SINUSES: The visualized paranasal sinuses appear unremarkable. No obvious finding ORBITS: No obvious findings. IMPRESSION: No significant intracranial findings on this noninfused MRI scan of the brain. No evidence of significant findings in the internal auditory canals. No evidence of acoustic neuroma -schwannoma. DATA REPOSITORY:
== END 2022-11-28 02:30 ==
PROVIDERS: PCP Family Medicine; Visit Provider Family Medicine
DX: H81.4 Vertigo of central origin (principal)
CPT/HCPCS: 70551

== ENCOUNTER → 2023-01-22 10:48 | Outpatient (BNVA) | payer MEDICARE, SELFPAY | PROVIDERS: PCP Family Medicine; Referring Provider Otolaryngology; Visit Provider Psychiatry & Neurology Neurology | DX: H81.12 Benign paroxysmal vertigo, left ear (principal) | CPT/HCPCS: 99214 ==

== ENCOUNTER 2023-03-05 00:42 | Outpatient (CLI) | payer MEDICARE, SELFPAY ==
--- NOTE | 2023-03-05 07:15 | DI.RAD_ITS ---
Exam(s) XR CERVICAL SPINE COMP 4-5V EXAM: XR CERVICAL SPINE COMP 4-5V CLINICAL HISTORY: intermittent arm weakness,tingling lt arm,r20.2,r20.0. TECHNIQUE: 2D digital imaging was performed. Six images were obtained. AP, odontoid, lateral and christiano ateral oblique images were obtained. COMPARISON: No priors for comparison. FINDINGS: The odontoid is intact. The lateral masses are well aligned. There is normal alignment of the cervi bruno spine. There is disc space narrowing at C4-5 and C5-C6. Endplate osteophytes are seen from C3-C4 through C6-C7. There are degenerative changes of the facets at multiple levels. No acute fracture or subluxation is present. No significant neural foraminal stenosis is present. The cervical thoraci c junction is well maintained. The prevertebral soft tissues are unremarkable. Lung apices are clear . IMPRESSION: Moderate cervical spondylosis. DATA REPOSITORY: RADIATION DOSE DELIVERED:
== END 2023-03-05 01:02 ==
LOC: DI 00:45
PROVIDERS: PCP Family Medicine; Visit Provider Family Medicine
DX: R20.0 Anesthesia of skin (principal); R20.2 Paresthesia of skin
CPT/HCPCS: 72050

== ENCOUNTER 2023-03-05 11:36 | Outpatient (CLI) | payer MEDICARE, SELFPAY ==
[2023-03-05 16:27] LABS: HCT 40.6 % (36.0-46.0); HGB 13.5 g/dL (11.2-15.7); MCHC 33.3 % (32.0-36.0); MCV 93 fL (80-95); MPV 9.8 fL (8.0-11.0); Platelet Count 245 10^3/uL (130-400); RBC 4.36 10^6/uL (3.93-5.22); RDW 12.1 % (11.7-14.6); RDW-SD 41.3 fL; WBC 8.39 10^3/uL (4.4-10.8)
[2023-03-05 16:39] LABS: Calculated LDL 91 mg/dL (<100); Cholesterol 167 mg/dL (<200); HDL Cholesterol 48 mg/dL (40-60); TSH (W/Ref FT4) 2.16 uIU/mL (0.36-3.74); Triglyceride 144 mg/dL (<150)
[2023-03-05 17:07] LABS: Anion Gap 5.1 mmol/L (3-11); BUN 16 mg/dL (7-18); CO2 32.9 mmol/L (21.0-32.0); CREATININE 1.2 mg/dL (0.55-1.02); Calcium 9.2 mg/dL (8.5-10.1); Chloride 104 mmol/L (98-107); Estimated GFR 45.76 (mL/min/1.73m2); Glucose 82 mg/dL (74-106); Potassium 4.2 mmol/L (3.5-5.1); Sodium 142 mmol/L (136-145)
[2023-03-05 17:16] LABS: Hemoglobin A1C 5.8 % (<5.7)
== END 2023-03-05 11:37 | disposition home or self-care (01) ==
LOC: LBO 11:36
PROVIDERS: Family Medicine; PCP Family Medicine; Visit Provider Family Medicine
DX: E03.9 Hypothyroidism, unspecified (principal); E78.5 Hyperlipidemia, unspecified; R53.83 Other fatigue; R73.03 Prediabetes; E87.1 Hypo-osmolality and hyponatremia
CPT/HCPCS: 36415; 80048; 80061; 85027; 83036; 84443

== ENCOUNTER → 2023-05-21 08:45 | Outpatient (BNVA) | payer MEDICARE, SELFPAY | PROVIDERS: PCP Family Medicine; Referring Provider Family Medicine; Visit Provider Student in an Organized Health Care Education/Training Program | DX: M65.321 Trigger finger, right index finger (principal); M65.351 Trigger finger, right little finger | CPT/HCPCS: 99213 ==

== ENCOUNTER 2023-06-12 12:59 | Day surgery (SDC) | payer MEDICARE, SELFPAY ==
--- NOTE | 2023-06-12 13:02 | PDOC.DSDIS_ITS ---
Date of service: 06/12/23 Time of Service: 13:02 Discharge Plan Disposition Patient Disposition: Home Condition: Good Discharge Details Reason For Visit: RIF RLL trigger release Attending Provider: Patrick Calderon Primary Care Provider: Cabrera Arvizu Home Meds and New Rx's Prescriptions: New acetaminophen 500 mg tablet 1,000 mg PO TID Qty: 90 0RF ibuprofen 600 mg tablet 600 mg PO TID PRN (Reason: pain) Qty: 90 0RF Continued vitamin B complex [B Complex-Vitamin B12] Tablet 1 tab PO DAILY turmeric 400 mg capsule 400 mg PO DAILY multivitamin 1 EACH tablet 1 ea PO DAILY Cosamin ASU 1 EACH capsule 1 ea PO DAILY cholecalciferol (vitamin D3) [Vitamin D3] 2,000 UNIT capsule 1,000 unit PO DAILY bisoprolol fumarate 5 mg tablet 5 mg PO BID Qty: 180 3RF simvastatin [Zocor] 20 mg tablet 20 mg PO HS Qty: 90 3RF Eliquis 5 mg tablet 5 mg PO BID Qty: 180 3RF hydroxyzine HCl 10 mg tablet 10 mg PO DAILY Qty: 90 3RF carbidopa-levodopa 10-100 mg tablet 1 tab PO QHS Qty: 90 3RF Discharge Instructions Stand Alone Forms: Kvng Duong Finger Release Referrals: Patrick Calderon MD [ [facility] STAFF PHYSICIAN] - Activity:: Activity as Tolerated Remove Dressings/Wound Care:: 48 hours Shower/Bathe:: 48 hours Diet:: As Tolerated Discharge Orders Discharge Orders: Discharge Order (Routine); Ordered 06/12/23 Ordered By: Reese Jurado DS: Diagnosis Discharge Diagnosis (1) Trigger finger, right index finger: Status: Acute (2) Trigger finger, right little finger: Status: Acute
[2023-06-12 13:33] VITALS: BP 147/68; PULSE 67; RESP 16; TEMP 36.6; O2SAT 97
[2023-06-12] MEDS: Lidocaine 1% Pres-Free W/EPI 1/200,000 30 ML VIAL (14:18)
[2023-06-12] MEDS: Sodium Bicarbonate 50 MEQ/50 ML VIAL (14:18)
[2023-06-12 14:45] VITALS: BP 134/70; PULSE 64; RESP 18; TEMP 36.5; O2SAT 95
--- NOTE | 2023-06-12 18:20 | W.PM.OP ---
Date of service: 06/12/23 Time of Service: 14:45 Operative Note Operative Note DATE OF PROCEDURE: 06/12/23 PRE-OP DIAGNOSIS: Right index and little finger trigger fingers POST-OP DIAGNOSIS: same PROCEDURE: Trigger Finger Release -right index and little finger SURGEON: Patrick Calderon ANESTHESIA TYPE: Local By Surgeon Refer to Anesthesia Record ESTIMATED BLOOD LOSS: 0 PATHOLOGY: none sent COMPLICATIONS: None Patient was transported to: same day Patient's condition: stable Indications: I have seen Leeann in clinic for symptoms of a trigger finger of both index finger and little finger of the right hand. The catching, clicking, locking, and pain limited function. The diagnosis of trigger finger was evident. The symptoms had not responded to conservative measures. I discussed trigger finger release with the patient. I reviewed the risks of the procedure to include, but not limited to, bleeding, infection, pain, stiffness, incomplete release, damage to nerves or vessels, continued catching, recurrence. Despite these risks, the patient elected to proceed. Findings: There was a tightened A1 octavio which was released. The flexor tendons were inspected and the patient was able to move the finger without any catching, clicking, or locking. There is significant amount of synovitis and thickened tenosynovium about the index finger flexor tendons. Procedure Description: Leeann was greeted in the preoperative holding area where the correct side was identified and marked. The consent was reviewed with the patient and signed. All questions were answered. She was taken back to the operating room. The patient was placed into the supine position on the operating room table with the right arm on an arm board. All bony prominences were well padded. No prophylactic antibiotics were administered since this was a clean, elective hand surgical case. The right arm was then prepped with Chloraprep and draped in a standard fashion with stockinette and extremity drape. A timeout to confirm correct identity, side and site, procedure, allergies, anesthesia, and medical concerns was performed. The surgical site was marked as a longitudinal incision directly over the A1 octavio of the index finger and within the distal flexion crease of the little finger. This was confirmed with palpation during finger flexion to be overlying the A1 octavio. This area, overlying the metacarpal head, was then anesthetized with 1% Lidocaine with epinephrine, buffered with sodium bicarbonate. The patient tolerated this well and once the anesthetic had setup, the procedure began. Starting with the little finger an incision was made through skin only, approximately 1cm. The deep tissues were dissected bluntly. Once the A1 octavio and flexor tendons were identified the soft tissue including neurovascular structures were retracted medially and laterally. There were no crossing structures over the A1 octavio. The proximal edge of the octavio was identified and the octavio was incised with tenotomy scissors. There was a release of the tendons once this was fully released. The tendons were then removed from the wound and inspected. Excess synovium was resected. The tendons were then returned and the patient was asked to move the finger into deep flexion and back to extension. Attention was then turned to the index finger. A longitudinal incision was made through skin only, approximately 1cm. The deep tissues were dissected bluntly. Once the A1 octavio and flexor tendons were identified the soft tissue including neurovascular structures were retracted medially and laterally. There were no crossing structures over the A1 octavio. The proximal edge of the octavio was identified and the octavio was incised with tenotomy scissors. There was a release of the tendons once this was fully released. There was a notable amount of fluid released after this. The tendons were then removed from the wound and inspected. Excess synovium was resected. There was a dense tenosynovium and thickened synovitis seen around the tendons. The tendons were then returned and the patient was asked to move the finger into deep flexion and back to extension. There was no recreation of the pre-operative symptoms. The hand was then once more inspected for any A0 octavio or area of possible constriction. The wound were then irrigated and the skin was closed with a 4-0 Nylon. This was dressed with gauze and a Conform dressing. The patient tolerated the procedure well and was returned to the Same Day Surgery area in a stable condition suffering no known complication.
== END 2023-06-12 15:15 | disposition home or self-care (01) ==
PROVIDERS: PCP Family Medicine; Visit Provider Student in an Organized Health Care Education/Training Program
PROC: (CPT 26055; principal; 2023-06-12 16:15)
DX: M65.321 Trigger finger, right index finger (principal); M65.351 Trigger finger, right little finger
CPT/HCPCS: 26055 ×2

== ENCOUNTER → 2023-06-21 11:27 | Outpatient (BNVA) | payer MEDICARE, SELFPAY | PROVIDERS: PCP Family Medicine; Referring Provider Family Medicine | DX: Z47.89 Encounter for other orthopedic aftercare (principal); M25.641 Stiffness of right hand, not elsewhere classified ==

== ENCOUNTER → 2023-09-18 00:14 | Outpatient (CLI) | payer MEDICARE, SELFPAY ==
--- NOTE | 2023-09-18 08:00 | DI.MAMMO_ITS ---
Exam(s) MAMMO SCREENING EXAM: MAMMO SCREENING CLINICAL HISTORY: screening,z12.39. TECHNIQUE: Bilateral full field digital CC and MLO mammographic images were obtained with 3D tomosyn thesis and utilizing computer aided detection (CAD). COMPARISON: Prior mammograms were reviewed. FINDINGS: There has been no significant change in the appearance and distribution of the fibroglandular tissue. Small benign-appearing intramammary lymph nodes both breasts again noted There are no new spiculated masses nor malignant appearing microcalcification groups. There is no significant architectural distortion nor skin thickening-retraction. IMPRESSION: No radiographic evidence of malignancy. BI-RADS Category 1 - Negative Breast Density - Category C - Heterogeneously dense Breast density Category C or D implies that the patient has dense breast tissue. Dense breast tissue can make it harder to find cancer on a mammogram. Dense breast tissue is also associated with an incr eased risk of breast cancer. This information about the result of the mammogram report was provided to the patient to raise their awareness. Use this report when you speak with the patient about their risks for breast cancer, which includes their family history. At that time, you may recommend additional screening tests (Ultrasoun d or MRI) as these tests may add significant information. A negative radiographic report should not delay biopsy if a dominant or clinically suspicious mass is present. Up to ten percent of cancers are not identified on mammography. A negative report may reinforce clinical impression. Adenosis and dense breasts may obscure an underlying neoplasm. False positive reports average 6 to 10%. Patient will receive a letter notifying them of these results.
== END ==
PROVIDERS: PCP Family Medicine; Visit Provider Obstetrics & Gynecology Gynecology
DX: Z12.31 Encounter for screening mammogram for malignant neoplasm of breast (principal); R92.333 Mammographic heterogeneous density, bilateral breasts
CPT/HCPCS: 77063; 77067

== ENCOUNTER → 2023-12-24 14:07 | Outpatient (BNVA) | payer MEDICARE, SELFPAY | PROVIDERS: PCP Family Medicine; Referring Provider Family Medicine; Visit Provider Student in an Organized Health Care Education/Training Program | DX: M65.332 Trigger finger, left middle finger (principal) | CPT/HCPCS: 99212 ==

== ENCOUNTER 2024-02-26 06:18 | Day surgery (SDC) | payer MEDICARE, SELFPAY ==
[2024-02-26 06:24] VITALS: BP 133/79; PULSE 69; RESP 16; TEMP 36.6; O2SAT 96
--- NOTE | 2024-02-26 07:09 | W.PM.DSUDISC ---
Date of service: 02/26/24 Time of Service: 07:10 Discharge Plan Disposition Patient Disposition: Home Condition: Good Discharge Details Reason For Visit: LMF Trigger Release Attending Provider: Patrick Calderon Primary Care Provider: Cabrera Arvizu Home Meds and New Rx's Prescriptions: New acetaminophen 500 mg tablet 1,000 mg PO TID Qty: 90 0RF ibuprofen 600 mg tablet 600 mg PO TID PRN (Reason: pain) Qty: 90 0RF Continued vitamin B complex [B Complex-Vitamin B12] Tablet 1 tab PO DAILY multivitamin 1 EACH tablet 1 ea PO DAILY Cosamin ASU 1 EACH capsule 1 ea PO DAILY cholecalciferol (vitamin D3) [Vitamin D3] 2,000 UNIT capsule 1,000 unit PO DAILY carbidopa-levodopa 10-100 mg tablet 1 tab PO QHS Qty: 90 3RF bisoprolol fumarate 5 mg tablet 5 mg PO BID Qty: 180 3RF simvastatin [Zocor] 20 mg tablet 20 mg PO HS Qty: 90 3RF Eliquis 5 mg tablet 5 mg PO BID Qty: 180 3RF hydroxyzine HCl 10 mg tablet 10 mg PO DAILY Qty: 90 3RF Discontinued acetaminophen 500 mg tablet 1,000 mg PO TID Qty: 90 0RF Discharge Instructions Stand Alone Forms: Kvng Duong Finger Release Referrals: Patrick Calderon MD [ [facility] STAFF PHYSICIAN] - Activity:: Activity as Tolerated Remove Dressings/Wound Care:: 48 hours Shower/Bathe:: 48 hours Diet:: As Tolerated Discharge Orders Discharge Orders: Discharge Order (Routine); Ordered 02/26/24 Ordered By: Reese Jurado DS: Diagnosis Discharge Diagnosis (1) Trigger finger, left middle finger: Status: Acute
[2024-02-26] MEDS: Sodium Bicarbonate 50 MEQ/50 ML VIAL (07:25)
[2024-02-26] MEDS: Lidocaine 1% Multi-Dose W/EPI 1/100,000 50 ML VIAL (07:25)
[2024-02-26 07:39] VITALS: BP 120/86; PULSE 64; RESP 16; TEMP 36.4; O2SAT 97
--- NOTE | 2024-02-26 08:54 | ROE_ITS ---
Date of service: 02/26/24 Time of Service: 07:25 Operative Note Operative Note DATE OF PROCEDURE: 02/26/24 PRE-OP DIAGNOSIS: Left Middle Trigger Finger POST-OP DIAGNOSIS: same PROCEDURE: Trigger Finger Release - Left Middle Finger SURGEON: Patrick Calderon ANESTHESIA TYPE: Local By Surgeon Refer to Anesthesia Record ESTIMATED BLOOD LOSS: 0 PATHOLOGY: none sent COMPLICATIONS: None Patient was transported to: same day Patient's condition: stable Indications: I have seen Leeann in clinic for symptoms of a trigger finger. The catching, clicking, locking, and pain limited function. The diagnosis of trigger finger was evident. The symptoms had not responded to conservative measures. I discussed trigger finger release with the patient. I reviewed the risks of the procedure to include, but not limited to, bleeding, infection, pain, stiffness, incomplete release, damage to nerves or vessels, continued catching, recurrence. Despite these risks, the patient elected to proceed. Findings: There was a tightened A1 octavio which was released. The flexor tendons were inspected and the patient was able to move the finger without any catching, clicking, or locking. Procedure Description: Leeann was greeted in the preoperative holding area where the correct side was identified and marked. The consent was reviewed with the patient and signed. All questions were answered. SHe was taken back to the operating room. The patient was placed into the supine position on the operating room table with the left arm on an arm board. All bony prominences were well padded. No prophylactic antibiotics were administered since this was a clean, elective hand surgical case. The left arm was then prepped with Chloraprep and draped in a standard fashion with stockinette and extremity drape. A timeout to confirm correct identity, side and site, procedure, allergies, anesthesia, and medical concerns was performed. The surgical site was marked as a longitudinal incision directly over the A1 octavio of the involved digit. This was confirmed with palpation during finger flexion. This area, overlying the metacarpal head, was then anesthetized with 1% Lidocaine. The patient tolerated this well and once the anesthetic had setup, the procedure began. A longitudinal incision was made through skin only, approximately 1cm. The deep tissues were dissected bluntly. Once the A1 octavio and flexor tendons were identified the soft tissue including neurovascular structures were retracted medially and laterally. There were no crossing structures over the A1 octavio. The proximal edge of the octavio was identified and the octavio was incised with tenotomy scissors. There was a release of the tendons once this was fully released. The patient was asked to move the finger into deep flexion and back to extension. There was no recreation of the pre- operative symptoms. The hand was then once more inspected for any A0 octavio or area of possible constriction. The wound was then irrigated and the skin was closed with a 4-0 Nylon. This was dressed with gauze and a Conform dressing. The patient tolerated the procedure well and was returned to the Same Day Surgery area in a stable condition suffering no known complication.
== END 2024-02-26 07:57 | disposition home or self-care (01) ==
PROVIDERS: PCP Family Medicine; Visit Provider Student in an Organized Health Care Education/Training Program
PROC: (CPT 26055; principal; 2024-02-26 07:30)
DX: M65.332 Trigger finger, left middle finger (principal)
CPT/HCPCS: 26055; J2004

== ENCOUNTER → 2024-03-06 10:36 | Outpatient (BNVA) | payer MEDICARE, SELFPAY | PROVIDERS: PCP Family Medicine; Referring Provider Family Medicine; Visit Provider Physician Assistant | DX: Z47.89 Encounter for other orthopedic aftercare (principal); M65.332 Trigger finger, left middle finger; M18.12 Unilateral primary osteoarthritis of first carpometacarpal joint, left hand ==

== ENCOUNTER 2024-03-10 05:47 | Outpatient (CLI) | payer MEDICARE, SELFPAY ==
[2024-03-10 15:29] LABS: Anion Gap 9.1 mmol/L (3-11); BUN 16 mg/dL (7-18); CO2 27.9 mmol/L (21.0-32.0); CREATININE 1.1 mg/dL (0.55-1.02); Calcium 9.3 mg/dL (8.5-10.1); Calculated LDL 109 mg/dL (<100); Chloride 104 mmol/L (98-107); Cholesterol 180 mg/dL (<200); Estimated GFR 50.48 (mL/min/1.73m2); Glucose 105 mg/dL (74-106); HDL Cholesterol 53 mg/dL (40-60); Potassium 4.7 mmol/L (3.5-5.1); Sodium 141 mmol/L (136-145); Triglyceride 93 mg/dL (<150)
== END 2024-03-10 05:48 | disposition home or self-care (01) ==
LOC: LBO 05:47
PROVIDERS: PCP Family Medicine; Visit Provider Family Medicine
DX: E87.1 Hypo-osmolality and hyponatremia; E11.51 Type 2 diabetes mellitus with diabetic peripheral angiopathy without gangrene; I70.203 Unspecified atherosclerosis of native arteries of extremities, bilateral legs
CPT/HCPCS: 36415; 80048; 80061; 83036; 84443

== ENCOUNTER 2024-05-05 10:33 | Outpatient (CLI) | payer MEDICARE, SELFPAY ==
--- NOTE | 2024-05-05 09:33 | DI.RAD_ITS ---
Exam(s) XR KNEE RT 3V AP,LAT,LUCIANO EXAM: XR KNEE RT 3V AP,LAT,LUCIANO CLINICAL HISTORY: right knee pain. TECHNIQUE: 2D digital imaging was performed of the right knee. Three views obtained. AP, lateral an d PA tunnel views were obtained. COMPARISON: CR XR knee RT 2V AP,lat from 08/13/2018 FINDINGS: BONES: No acute fracture is present. No bony destructive lesion is seen. JOINTS: There is moderate narrowing in the medial femoral tibial joint. There is chondrocalcinosis s een in the lateral femoral tibial joint. There are small osteophytes in all 3 joint compartments. T here is a small joint effusion present. SOFT TISSUE: Normal. IMPRESSION: [id number] arthrosis of the right knee. Small joint effusion. DATA REPOSITORY: RADIATION DOSE DELIVERED:
== END 2024-05-05 10:34 | disposition home or self-care (01) ==
LOC: DIORS 10:34
PROVIDERS: PCP Family Medicine; Referring Provider Family Medicine; Visit Provider Student in an Organized Health Care Education/Training Program
DX: M17.11 Unilateral primary osteoarthritis, right knee
CPT/HCPCS: 73562; 99213

== ENCOUNTER 2025-01-01 00:41 | Outpatient (CLI) | payer MEDICARE, SELFPAY ==
--- NOTE | 2025-01-01 13:12 | DI.MAMMO_ITS ---
Exam(s) MAMMO SCREENING EXAM: MAMMO SCREENING CLINICAL HISTORY: screening,z12.39 TECHNIQUE: Bilateral full field digital CC and MLO mammographic images were obtained with 3D tomosyn thesis and utilizing computer aided detection (CAD). COMPARISON: Available for comparison. FINDINGS: Masses/Architectural Distortion: None seen. Microcalcifications: No suspicious pleomorphic-type are seen. Skin Thickening/Nipple Retraction: None. IMPRESSION: 1. No significant interval change with no specific features of malignancy noted. 2. Unless there is more urgent need, screening mammography is recommended, as per [employer] guidelines. BI-RADS Category 1 - Negative Breast Density - Category C - Heterogeneously dense Breast density category C or D implies that the patient has dense breast tissue. Dense breast tissue is very common and is not abnormal but dense breast tissue can make it harder to find cancer on a ma mmogram. Also, dense breast tissue may increase their breast cancer risk. This information about the result of the mammogram report was provided to the patient to raise their awareness. Use this report when you speak with the patient about their risks for breast cancer, which includes their family hist ory. At that time, you may recommend for more screening tests (Ultrasound or MRI) as they might be us eful based on their risk. A negative radiographic report should not delay biopsy if a dominant or clinically suspicious mass is present. Up to ten percent of cancers are not identified on mammography. A negative report may reinforce clinical impression. Adenosis and dense breasts may obscure an underlying neoplasm. False positive reports average 6 to 10%. Patient will receive a letter notifying them of these results.
== END 2025-01-01 01:01 ==
LOC: DI 00:41
PROVIDERS: PCP Family Medicine; Visit Provider Obstetrics & Gynecology Gynecology
DX: Z12.31 Encounter for screening mammogram for malignant neoplasm of breast (principal); R92.333 Mammographic heterogeneous density, bilateral breasts
CPT/HCPCS: 77063; 77067

== ENCOUNTER 2025-01-15 12:28 | Outpatient (REF) | payer MEDICARE, SELFPAY ==
[2025-01-15 15:09] LABS: Bacteria Many HPF (Negative); Crystals Negative HPF (Negative); Epithelial Cells Negative HPF (Negative); Mucus Negative (Negative); Other Cells Negative (Negative); RBC >50 HPF (0-2); WBC >50 HPF (0-5)
[2025-01-15 15:10] LABS: C & S Indicated? C&S Done As Ordered; Casts Negative LPF (Negative)
== END 2025-01-15 12:29 | disposition home or self-care (01) ==
LOC: LBN 12:28
PROVIDERS: PCP Family Medicine; Visit Provider Physician Assistant Medical
DX: R30.0 Dysuria (principal)
CPT/HCPCS: 87077; 81015; 87086; 87186

== ENCOUNTER 2025-03-05 10:14 | Outpatient (CLI) | payer MEDICARE, SELFPAY ==
[2025-03-05 12:11] LABS: HCT 41.2 % (36.0-46.0); HGB 13.8 g/dL (11.2-15.7); MCH 32.3 pg (27.0-33.0); MCHC 33.5 % (32.0-36.0); MCV 97 fL (80-95); Platelet Count 243 10^3/uL (130-400); RBC 4.27 10^6/uL (3.93-5.22); RDW 12.9 % (11.7-14.6); RDW-SD 41.8 fL
[2025-03-05 12:29] LABS: CREATININE 0.9 mg/dL (0.55-1.02); Estimated GFR 63.83 (mL/min/1.73m2)
== END 2025-03-05 10:15 | disposition home or self-care (01) ==
PROVIDERS: PCP Family Medicine; Referring Provider Family Medicine; Visit Provider Family Medicine
DX: R73.9 Hyperglycemia, unspecified (principal); I10 Essential (primary) hypertension; R53.83 Other fatigue
CPT/HCPCS: 36415; 85027; 82565; 83036

== ENCOUNTER 2025-03-11 17:31 | Emergency (ER) | payer MEDICARE, SELFPAY ==
[2025-03-11 17:39] VITALS: BP 168/91; PULSE 67; RESP 24; TEMP 36.4; O2SAT 95
--- NOTE | 2025-03-11 19:00 | DI.RAD_ITS ---
Exam(s) XR WRIST RT COMPL NAVICULAR EXAM: XR WRIST RT COMPL NAVICULAR CLINICAL HISTORY: fall, r wrist injury. TECHNIQUE: 2D digital imaging was performed of the right wrist. Four views were obtained. Scaphoid, PA, lateral and oblique views were obtained. COMPARISON: No exams were available for comparison FINDINGS: BONES: No acute fracture is present. No bony destructive lesion is seen. JOINTS: The carpal bones are normally aligned. SOFT TISSUE: Normal. IMPRESSION: 1. No acute fracture or dislocation. 2. The preliminary [facility] report was reviewed. DATA REPOSITORY: RADIATION DOSE DELIVERED:
[2025-03-11 19:15] VITALS: BP 144/82; PULSE 64; TEMP 36.7; O2SAT 95
--- NOTE | 2025-03-11 20:14 | DI.[facility]_ITS ---
PROCEDURE INFORMATION: Exam: XR Right Wrist Exam date and time: 03/11/2025 7:48 PM Age: 84 years old Clinical indication: Pain; Right; Fall, R wrist injury TECHNIQUE: Imaging protocol: Radiologic exam of the right wrist. Views: 3 or more views. COMPARISON: No relevant prior studies available. FINDINGS: Bones/joints: Normal. Soft tissues: Normal. IMPRESSION: No acute findings. Dictated and Authenticated by: Doyle Luu MD. Orderin Rissa Garces MD
--- NOTE | 2025-03-11 20:34 | ED.GENADUL_ITS ---
Discharge Plan Disposition Patient Disposition: Home Condition: Stable Discharge Details Clinical Impression: Sprain of right wrist Primary Care Provider: Cabrera Arvizu ED Provider: Dez Kwok Home Meds and New Rx's Prescriptions: Continued bisoprolol fumarate 5 mg tablet 5 mg PO BID Qty: 180 3RF carbidopa-levodopa 10-100 mg tablet 1 tab PO QHS Qty: 90 3RF vitamin B complex [B Complex-Vitamin B12] Tablet 1 tab PO DAILY multivitamin 1 EACH tablet 1 ea PO DAILY Cosamin ASU 1 EACH capsule 1 ea PO DAILY cholecalciferol (vitamin D3) [Vitamin D3] 2,000 UNIT capsule 1,000 unit PO DAILY simvastatin [Zocor] 20 mg tablet 20 mg PO HS Qty: 90 3RF Eliquis 5 mg tablet 5 mg PO BID Qty: 180 3RF hydroxyzine HCl 10 mg tablet 10 mg PO DAILY Qty: 90 3RF ibuprofen 600 mg tablet 600 mg PO TID PRN (Reason: pain) Qty: 90 0RF Discharge Instructions Instructions: Wrist Sprain ED Additional Instructions: You were seen in the emergency department for your fall with right wrist injury, there is no fracture seen on x-ray, please use the provided wrist brace for comfort, please rest, ice, compress and elevate, take adequate dosing of Tylenol, please follow-up with orthopedics for persistent pain lasting longer than 2 weeks. Referrals: [facility] [Provider Group] Cabrera Arvizu MD [Primary Care Provider] - Discharge Data Discharge Date/Time-TO BE ENTERED AT DEPARTURE: 03/11/25 21:01 HPI General Date/Time Provider Initiated Documentation: 03/11/25 17:42 . HPI Narrative: 84 year-old female presents to ED today by POV/ambulating with a chief complaint of trip and fall falling to her right hand with onset today. Quality described as bruising to the right palm and wrist, no radiation to chest pain or palpitations prior to fall, dizziness, shortness of breath, states that she merely tripped and fell, no other trauma reported. Severity is described as moderate. Palliating factors include nothing specific attempted. Provoking factors include certain movements but she is overall moving it very well without pain hours after the incident. Patient is anticoagulated. Related Data Home Medications ?Medication ?Instructions ?Recorded ?Confirmed multivitamin 1 ea PO DAILY 01/20/13 03/11/25 glucosamine 375 mg-chondroitin sul 1 ea PO DAILY 01/09/14 03/11/25 A 200 mg-herb no.182 100 mg capsule (Cosamin ASU) cholecalciferol (vitamin D3) 50 1,000 unit PO DAILY 01/13/15 03/11/25 mcg (2,000 unit) capsule (Vitamin D3) vitamin B complex (B 1 tab PO DAILY 07/26/21 03/11/25 Complex-Vitamin B12 tablet) ibuprofen 600 mg tablet 600 mg PO TID PRN pain #90 tabs 02/26/24 03/11/25 simvastatin 20 mg tablet (Zocor) 20 mg PO HS #90 tab-caps 09/06/24 03/11/25 apixaban 5 mg tablet (Eliquis) 5 mg PO BID #180 tabs 12/04/24 03/11/25 hydroxyzine HCl 10 mg tablet 10 mg PO DAILY #90 tabs 01/05/25 03/11/25 bisoprolol fumarate 5 mg tablet 5 mg PO BID #180 tabs 03/05/25 03/11/25 carbidopa 10 mg-levodopa 100 mg 1 tab PO QHS #90 tabs 03/05/25 03/11/25 tablet Previous Rx's ?Medication ?Instructions ?Recorded ibuprofen 600 mg tablet 600 mg PO TID PRN pain #90 tabs 02/26/24 simvastatin 20 mg tablet (Zocor) 20 mg PO HS #90 tab-caps 09/06/24 apixaban 5 mg tablet (Eliquis) 5 mg PO BID #180 tabs 12/04/24 hydroxyzine HCl 10 mg tablet 10 mg PO DAILY #90 tabs 01/05/25 bisoprolol fumarate 5 mg tablet 5 mg PO BID #180 tabs 03/05/25 carbidopa 10 mg-levodopa 100 mg 1 tab PO QHS #90 tabs 03/05/25 tablet Allergies Allergy/AdvReac Type Severity Reaction Status Date / Time codeine AdvReac ITCHY NOSE Verified 03/11/25 17:42 General Stated Complaint: Orthopedic MARIA L: 4 Review of Systems All systems reviewed & are unremarkable except as noted in HPI and below Exam Narrative Exam Narrative: GENERAL APPEARANCE: Well-nourished, non-toxic, awake and alert, atraumatic, no acute distress. SKIN: Warm, pink, dry, intact, without rashes/lesions/ulcerations. HEAD: Normocephalic, atraumatic, normal hair distribution for gender/age. EYES: Normal conjunctiva, no exudates on lids/lashes. ENT: Nares patent, no circumoral cyanosis, no facial swelling NECK: Supple, trachea midline, painless cervical ROM. LUNGS/CHEST: Non-labored respirations, normal A/P diameter, symmetrical expansion, no chest wall deformity HEART (CV/PV): No peripheral edema, no JVD. ABDOMEN: Soft, non-distended, no guarding. MSK: Normal ROM, no swelling/deformity to bilateral UEs or LEs, moving all extremities without weakness, no cyanosis, spine midline without tenderness, normal curvature, right wrist has no tenderness, no anatomical snuffbox tenderness mild ecchymosis to right thenar eminence, strength 5/5 in all fingers and hand, jukebox routeman strength 5/5, sensation intact NEURO: Mental Status AAOx4 - alert to person, place, time, events No facial droop, no forehead involvement. Motor: No focal weakness - strength 5/5 in bilateral UEs and LEs, proximal and distal, symmetric. Sensory: sensation intact to light touch globally. Gait normal: patient ambulated without ataxia into ED room. PSYCH: euthymic, cooperative, pleasant, appropriate speech Course Vital Signs Vital signs: Vital Signs Temperature 36.4 C 03/11/25 17:39 Pulse 67 03/11/25 17:39 Respiratory Rate 24 03/11/25 17:39 Blood Pressure 168/91 H 03/11/25 17:39 Pulse Oximetry 95 03/11/25 17:39 Temperature 36.7 C 03/11/25 19:15 Temperature Source Tympanic 03/11/25 19:15 Pulse 64 03/11/25 19:15 Respiratory Rate 24 03/11/25 17:39 Blood Pressure 144/82 H 03/11/25 19:15 Blood Pressure Mean 102 03/11/25 19:15 Blood Pressure Position Sitting 03/11/25 17:39 Pulse Oximetry 95 03/11/25 19:15 Oxygen Delivery Method Room Air 03/11/25 19:15 Oxygen Flow Rate 0 03/11/25 19:15 Pain Level 0 03/11/25 19:15 Medical Decision Making This dictation utilizes [id number] dictation software and may contain unedited grammatical errors. 84 year-old female presents to ED today by POV/ambulating with a chief complaint of trip and fall falling to her right hand with onset today. Quality described as bruising to the right palm and wrist, no radiation to chest pain or palpitations prior to fall, dizziness, shortness of breath, states that she merely tripped and fell, no other trauma reported. Severity is described as moderate. Palliating factors include nothing specific attempted. Provoking factors include certain movements but she is overall moving it very well without pain hours after the incident. Patients' medical history: Vertigo arthritis, paroxysmal atrial fibrillation, hyperlipidemia. Family and social history: Noncontributory. Pertinent exam findings / vital signs include bruising to the right thenar eminence, [id number], right radial pulse 2+, range of motion intact, no crepitus, no anatomical snuffbox tenderness. Differential / pathologies of concern include fracture, contusion, sprain. Diagnostic studies of: - XR R wrist-no acute fracture seen. Interventions of: - Patient declined wrist brace. ED Course/Assessment/Plan: 84-year-old female had a trip and fall earlier today had some bruising to the right palm area on blood thinners but has no evidence of fracture, denies other trauma has been neuro vascularly intact 4 hours since the incident, she is moving very well states it improved over the day, counseled her on taking adequate dose of Tylenol and following up with orthopedics for any persistent pa in. Findings not consistent with fracture or neurovascular compromise. Disposition of sprain of right wrist. Patient verbalized understanding of the plan and return to ED criteria and engaged in shared decision making. Medical Records Medical records reviewed: Yes I reviewed the patient's medical records. Imaging Data Radiologic Study: Attestation: I personally reviewed and interpreted this imaging study as follows: Imaging: X-Ray Radiologist's impression: Exam: XR Right Wrist Exam date and time: 03/11/2025 7:48 PM Age: 84 years old Clinical indication: Pain; Right; Fall, R wrist injury TECHNIQUE: Imaging protocol: Radiologic exam of the right wrist. Views: 3 or more views. COMPARISON: No relevant prior studies available. FINDINGS: Bones/joints: Normal. Soft tissues: Normal. IMPRESSION: No acute findings. Dictated and Authenticated by: Doyle Luu MD. Quality:SDOH Health Related Social Needs: No Data to Display PFSH All Active Problems Sprain of right wrist (Acute) Osteoarthritis of right knee (Acute) Arthritis of carpometacarpal (CMC) joint of left thumb (Acute) Trigger finger, left middle finger (Acute) S/P Release: 02/26/2024 Actinic keratosis (Acute) Gynecologic exam normal (Acute) Numbness and tingling in left arm (Acute) Vertigo (Acute) Benign paroxysmal positional vertigo of left ear (Acute) Benign paroxysmal positional vertigo, bilateral (Acute) Hammertoe (Acute) Pain in toe (Acute) Corns and callosities (Acute) COVID-19 (Acute ~11/22/22) Hypoestrogenism (Acute) Colon polyps (Acute) 02/26/15; SERRATED LESION (q 3years) 2018: colono. pending- Hyperlipidemia (Acute 07/28/13) Osteoarthritis of knee (Acute) S/P left knee arthroscopy 2016: /partial medial and lat. menicectomy Restless legs (Acute) Sinus tachycardia (Acute 04/01/18) Paroxysmal atrial fibrillation (Chronic) Dx 2018. On chronic anticoagulation Raynauds phenomenon (Chronic) Obstructive sleep apnea syndrome in adult (Acute) Hyperthyroidism (Acute 09/04/11) Herpes simplex (Acute) Allergic rhinitis (Acute) POLST (Physician Orders for Life-Sustaining Treatment) (Acute) Recurrent low back pain (Acute) tx with PT Chronic urticaria (Acute) 01/2022-History of recurrent urticaria, well managed with low-dose daily hydroxyzine. Patient on this for years with good tolerability. Flare of urticaria with attempt to titrate off Hyperlipidemia (Acute) Low back pain (Acute) Trigger finger, right index finger (Acute) S/P Release: 06/12/2023 Trigger finger, right little finger (Acute) S/P Release: 06/12/2023 Medical History Vertigo Hematuria 2020. Nl cystoscopy. Urethral caruncle treated with E2. Sx resolved 2021. Impacted cerumen of both ears Conductive hearing loss Surgical History Trigger finger, right middle finger s/p trigger release DOS: 06/09/22 History of surgery on wrist Hx of knee surgery Pt denies this. She states she broke her patella, no surgery, just had to be in a knee imobilizer.HE Hx of colonoscopy Hx of appendectomy Hx of cholecystectomy Family History Mother , SUICIDE at age 47. Depression Father , AGE 34 No problems noted. Sister , AGE 72 RA (rheumatoid arthritis) Brain aneurysm Hyperlipidemia Stroke Hypertension Daughter , 59 Alcohol use disorder Heart disease Substance use disorder Social History Smoking/Tobacco Use Status: Never Second Hand Exposure: Yes Smoking risk assessment performed?: Yes Alcohol Intake: former Drug use: Never Substance use type: does not use Counseling given: No Adopted: No Caregiver/Support person: No Household members: spouse and other Details: H- Regan. Has bladder CA. 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 Pets and animals: Yes Pets and animals: cat(s) Sexually active: No Do you think of yourself as: straight/heterosexual Current gender identity: female What is your relationship status?: How often do you talk on the phone with friends or family?: three or more times per week How often do you get together with friends or relatives?: once per week How often do you attend zoroastrianism or hinduism services?: 1-3 times per year Do you belong to any clubs or organized social groups?: yes Panel score (0-1 are the most socially isolated patients): 3 What type of physical activity do you participate in: walking and yoga Duration: 15-30 minutes/day Frequency: 5-6 times per week Theodora/Caodaism: Christian Special theodora needs: No Seatbelt use: always Helmet use: Yes Helmet use: always Drive intox or ride w/intox power truck driver: No Firearms in home: No Do you feel safe at home: Yes Do you feel safe in your relationship?: Yes Would you like helpful sources: No
== END 2025-03-11 21:01 | disposition home or self-care (01) ==
PROVIDERS: Emergency Provider Physician Assistant; PCP Family Medicine
DX: S63.501A Unspecified sprain of right wrist, initial encounter (principal); E78.5 Hyperlipidemia, unspecified; E03.9 Hypothyroidism, unspecified; Z79.01 Long term (current) use of anticoagulants; W01.0XXA Fall on same level from slipping, tripping and stumbling without subsequent striking against object, initial encounter; Y93.01 Activity, walking, marching and hiking; Y92.89 Other specified places as the place of occurrence of the external cause
CPT/HCPCS: 99283; 73110

== ENCOUNTER 2025-04-10 07:45 | Emergency (ER) | payer MEDICARE, SELFPAY ==
[2025-04-10 07:47] VITALS: BP 149/70; PULSE 76; RESP 15; TEMP 35.8; O2SAT 96
[2025-04-10 07:50] VITALS: BP 149/70; PULSE 76; RESP 15; TEMP 35.8; O2SAT 96
[2025-04-10 08:11] LABS: Bilirubin Negative (Negative); Blood Large (Negative); Clarity Cloudy (Clear); Glucose 100 mg/dL (Negative); Ketones Negative (Negative); Leukocyte Esterase Moderate (Negative); Nitrite Negative (Negative); Specific Gravity 1.025 (1.005-1.025); Urobilinogen 0.2 mg/dL (Up to 0.2)
[2025-04-10 08:19] LABS: RBC >50 HPF (0-2); WBC 20-50 HPF (0-5)
--- NOTE | 2025-04-10 08:19 | W.ED.GENAD ---
Discharge Plan Disposition Patient Disposition: Home Condition: Stable Discharge Details Clinical Impression: Acute UTI Primary Care Provider: Cabrera Arvizu ED Provider: Mk Giordano Home Meds and New Rx's Prescriptions: New cephalexin 500 mg tablet 500 mg PO BID Qty: 13 0RF phenazopyridine [Pyridium] 100 mg tablet 100 mg PO QPC PRNQty: 6 0RF Continued bisoprolol fumarate 5 mg tablet 5 mg PO BID Qty: 180 3RF carbidopa-levodopa 10-100 mg tablet 1 tab PO QHS Qty: 90 3RF vitamin B complex [B Complex-Vitamin B12] Tablet 1 tab PO DAILY multivitamin 1 EACH tablet 1 ea PO DAILY Cosamin ASU 1 EACH capsule 1 ea PO DAILY cholecalciferol (vitamin D3) [Vitamin D3] 2,000 UNIT capsule 1,000 unit PO DAILY simvastatin [Zocor] 20 mg tablet 20 mg PO HS Qty: 90 3RF Eliquis 5 mg tablet 5 mg PO BID Qty: 180 3RF hydroxyzine HCl 10 mg tablet 10 mg PO DAILY Qty: 90 3RF ibuprofen 600 mg tablet 600 mg PO TID PRN (Reason: pain) Qty: 90 0RF Discharge Instructions Instructions: Urinary Tract Infection, Adult ED Additional Instructions: Please drink plenty of fluid to stay hydrated and allow for plenty of rest. Take full course of antibiotic as prescribed. You are also prescribed a medication to treat urinary pain. This may change the color of your urine to an orange color. Please follow-up with your primary care physician. Return to the emergency department immediately for any worsening or new concerning symptoms. Referrals: Cabrera Arvizu MD [Primary Care Provider] - [facility] General Mode of arrival: ambulatory. Date/Time Provider Initiated Documentation: 04/10/25 07:52. Limitations to Documentation: no limitations. Information obtained by: patient. HPI Narrative: HISTORY OF PRESENT ILLNESS The patient presents with urinary frequency since last night, characterized by frequent urination with minimal output and discomfort during urination by morning. Trace blood in urine noted. No fevers, chest pain, shortness of breath, or renal pain. Recently informed of prediabetes during annual check-up, advised to lose weight and reduce sugar intake, currently monitored. She recalls a similar episode 6 months ago treated effectively with antibiotics at [facility]. Related Data Home Medications ?Medication ?Instructions ?Recorded ?Confirmed multivitamin 1 ea PO DAILY 01/20/13 04/10/25 glucosamine 375 mg-chondroitin sul 1 ea PO DAILY 01/09/14 04/10/25 A 200 mg-herb no.182 100 mg capsule (Cosamin ASU) cholecalciferol (vitamin D3) 50 1,000 unit PO DAILY 01/13/15 04/10/25 mcg (2,000 unit) capsule (Vitamin D3) vitamin B complex (B 1 tab PO DAILY 07/26/21 04/10/25 Complex-Vitamin B12 tablet) ibuprofen 600 mg tablet 600 mg PO TID PRN pain #90 tabs 02/26/24 04/10/25 simvastatin 20 mg tablet (Zocor) 20 mg PO HS #90 tab-caps 09/06/24 04/10/25 apixaban 5 mg tablet (Eliquis) 5 mg PO BID #180 tabs 12/04/24 04/10/25 hydroxyzine HCl 10 mg tablet 10 mg PO DAILY #90 tabs 01/05/25 04/10/25 bisoprolol fumarate 5 mg tablet 5 mg PO BID #180 tabs 03/05/25 04/10/25 carbidopa 10 mg-levodopa 100 mg 1 tab PO QHS #90 tabs 03/05/25 04/10/25 tablet cephalexin 500 mg tablet 500 mg PO BID #13 tabs 04/10/25 phenazopyridine 100 mg tablet 100 mg PO QPC PRN 6 doses #6 tabs 04/10/25 (Pyridium) Previous Rx's ?Medication ?Instructions ?Recorded ibuprofen 600 mg tablet 600 mg PO TID PRN pain #90 tabs 02/26/24 simvastatin 20 mg tablet (Zocor) 20 mg PO HS #90 tab-caps 09/06/24 apixaban 5 mg tablet (Eliquis) 5 mg PO BID #180 tabs 12/04/24 hydroxyzine HCl 10 mg tablet 10 mg PO DAILY #90 tabs 01/05/25 bisoprolol fumarate 5 mg tablet 5 mg PO BID #180 tabs 03/05/25 carbidopa 10 mg-levodopa 100 mg 1 tab PO QHS #90 tabs 03/05/25 tablet cephalexin 500 mg tablet 500 mg PO BID #13 tabs 04/10/25 phenazopyridine 100 mg tablet 100 mg PO QPC PRN 6 doses #6 tabs 04/10/25 (Pyridium) Allergies Allergy/AdvReac Type Severity Reaction Status Date / Time codeine AdvReac ITCHY NOSE Verified 04/10/25 07:51 General Stated Complaint: Urinary MARIA L: 4 Review of Systems All systems reviewed & are unremarkable except as noted in HPI and below Constitutional Constitutional: Denies fever(s) Genitourinary Genitourinary: Reports as per HPI Exam Const General: cooperative and no acute distress HENMT Mouth: moist mucous membranes Eyes Conjunctivae: normal conjunctivae Sclera: normal sclerae Resp Auscultation: clear to auscultation bilaterally, no rales, no rhonchi and no wheezes Cardio Rate: regular rate and not tachycardic Rhythm: regular rhythm GI Palpation: soft, not firm, no guarding, no masses, not rigid and nontender Skin General skin exam: no rashes or lesions noted Neuro General: patient alert, patient awake and tone normal Extrem General: no edema Course Vital Signs Vital signs: Vital Signs Temperature 35.8 C L 04/10/25 07:47 Pulse 76 04/10/25 07:47 Respiratory Rate 15 04/10/25 07:47 Blood Pressure 149/70 H 04/10/25 07:47 Pulse Oximetry 96 04/10/25 07:47 Temperature 35.8 C L 04/10/25 07:50 Temperature Source Tympanic 04/10/25 07:50 Pulse 76 04/10/25 07:50 Respiratory Rate 15 04/10/25 07:50 Blood Pressure 149/70 H 04/10/25 07:50 Blood Pressure Position Sitting 04/10/25 07:50 Pulse Oximetry 96 04/10/25 07:50 Oxygen Delivery Method Room Air 04/10/25 07:50 Oxygen Flow Rate 0 04/10/25 07:50 Pain Level 5 04/10/25 07:50 Lab/Test Results Lab/Test Results: Laboratory Tests Range/Units 04/10/25 08:02 Urine Color (Yellow) Dark Yellow Urine Clarity (Clear) Cloudy Urine pH (5-8) 6.0 Ur Specific [place] (1.005-1.025) 1.025 Urine Protein (Neg-Trace) mg/dL 100 H Urine Ketones (Negative) mg/dL Negative Urine Blood (Negative) Large H Urine Nitrite (Negative) Negative Urine Bilirubin (Negative) Negative Urine Urobilinogen (Up to 0.2) mg/dL 0.2 Ur Leukocyte Esterase (Negative) Moderate H Urine Glucose (Negative) mg/dL 100 H Medical Decision Making ASSESSMENT AND PLAN Initial Assessment: Patient presents with increased urinary frequency and discomfort since last night. History of urinary tract infection treated successfully with Keflex. ED Course: - Reviewed medical record: urine culture from 01/15/2025 grew E. coli greater than 100,000, pansensitive. - Provided initial dose of Keflex in ED. - Prescription for Pyridium for pain management. - Urine sample collected for culture and sensitivity testing. - Blood sugar test performed. 98. Final Assessment: Patient's urinary symptoms likely due to a recurrent urinary tract infection. Clinical Impression: - Urinary tract infection - Prediabetes Disposition: - Discharge: Patient to be discharged with prescription for Keflex and Pyridium. - Follow-Up: Patient advised to follow up for urine culture results and potential change in antibiotic if resistant bacteria are found. MDM Components Evaluation: - Number of Differential Diagnoses or Management Options: Urinary tract infection, Prediabetes - Amount and Complexity of Data Reviewed: Reviewed previous urine culture results, performed blood sugar test, collected urine sample for culture. - Risk of Complication and Morbidity or Mortality: Increased risk of infections due to prediabetes, potential for antibiotic resistance. This document was written with the assistance of NEELIMA Correa. The patient consented to its use. Quality:SDOH Health Related Social Needs: No Data to Display PFSH All Active Problems Acute UTI (Acute) Neck pain (Acute) Sprain of right wrist (Acute) Osteoarthritis of right knee (Acute) Arthritis of carpometacarpal (CMC) joint of left thumb (Acute) Trigger finger, left middle finger (Acute) S/P Release: 02/26/2024 Actinic keratosis (Acute) Gynecologic exam normal (Acute) Numbness and tingling in left arm (Acute) Vertigo (Acute) Benign paroxysmal positional vertigo of left ear (Acute) Benign paroxysmal positional vertigo, bilateral (Acute) Hammertoe (Acute) Pain in toe (Acute) Corns and callosities (Acute) COVID-19 (Acute ~11/22/22) Hypoestrogenism (Acute) Colon polyps (Acute) 02/26/15; SERRATED LESION (q 3years) 2018: colono. pending- Hyperlipidemia (Acute 07/28/13) Osteoarthritis of knee (Acute) S/P left knee arthroscopy 2016: /partial medial and lat. menicectomy Restless legs (Acute) Sinus tachycardia (Acute 04/01/18) Paroxysmal atrial fibrillation (Chronic) Dx 2018. On chronic anticoagulation Raynauds phenomenon (Chronic) Obstructive sleep apnea syndrome in adult (Acute) Hyperthyroidism (Acute 09/04/11) Herpes simplex (Acute) Allergic rhinitis (Acute) POLST (Physician Orders for Life-Sustaining Treatment) (Acute) Recurrent low back pain (Acute) tx with PT Chronic urticaria (Acute) 01/2022-History of recurrent urticaria, well managed with low-dose daily hydroxyzine. Patient on this for years with good tolerability. Flare of urticaria with attempt to titrate off Hyperlipidemia (Acute) Low back pain (Acute) Trigger finger, right index finger (Acute) S/P Release: 06/12/2023 Trigger finger, right little finger (Acute) S/P Release: 06/12/2023 Medical History Vertigo Hematuria 2020. Nl cystoscopy. Urethral caruncle treated with E2. Sx resolved 2021. Impacted cerumen of both ears Conductive hearing loss Surgical History Trigger finger, right middle finger s/p trigger release DOS: 06/09/22 History of surgery on wrist Hx of knee surgery Pt denies this. She states she broke her patella, no surgery, just had to be in a knee imobilizer.HE Hx of colonoscopy Hx of appendectomy Hx of cholecystectomy Family History Mother , SUICIDE at age 47. Depression Father , AGE 34 No problems noted. Sister , AGE 72 RA (rheumatoid arthritis) Brain aneurysm Hyperlipidemia Stroke Hypertension Daughter , 59 Alcohol use disorder Heart disease Substance use disorder Social History Smoking/Tobacco Use Status: Never Second Hand Exposure: Yes Smoking risk assessment performed?: Yes Alcohol Intake: former Drug use: Never Substance use type: does not use Counseling given: No Adopted: No Caregiver/Support person: No Household members: spouse and other Details: Orly Regan. Has bladder CA. Completed treatments Housing: house Number of Children: 1 number of grandchildren: 1 Communication Needs: None Education Level: high school Do you need help understanding health information?: Rarely current occupation: Retired traveling inventory associate/ project leader Pets and animals: Yes Pets and animals: cat(s) Sexually active: No Do you think of yourself as: straight/heterosexual Current gender identity: female What is your relationship status?: How often do you talk on the phone with friends or family?: three or more times per week How often do you get together with friends or relatives?: once per week How often do you attend worship or scientology services?: 1-3 times per year Do you belong to any clubs or organized social groups?: yes Panel score (0-1 are the most socially isolated patients): 3 What type of physical activity do you participate in: walking and yoga Duration: 15-30 minutes/day Frequency: 5-6 times per week Theodora/Scientology: Zoroastrian Special theodora needs: No Seatbelt use: always Helmet use: Yes Helmet use: always Drive intox or ride w/intox corporate driver: No Firearms in home: No Do you feel safe at home: Yes Do you feel safe in your relationship?: Yes Would you like helpful sources: No
[2025-04-10 08:20] LABS: Bacteria Rare HPF (Negative); C & S Indicated? Yes; Casts 0-2 Hyaline LPF (Negative); Crystals Negative HPF (Negative); Epithelial Cells Few HPF (Negative); Mucus Negative (Negative)
[2025-04-10] MEDS: Cephalexin 500 MG CAP PO (08:32)
[2025-04-10 09:13] VITALS: BP 191/63; PULSE 69; RESP 18; O2SAT 98
--- NOTE | 2025-04-12 09:27 | NUR.NOTE ---
Accessed Pt chart to identify antibiotics for the Specimen Report Document was given to Dr Barry for follow thru
--- NOTE | 2025-04-12 09:28 | W.ED.FU ---
Date of service: 04/10/25 Follow Up Plan: Urine culture results reviewed. No significant colony growth however given her age and symptoms, would continue antibiotics as prescribed.
== END 2025-04-10 08:45 | disposition home or self-care (01) ==
PROVIDERS: Emergency Provider Student in an Organized Health Care Education/Training Program; PCP Family Medicine
DX: N39.0 Urinary tract infection, site not specified (principal); Z79.01 Long term (current) use of anticoagulants
CPT/HCPCS: 82962; 99283; 81003; 81015; 87086

== ENCOUNTER → 2025-11-10 08:05 | Outpatient (BNVA) | payer MEDICARE, SELFPAY | PROVIDERS: PCP Family Medicine; Referring Provider Family Medicine; Visit Provider Podiatrist | DX: L60.0 Ingrowing nail (principal); M20.42 Other hammer toe(s) (acquired), left foot; M79.672 Pain in left foot; L84 Corns and callosities | CPT/HCPCS: 99213 ==